=== PATIENT | female | born 1960 | race Caucasian/White ===

== ENCOUNTER 2017-04-29 14:36 | Observation (INO) | payer MEDICARE, MEDICAID ==
[2017-04-29] MEDS ORDERED: cefTRIAXone 1 gm 1 GM/100 ML BAG IV STA (15:15)
[2017-04-29] MEDS ORDERED: Sodium Chloride 0.9% 1,000 ML IV STA (15:15)
--- NOTE | 2017-04-29 15:15 | ED PDOC ---
Arrival/HPI - General Chief Complaint: Abdominal Pain Time Seen by Provider: 04/29/17 15:05 Historian: Patient - History of Present Illness Narrative History of Present Illness (Text): 04/29/17 15:10 a 56 year old female whose past medical history includes hypercholesterolemia, diabetes, and asthma presents to the emergency department with epigastric and lower abdominal pain and dark colored foul smelling urine for the past 7 days. The patient reports she has been on Flagyl since her symptoms began, but has not seen improvement. She notes nausea, but denies any vomiting, diarrhea, chest pain, shortness or breath, or any other symptoms at this time. Time/Duration: < week Symptom Onset: Gradual Symptom Course: Unchanged Activities at Onset: Light Context: Home Past Medical History - Provider Review Nursing Documentation Reviewed: Yes - Infectious Disease Hx of Infectious Diseases: None - Tetanus Immunization Tetanus Immunization: Unknown - Cardiac Hx Hypertension: Yes Hx Pacemaker: No - Pulmonary Hx Respiratory Disorders: Yes Hx Asthma: Yes - Neurological Hx Paralysis: No - HEENT Hx HEENT Disorder: Yes Hx Cataracts: Yes (b/l sx) - Renal Hx Renal Disorder: No - Endocrine/Metabolic Hx Endocrine Disorders: Yes Hx Diabetes Mellitus Type 2: Yes (NIDDM) Hx Hypothyroidism: Yes - Hematological/Oncological Hx Blood Transfusions: No Hx Blood Transfusion Reaction: No - Integumentary Hx Dermatological Disorder: No - Musculoskeletal/Rheumatological Hx Musculoskeletal Disorders: Yes (RA) - Gastrointestinal Hx Gastrointestinal Disorders: Yes (hemorrhoids, constipation, obese) Hx Gastroesophageal Reflux: Yes - Genitourinary/Gynecological Hx Genitourinary Disorders: No - Psychiatric Hx Emotional Abuse: No Hx Physical Abuse: No Hx Substance Use: No - Surgical History Hx Cholecystectomy: Yes Hx Hysterectomy: Yes Hx Orthopedic Surgery: Yes (b/l knee sx) Other/Comment: b/l arm sx for swelling, - Anesthesia Hx Anesthesia Reactions: Yes (PALPITATIONS) Hx Malignant Hyperthermia: No - Suicidal Assessment Feels Threatened In Home Enviroment: No Family/Social History - Physician Review Nursing Documentation Reviewed: Yes Family/Social History: No Known Family HX, Unknown Family HX Smoking Status: Never Smoked Hx Alcohol Use: No Hx Substance Use: No Hx Substance Use Treatment: No Allergies/Home Meds Allergies/Adverse Reactions: Allergies apple Allergy (Verified 11/04/16 17:25) ITCHING/NASAL,THROAT CONGESTION Home Medications: Home Meds Medication Instructions Recorded Confirmed Allopurinol [Zyloprim] 100 mg PO DAILY 04/29/17 04/29/17 Aspirin [Adult Low Dose Aspirin EC] 81 mg PO DAILY 04/29/17 04/29/17 Bisoprolol/HCTZ [Ziac 5 MG-6.25 MG] 1 tab PO DAILY 04/29/17 04/29/17 Ergocalciferol (Vitamin D2) 50,000 unit PO QWK 04/29/17 04/29/17 [Vitamin D2] Levothyroxine [Synthroid] 25 mcg PO DAILY 04/29/17 04/29/17 Linaclotide [Linzess] 290 mcg PO DAILY 04/29/17 04/29/17 Methenamine Hippurate 1 gm PO DAILY 04/29/17 04/29/17 Metronidazole [Flagyl] 500 mg PO QID 04/29/17 04/29/17 Pravastatin Sodium [Pravachol] 40 mg PO DAILY 04/29/17 04/29/17 SITagliptin [Januvia] 100 mg PO DAILY 04/29/17 04/29/17 Physical Exam - Physical Exam Narrative Physical Exam (Text): 04/29/17 15:23 - Review of Systems Constitutional: Normal. absent: Fatigue, Weight Change, Fevers Eyes: Normal ENT: Normal Respiratory: Normal absent: SOB, Cough, Sputum Cardiovascular: Normal absent: Chest pain, Palpitations, Syncope Gastrointestinal: + Nausea, Abdominal pain absent: Diarrhea, Vomiting Genitourinary: + Foul smelling urine. Discolored dark urine. absent: Dysuria, Frequency, Hematuria Musculoskeletal: Normal. absent: Arthralgias, Back Pain, Neck Pain Skin: Normal Neurological: Normal absent: Focal Weakness Endocrine: Normal Hemo/Lymphatic: Normal Psychiatric: Normal - Physical exam Patient appears age appropriate, speaking full sentences without difficulty - Systems Exam Head: Present: Atraumatic, Normocephalic Pupils: Present: PERRL Extraocular Muscles: Present: EOMI Conjunctiva: Present: Normal Mouth: Present: Moist Mucous Membranes Neck: Present: Normal Range of Motion. No: MIDLINE TENDERNESS, Paraspinal Tenderness Respiratory/Chest: Present: Clear to Auscultation, Good Air Exchange. No: Respiratory Distress, Accessory Muscle Use, Tachypnic Cardiovascular: Present: Regular Rate and Rhythm, Normal S1, S2, Peripheral Pulses Present. No: Murmurs Abdomen: Present: Epigastric and suprapubic tenderness. Normal Bowel Sounds, No : , Peritoneal Signs, Rebound, Guarding, Distention Back: Present: Normal Inspection. No: Midline Tenderness, Paraspinal Tenderness Upper Extremity: Present: Normal Inspection. No: Cyanosis, Edema Lower Extremity: Present: Normal Inspection. No: Edema Neurological: Present: GCS=15, Speech Normal, cranial nerves II through XII fully intact with no cerebellar abnormality, neuro-sensory fully intact. No focal neurological deficits. Skin: Present: Warm, Dry, Normal Color. No: Rashes Lymphatic: Present: OX3, NI, NC Psychiatric: Present: Alert, Oriented x 3, Normal Insight, Normal Concentration Vital Signs Reviewed: Yes Vital Signs Temp Pulse Resp BP Pulse Ox 04/29/17 16:37 66 16 110/64 100 04/29/17 15:30 79 16 107/69 98 04/29/17 14:43 98.7 F 104 H 16 107/72 96 Temperature: Afebrile Blood Pressure: Normal Pulse: Tachycardic Respiratory Rate: Normal Appearance: Positive for: Well-Appearing Pain Distress: None Mental Status: Positive for: Alert and Oriented X 3 Medical Decision Making ED Course and Treatment: 04/29/17 15:26 Impression: A 56 year old female with epigastric and abdominal pain with dark colored foul smelling urine. Pt has epigastric and suprapubuc tenderness to palpation Differential Diagnosis included but are not limited to: UTI, pyelo, non- specific abdominal pain Plan: -- Abdominal & Pelvis ultrasound -- EKG -- Labs -- Chest X-Ray -- Toradol, Zofran, Rocephin, IV fluids -- Urinalysis -- Reassess and disposition Prior Visits: Notes and results from previous visits were reviewed. Patient was last seen on 11/04/16 for DVT and was hospitalized. Progress Notes: EKG: Ordered, reviewed, and independently interpreted the EKG. Rate : 90 BPM Rhythm : NSR Interpretation : No ST-segment elevations or depressions, no T-wave inversions, normal intervals. 04/29/17 16:31 Chest X-Ray Doctor'S Assistant : Stan Pittman MD HISTORY:epig pain COMPARISON:11/04/2016 FINDINGS: LUNGS: No active pulmonary disease. 04/29/17 17:20 pt still cp abd pain despite toradol and morphine states she does not feel comfortable being dc'd home dw Dr. Taylor, accepted obs on med/surg to her service pt aware of and agrees with plan - Lab Interpretations Lab Results: 04/29/17 15:25 04/29/17 15:25 Lab Results 04/29/17 15:25: Total Creatine Kinase 69 04/29/17 15:25: Sodium 141, Potassium 4.3, Chloride 109 H, Carbon Dioxide 22, Anion Gap 14, BUN 27 H, Creatinine 1.5 H, Est GFR ( Amer) 44, Est GFR ( Non-Af Amer) 36, Random Glucose 129 H, Calcium 9.6, Total Bilirubin 0.4, AST 23 , ALT 13, Alkaline Phosphatase 75, Total Protein 8.1, Albumin 3.9, Globulin 4.2 , Albumin/Globulin Ratio 0.9 L, Lipase 92 04/29/17 15:25: PT 11.1, INR 1.03, APTT 29.8 04/29/17 15:25: WBC 8.6, RBC 4.96, Hgb 12.2, Hct 38.8, MCV 78.2 L, MCH 24.6 L, MCHC 31.4, RDW 16.7 H, Plt Count 247, MPV 9.2, Gran % 64.3, Lymph % (Auto) 24.6 , [place] % (Auto) 9.2 H, Eos % (Auto) 1.7, Baso % (Auto) 0.2, Gran # 5.55, Lymph # 2.1, [place] # 0.8 H, Eos # 0.2, Baso # 0.02 04/29/17 15:20: Urine Color Yellow, Urine Appearance Sl cloudy, Urine pH 6.0, Ur Specific [place] 1.025, Urine Protein Trace H, Urine Glucose (UA) Negative, Urine Ketones Trace H, Urine Blood Negative, Urine Nitrate Negative, Urine Bilirubin Negative, Urine Urobilinogen 0.2, Ur Leukocyte Esterase Trace H, Urine RBC Negative, Urine WBC 1 - 3, Ur Epithelial Cells 4 - 5, Urine Bacteria Mod, Urine Other Uyeast - RAD Interpretation Radiology Orders: 04/29/17 15:13 ABD & PELVIS W/O PO OR IV CONT [CT] Stat 04/29/17 15:14 CHEST PORTABLE [RAD] Stat - Medication Orders Current Medication Orders: Discontinued Medications Ceftriaxone Sodium (Rocephin 1 Gram Ivpb) 1 gm in 100 mls @ 200 mls/hr IV STAT STA PRN Reason: Protocol Stop: 04/29/17 15:44 Last Admin: 04/29/17 15:32 Dose: 200 mls/hr Sodium Chloride (Sodium Chloride 0.9%) 1,000 mls @ 1,000 mls/hr IV .Q1H STA Stop: 04/29/17 16:14 Last Admin: 04/29/17 15:30 Dose: 1,000 mls/hr Ketorolac Tromethamine (Toradol) 30 mg IVP STAT STA Stop: 04/29/17 15:16 Last Admin: 04/29/17 15:32 Dose: 30 mg Re-Assess: TONY Pain Assessment Document 04/29/17 16:32 YP (Rec: 04/29/17 16:55 YP [facility] [place]-[id number]) Pain Reassessment Is this a pain reassessment? Yes Sleep Is patient sleeping during reassessment? No Presence of Pain Presence of Pain Yes Morphine Sulfate (Morphine) 6 mg IVP STAT STA Stop: 04/29/17 16:56 Last Admin: 04/29/17 17:06 Dose: 6 mg Ondansetron HCl (Zofran Inj) 4 mg IVP STAT STA Stop: 04/29/17 15:16 Last Admin: 04/29/17 15:32 Dose: 4 mg Pantoprazole Sodium (Protonix Inj) 40 mg IVP STAT STA Stop: 04/29/17 16:08 Last Admin: 04/29/17 16:14 Dose: 40 mg - Scribe Statement The provider has reviewed the documentation as recorded by the Wood Kulkarni Provider Scribe Attestation: All medical record entries made by the Scribluis alfredo were at my direction and personally dictated by me. I have reviewed the chart and agree that the record accurately reflects my personal performance of the history, physical exam, medical decision making, and the department course for this patient. I have also personally directed, reviewed, and agree with the discharge instructions and disposition. Disposition/Present on Arrival - Present on Arrival Any Indicators Present on Arrival: No History of DVT/PE: No History of Uncontrolled Diabetes: No Urinary Catheter: No History of Decub. Ulcer: No History Surgical Site Infection Following: None - Disposition Have Diagnosis and Disposition been Completed?: Yes Diagnosis: Abdominal pain Disposition: HOSPITALIZED Disposition Time: 17:30 Patient Plan: Observation Condition: STABLE Forms: [email or web address] (Sammarinese)
[2017-04-29 15:34] LABS: URINE BILIRUBIN NEGATIVE (NEGATIVE); URINE BLOOD NEGATIVE (NEGATIVE); URINE GLUCOSE (UA) NEGATIVE (NEGATIVE); URINE KETONE TRACE mg/dL (NEGATIVE); URINE LEUKOCYTE ESTERASE TRACE Leu/uL (NEGATIVE); URINE PROTEIN TRACE mg/dL (<30 mg/dL); URINE UROBILINOGEN 0.2 E.U./dL (<1 E.U./dL)
[2017-04-29 15:35] LABS: ADD MANUAL DIFF? NO
[2017-04-29 15:36] LABS: URINE APPEARANCE SL CLOUDY (CLEAR); URINE COLOR YELLOW (YELLOW)
[2017-04-29 15:38] LABS: BASO # 0.02 K/mm3 (0.0-2.0); BASO % 0.2 % (0.0-3.0); EOS # 0.2 (0.0-0.7); EOS % 1.7 % (1.5-5.0); GRAN # 5.55 (1.4-6.5); GRAN % 64.3 % (50.0-68.0); HEMATOCRIT 38.8 % (36.0-48.0); LYMPH # 2.1 (1.2-3.4); LYMPH % 24.6 % (22.0-35.0); MEAN CELL VOLUME 78.2 fL (80.0-105.0); MEAN CORPUSCULAR HEMOGLOBIN 24.6 pg (25.0-35.0); MEAN CORPUSCULAR HGB CONC 31.4 g/dl (31.0-37.0); MEAN PLATELET VOLUME 9.2 fl (7.0-11.0); MONO # 0.8 (0.1-0.6); MONO % 9.2 % (1.0-6.0); PLATELET COUNT 247 10^3/uL (120.0-450.0); RED CELL DISTRIBUTION WIDTH 16.7 % (11.5-14.5); WHITE BLOOD COUNT 8.6 10^3/ul (4.5-11.0)
[2017-04-29 15:48] LABS: ALB/GLOB RATIO 0.9 (1.1-1.8); BILIRUBIN,TOTAL 0.4 mg/dL (0.2-1.3); CALCIUM 9.6 mg/dL (8.4-10.5); POTASSIUM 4.3 mmol/L (3.6-5.0); TOTAL PROTEIN 8.1 g/dL (5.8-8.3)
[2017-04-29 15:52] LABS: INR 1.03 (0.93-1.08); PARTIAL THROMBOPLASTIN TIME 29.8 Seconds (23.7-30.8)
[2017-04-29 15:53] LABS: URINE BACTERIA MOD (NEG); URINE RBC NEGATIVE /hpf (0-2)
--- NOTE | 2017-04-29 16:05 | RAD ---
HISTORY: epig pain COMPARISON: 11/04/2016 FINDINGS: LUNGS: No active pulmonary disease. PLEURA: No significant pleural effusion identified, no pneumothorax apparent. CARDIOVASCULAR: Normal. OSSEOUS STRUCTURES: No significant abnormalities. VISUALIZED UPPER ABDOMEN: Normal. OTHER FINDINGS: None. IMPRESSION: No active disease.
--- NOTE | 2017-04-29 17:03 | CT ---
PROCEDURE: CT Abdomen and Pelvis without intravenous contrast HISTORY: abd pain, hematuria COMPARISON: None. TECHNIQUE: Without contrast. Contrast Dose: Radiation dose: Total exam DLP = 1377 mGy-cm. This CT exam was performed using one or more of the following dose reduction techniques: Automated exposure control, adjustment of the mA and/or kV according to patient size, and/or use of iterative reconstruction technique. FINDINGS: LOWER THORAX: Unremarkable. LIVER: Unremarkable. No gross lesion or ductal dilatation. GALLBLADDER AND BILE DUCTS: Removed PANCREAS: Unremarkable. No gross lesion or ductal dilatation. SPLEEN: Unremarkable. ADRENALS: Unremarkable. No mass. KIDNEYS AND URETERS: Unremarkable. No hydronephrosis. No solid mass. VASCULATURE: Unremarkable. No aortic aneurysm. BOWEL: Unremarkable. No obstruction. No gross mural thickening. APPENDIX: Unremarkable. Normal appendix. PERITONEUM: Unremarkable. No free fluid. No free air. LYMPH NODES: Unremarkable. No enlarged lymph nodes. BLADDER: Unremarkable. REPRODUCTIVE: Unremarkable. BONES: No acute fracture. OTHER FINDINGS: None. IMPRESSION: No acute findings
[2017-04-29] MEDS ORDERED: Pantoprazole 40mg/100ml IVPB 40 MG/100 ML BAG IVPB SCH (19:00)
[2017-04-29] MEDS ORDERED: Albuterol-Ipratrop 3 mg / 0.5 (3 ml) UD IH PRN (19:08)
--- NOTE | 2017-04-29 19:12 | CP.PCM.PN ---
Subjective - Date & Time of Evaluation Date of Evaluation: 04/29/17 Time of Evaluation: 19:12 - Subjective Subjective: Requested by Dr.G. Singletary to enter order for ESR for her. Objective - Vital Signs/Intake and Output Vital Signs (last 24 hours): Temp Pulse Resp BP Pulse Ox 98.7 F 85 16 104/60 97 04/29/17 14:43 04/29/17 17:50 04/29/17 17:50 04/29/17 17:50 04/29/17 17:50 - Medications Medications: Current Medications Hydromorphone HCl (Dilaudid) 0.5 mg IVP Q6H PRN PRN Reason: Pain, severe (8-10) Pantoprazole Sodium (Protonix 40mg Ivpb) 40 mg in 100 mls @ 20 mls/hr IVPB .Q5H TINO Sodium Chloride (Sodium Chloride 0.9%) 1,000 mls @ 100 mls/hr IV .Q10H TINO - Labs Labs: PT 11.1 Seconds (9.9-11.8) 04/29/17 15:25 INR 1.03 (0.93-1.08) 04/29/17 15:25 APTT 29.8 Seconds (23.7-30.8) 04/29/17 15:25
--- NOTE | 2017-04-29 19:40 | CP.PCM.HP ---
History of Present Illness - History of Present Illness History of Present Illness: Patient is a 56 year old female with past medical history of GERD, DM2, Asthma, elevated cholesterol and DVT in 10/2016 who presents with one week history of abdominal pain and dark colored urine. The patient reports the abdominal pain is mid epigastric, dull, without radiation and has been getting progressively worse throughout the week. She denies diarrhea, fever, chest pain, shortness of breath, and vomiting. She was prescribed a week course of flagyl by her PCP for the presenting symptoms. The patient was evaluated in the emergency department and a CT abdomen showed no acute findings. The patient was treated with IV morphine and zofran for symptoms. Patients WBC was normal and her BUN/Cr was elevated. The patient states she has had appropriate fluid intake. Urinalysis showed presence of yeast, trace ketones, protein and leukoesterase. Patient denies any pain with urination or difficulty with urination. PMH: GERD, DM2, Elevated CH, Asthma, hx of DVT PSH: Hysterectomy with oopherectomy ALL: NKDA SocHx: Tobacco denies, ETOH denies, Drugs denies, Lives at home by herself Meds: See MAR Present on Admission - Present on Admission Any Indicators Present on Admission: Yes History of DVT/PE: Yes History of Uncontrolled Diabetes: No Urinary Catheter: No Decubitus Ulcer Present: No Review of Systems - Constitutional Constitutional: absent: Chills, Fever, Headache, Weight Loss - Cardiovascular Cardiovascular: As Per HPI, Chest Pain - Respiratory Respiratory: As Per HPI - Gastrointestinal Gastrointestinal: Abdominal Pain, Belching, Heartburn, Nausea. absent: Diarrhea , Early Satiety, Vomiting - Genitourinary Genitourinary: absent: Change in Urinary Stream, Difficulty Urinating, Dysuria - Reproductive: Female Reproductive:Female: Vaginal Discharge (watery ), Vaginal Odor. absent: Abnormal Vaginal Bleeding - Integumentary Integumentary: absent: Pruritus, Rash, Swelling - Neurological Neurological: As Per HPI - Psychiatric Psychiatric: As Per HPI - Hematologic/Lymphatic Hematologic: absent: Easy Bleeding, Easy Bruising Past Patient History - Infectious Disease Hx of Infectious Diseases: None - Tetanus Immunizations Tetanus Immunization: Unknown - Past Medical History & Family History Past Medical History?: Yes - Past Social History Smoking Status: Never Smoked - CARDIAC Hx Hypertension: Yes Hx Pacemaker: No - PULMONARY Hx Respiratory Disorders: Yes Hx Asthma: Yes - NEUROLOGICAL Hx Paralysis: No - HEENT Hx HEENT Problems: Yes Hx Cataracts: Yes (b/l sx) - RENAL Hx Chronic Kidney Disease: No - ENDOCRINE/METABOLIC Hx Endocrine Disorders: Yes Hx Diabetes Mellitus Type 2: Yes (NIDDM) Hx Hypothyroidism: Yes - HEMATOLOGICAL/ONCOLOGICAL Hx Blood Transfusions: No Hx Blood Transfusion Reaction: No - INTEGUMENTARY Hx Dermatological Problems: No - MUSCULOSKELETAL/RHEUMATOLOGICAL Hx Musculoskeletal Disorders: Yes (RA) - GASTROINTESTINAL Hx Gastrointestinal Disorders: Yes (hemorrhoids, constipation, obese) Hx Gastroesophageal Reflux: Yes - GENITOURINARY/GYNECOLOGICAL Hx Genitourinary Disorders: No - PSYCHIATRIC Hx Emotional Abuse: No Hx Physical Abuse: No Hx Substance Use: No - SURGICAL HISTORY Hx Cholecystectomy: Yes Hx Hysterectomy: Yes Hx Orthopedic Surgery: Yes (b/l knee sx) Other/Comment: b/l arm sx for swelling, - ANESTHESIA Hx Anesthesia Reactions: Yes (PALPITATIONS) Hx Malignant Hyperthermia: No Meds Allergies/Adverse Reactions: Allergies Allergy/AdvReac Type Severity Reaction Status Date / Time apple Allergy ITCHING/NASAL,THROAT Verified 11/04/16 17:25 CONGESTION Physical Exam - Head Exam Head Exam: ATRAUMATIC, NORMAL INSPECTION, NORMOCEPHALIC - Eye Exam Eye Exam: EOMI, PERRL - ENT Exam ENT Exam: Mucous Membranes Dry - Respiratory Exam Respiratory Exam: Clear to Auscultation Bilateral, NORMAL BREATHING PATTERN - Cardiovascular Exam Cardiovascular Exam: REGULAR RHYTHM, +S1, +S2 - GI/Abdominal Exam GI & Abdominal Exam: Normal Bowel Sounds, Soft, Tenderness (mid epigastric) - Exam External exam: NORMAL EXTERNAL EXAM. absent: Ecchymosis, Erythema, Lacerations , Lesions Speculum exam: Cervical Discharge, Vaginal Discharge (white fluid discharge). absent: Vaginal Bleeding Bimanual exam: NORMAL BIMANUAL EXAM - Extremities Exam Extremities exam: Positive for: joint swelling, normal inspection - Neurological Exam Neurological exam: Alert, CN II-XII Intact, Normal Gait, Oriented x3 - Psychiatric Exam Psychiatric exam: Normal Affect, Normal Mood - Skin Skin Exam: Dry, Normal Color, Warm Results - Vital Signs Recent Vital Signs: Last Vital Signs Temp 98.7 F 04/29/17 14:43 Pulse 85 04/29/17 17:50 Resp 16 04/29/17 17:50 BP 104/60 04/29/17 17:50 Pulse Ox 97 04/29/17 17:50 - Labs Result Diagrams: 04/29/17 15:25 04/29/17 15:25 Assessment & Plan - Assessment and Plan (Free Text) Assessment: Patient is a 56 year old female with past medical history of GERD, DM2, elevated cholesterol, esophagitis, and gastritis who presents with abdominal pain lasting one week Plan: 1. Lower abdominal pain secondary to DM2 vs. gastritis vs. adhesions - CT scan of abdomen showing no acute findings - FOBT - GI consult - Protonix - IV Dilaudid 2. Foul smelling vaginal alverto - Chronic history of foul smelling vaginal alverto - UA showing yeast, trace leuk est, ketones, proteins - watery discharge - Vaginal cultures 3. JACINTO - Cr 1.5 from previous 1.2 - IVF 0.9% NS 1 Liter - CMP tomorrow for evaluation 4. DM2 - ISS - ACHS 5. Hx of GERD - Protonix 6. Hx of DVT - Heparin 7. GI/DVT ppx - Protonix and Heparin - Date & Time Date: 04/29/17 Time: 20:13
[2017-04-29] MEDS: Sodium Chloride 0.9% 1,000 ML IV SCH (22:22)
[2017-04-29] MEDS: Insulin Reg-MEDIUM-Coverage SC SCH (22:23)
[2017-04-30 03:20] VITALS: BMI 37.8
[2017-04-30] MEDS ORDERED: Pneumococcal 23-Valent Vaccine IM ONE (03:20)
[2017-04-30 07:40] LABS: ADD MANUAL DIFF? NO
[2017-04-30] MEDS: Insulin Reg-MEDIUM-Coverage SC SCH ×3 (08:00→21:52)
[2017-04-30 08:01] LABS: BASO # 0.03 K/mm3 (0.0-2.0); BASO % 0.5 % (0.0-3.0); EOS # 0.2 (0.0-0.7); EOS % 2.3 % (1.5-5.0); GRAN # 3.79 (1.4-6.5); HEMATOCRIT 37.3 % (36.0-48.0); LYMPH # 2.2 (1.2-3.4); LYMPH % 32.8 % (22.0-35.0); MEAN CELL VOLUME 78.7 fL (80.0-105.0); MEAN CORPUSCULAR HEMOGLOBIN 23.6 pg (25.0-35.0); MONO # 0.5 (0.1-0.6); MONO % 7.4 % (1.0-6.0); PLATELET COUNT 226 10^3/uL (120.0-450.0); RED CELL DISTRIBUTION WIDTH 16.8 % (11.5-14.5); WHITE BLOOD COUNT 6.6 10^3/ul (4.5-11.0)
[2017-04-30 08:05] LABS: ALB/GLOB RATIO 0.9 (1.1-1.8); BILIRUBIN,TOTAL 0.3 mg/dL (0.2-1.3); CALCIUM 8.7 mg/dL (8.4-10.5); POTASSIUM 4.3 mmol/L (3.6-5.0); TOTAL PROTEIN 7.2 g/dL (5.8-8.3)
--- NOTE | 2017-04-30 09:38 | CARD ---
APPROVED REPORT EKG Measurement Heart [id number] <Conclusion> Normal sinus rhythm Normal ECG No change
[2017-04-30] MEDS ORDERED: Non Formulary Medication (Linaclotide [Linzess] 290 MCG) PO SCH (10:00)
[2017-04-30] MEDS: Levothyroxine 25 MCG TAB PO SCH (10:00)
[2017-04-30] MEDS ORDERED: Non Formulary Medication (Bisoprolol/Hctz [Ziac 5-6.25 Mg] 1 TAB) PO SCH (10:00)
--- NOTE | 2017-04-30 10:55 | CP.PCM.CON ---
<Raciel Valles - Last Filed: 04/30/17 10:56> History of Present Illness - History of Present Illness History of Present Illness: PGY5 GI Fellow Consult Note Patient is a 56yo female with PMHx significant for GERD, DM2, Hypothyroidism, dyslipidemia, recent DVT (Oct 2016), asthma who presented to the ED with 3 days of worsening abdominal pain. Pain began in the lower abdomen/suprapubic region and patient noted her urine was becoming darker/malodorous. In the days that followed she began to have epigastric, burning discomfort as well. She tried using Zantac BID as well as Miralax but had no improvement in symptoms. She denies any improvement with defecation. Denies any rectal bleeding/melena, nausea, vomiting, weight loss, dysphagia, fever, chills. She had endoscopy and colonoscopy with Dr Dumont in the end of 2015 which did reveal LA class A esophagitis. PMHx: See HPI PSHx: Cholecystectomy, hysterectomy FHx: Discussed with patient and she denies any prior family history Social: Denies tobacco, EtOH or illicit drug use Endo: EGD - 07/10 - LA A esophagitis Colonoscopy - 09/08 - diverticulosis 12 system ROS performed and negative except where stated above Past Patient History - Infectious Disease Hx of Infectious Diseases: None - Tetanus Immunizations Tetanus Immunization: Unknown - Past Medical History & Family History Past Medical History?: Yes - Past Social History Smoking Status: Never Smoked - CARDIAC Hx Hypertension: Yes Hx Pacemaker: No - PULMONARY Hx Respiratory Disorders: Yes Hx Asthma: Yes - NEUROLOGICAL Hx Neurological Disorder: No - HEENT Hx HEENT Problems: Yes Hx Cataracts: Yes (b/l sx) - RENAL Hx Chronic Kidney Disease: No - ENDOCRINE/METABOLIC Hx Endocrine Disorders: Yes Hx Diabetes Mellitus Type 2: Yes (NIDDM) Hx Hypothyroidism: Yes - HEMATOLOGICAL/ONCOLOGICAL Hx Blood Disorders: Yes Hx Anemia: Yes - INTEGUMENTARY Hx Dermatological Problems: No - MUSCULOSKELETAL/RHEUMATOLOGICAL Hx Musculoskeletal Disorders: Yes (RA) Hx Falls: No - GASTROINTESTINAL Hx Gastrointestinal Disorders: Yes (hemorrhoids, constipation, obese) Hx Gastroesophageal Reflux: Yes - GENITOURINARY/GYNECOLOGICAL Hx Genitourinary Disorders: No - PSYCHIATRIC Hx Emotional Abuse: No Hx Physical Abuse: No Hx Substance Use: No - SURGICAL HISTORY Hx Cholecystectomy: Yes Hx Hysterectomy: Yes Hx Orthopedic Surgery: Yes (b/l knee sx) Other/Comment: b/l arm sx for swelling, - ANESTHESIA Hx Anesthesia Reactions: Yes (PALPITATIONS) Hx Malignant Hyperthermia: No Meds Allergies/Adverse Reactions: Allergies Allergy/AdvReac Type Severity Reaction Status Date / Time apple Allergy ITCHING/NASAL,THROAT Verified 11/04/16 17:25 CONGESTION - Medications Medications: Current Medications Acetaminophen (Tylenol 325mg Tab) 650 mg PO Q6H PRN PRN Reason: Fever >100.4 F Albuterol/Ipratropium (Duoneb 3 Mg/0.5 Mg (3 Ml) Ud) 3 ml IH Q2H PRN PRN Reason: Shortness of Breath Last Admin: 04/29/17 20:50 Dose: 3 ml Aspirin (Ecotrin) 81 mg PO DAILY [facility] Last Admin: 04/30/17 10:00 Dose: 81 mg Atorvastatin Calcium (Lipitor) 10 mg PO DIN [facility] Ergocalciferol (Drisdol 50,000 Intl Units Cap) 1 cap PO QWK [facility] Heparin Sodium (Porcine) (Heparin) 5,000 units SC Q8 [facility] PRN Reason: Protocol Last Admin: 04/30/17 06:00 Dose: 5,000 units Hydromorphone HCl (Dilaudid) 0.5 mg IVP Q6H PRN PRN Reason: Pain, severe (8-10) Pantoprazole Sodium (Protonix 40mg Ivpb) 40 mg in 100 mls @ 20 mls/hr IVPB .Q5H [facility] Sodium Chloride (Sodium Chloride 0.9%) 1,000 mls @ 100 mls/hr IV .Q10H [facility] Last Admin: 04/29/17 22:22 Dose: 100 mls/hr Insulin Human Regular (Humulin R Med) 0 units SC ACHS [facility] PRN Reason: Protocol Last Admin: 04/30/17 08:00 Dose: Not Given Levothyroxine Sodium (Synthroid) 25 mcg PO DAILY [facility] Last Admin: 04/30/17 10:00 Dose: 25 mcg Metronidazole (Flagyl) 500 mg PO QID [facility] PRN Reason: Protocol Stop: 05/02/17 22:01 Last Admin: 04/30/17 09:59 Dose: 500 mg Non-Formulary Medication (Bisoprolol/Hctz [Ziac 5-6.25 Mg]) 1 tab PO DAILY [facility] Non-Formulary Medication (Linaclotide [Linzess]) 290 mcg PO DAILY [facility] Pantoprazole Sodium (Protonix Inj) 40 mg IVP Q12 [facility] Last Admin: 04/30/17 10:00 Dose: 40 mg Physical Exam - Constitutional Appears: Non-toxic, No Acute Distress, Other (obese) - Eye Exam Eye Exam: EOMI, PERRL - ENT Exam ENT Exam: Mucous Membranes Moist - Respiratory Exam Respiratory Exam: Clear to Auscultation Bilateral. absent: Rales, Rhonchi, Wheezes - Cardiovascular Exam Cardiovascular Exam: RRR, +S1, +S2 - GI/Abdominal Exam GI & Abdominal Exam: Normal Bowel Sounds, Soft. absent: Distended, Firm, Guarding, Organomegaly, Rigid, Tenderness - Extremities Exam Extremities exam: Positive for: normal inspection. Negative for: pedal edema - Neurological Exam Neurological exam: Alert, Oriented x3 - Psychiatric Exam Psychiatric exam: Anxious - Skin Skin Exam: Dry, Warm Results - Vital Signs Recent Vital Signs: Last Vital Signs Temp 97.4 F L 04/30/17 07:50 Pulse 63 04/30/17 07:50 Resp 22 04/30/17 07:50 BP 90/52 L 04/30/17 07:50 Pulse Ox 99 04/30/17 07:50 - Labs Result Diagrams: 04/30/17 07:00 04/30/17 07:00 Labs: Laboratory Results - last 24 hr 04/29/17 04/30/17 04/30/17 21:33 07:00 07:00 WBC 6.6 D RBC 4.74 Hgb 11.2 L Hct 37.3 MCV 78.7 L MCH 23.6 L MCHC 30.0 L RDW 16.8 H Plt Count 226 MPV 9.0 Gran % 57.0 Lymph % (Auto) 32.8 Wheeler % (Auto) 7.4 H Eos % (Auto) 2.3 Baso % (Auto) 0.5 Gran # 3.79 Lymph # 2.2 Wheeler # 0.5 Eos # 0.2 Baso # 0.03 Sodium 142 Potassium 4.3 Chloride 113 H Carbon Dioxide 19 L Anion Gap 14 BUN 27 H Creatinine 1.6 H Est GFR ( Amer) 41 Est GFR (Non-Af Amer) 34 POC Glucose (mg/dL) 120 H Random Glucose 109 Calcium 8.7 Total Bilirubin 0.3 AST 22 ALT 20 Alkaline Phosphatase 69 Total Protein 7.2 Albumin 3.3 Globulin 3.8 Albumin/Globulin Ratio 0.9 L 04/30/17 07:17 WBC RBC Hgb Hct MCV MCH MCHC RDW Plt Count MPV Gran % Lymph % (Auto) Wheeler % (Auto) Eos % (Auto) Baso % (Auto) Gran # Lymph # Wheeler # Eos # Baso # Sodium Potassium Chloride Carbon Dioxide Anion Gap BUN Creatinine Est GFR ( Amer) Est GFR (Non-Af Amer) POC Glucose (mg/dL) 112 H Random Glucose Calcium Total Bilirubin AST ALT Alkaline Phosphatase Total Protein Albumin Globulin Albumin/Globulin Ratio Assessment & Plan - Assessment and Plan (Free Text) Assessment: Patient is a 56yo female with PMHx significant for GERD, DM2, Hypothyroidism, dyslipidemia, recent DVT (Oct 2016), asthma who presented to the ED with 3 days of worsening abdominal pain -Lower abdominal/pelvic pain Plan: -CT reviewed, unremarkable -Recommend supportive care -Protonix 40mg PO QAMAC -Miralax 17g PO QD -Evaluate for possible uro/remedial masseur issues -No further recommendations at this time - Date & Time Date: 04/30/17 Time: 07:40 <Jorge Mcduffie - Last Filed: 04/30/17 13:42> Meds - Medications Medications: Current Medications Acetaminophen (Tylenol 325mg Tab) 650 mg PO Q6H PRN PRN Reason: Fever >100.4 F Albuterol/Ipratropium (Duoneb 3 Mg/0.5 Mg (3 Ml) Ud) 3 ml IH Q2H PRN PRN Reason: Shortness of Breath Last Admin: 04/29/17 20:50 Dose: 3 ml Aspirin (Ecotrin) 81 mg PO DAILY [facility] Last Admin: 04/30/17 10:00 Dose: 81 mg Atorvastatin Calcium (Lipitor) 10 mg PO DIN [facility] Ergocalciferol (Drisdol 50,000 Intl Units Cap) 1 cap PO QWK [facility] Heparin Sodium (Porcine) (Heparin) 5,000 units SC Q8 [facility] PRN Reason: Protocol Last Admin: 04/30/17 06:00 Dose: 5,000 units Hydromorphone HCl (Dilaudid) 0.5 mg IVP Q6H PRN PRN Reason: Pain, severe (8-10) Pantoprazole Sodium (Protonix 40mg Ivpb) 40 mg in 100 mls @ 20 mls/hr IVPB .Q5H [facility] Sodium Chloride (Sodium Chloride 0.9%) 1,000 mls @ 100 mls/hr IV .Q10H [facility] Last Admin: 04/29/17 22:22 Dose: 100 mls/hr Metronidazole (Flagyl) 500 mg in 100 mls @ 100 mls/hr IVPB Q8 [facility] PRN Reason: Protocol Insulin Human Regular (Humulin R Med) 0 units SC ACHS [facility] PRN Reason: Protocol Last Admin: 04/30/17 08:00 Dose: Not Given Levothyroxine Sodium (Synthroid) 25 mcg PO DAILY [facility] Last Admin: 04/30/17 10:00 Dose: 25 mcg Miconazole (Monistat 7 Vag Suppository) 100 mg VG HS [facility] Non-Formulary Medication (Bisoprolol/Hctz [Ziac 5-6.25 Mg]) 1 tab PO DAILY [facility] Non-Formulary Medication (Linaclotide [Linzess]) 290 mcg PO DAILY [facility] Pantoprazole Sodium (Protonix Inj) 40 mg IVP Q12 [facility] Last Admin: 04/30/17 10:00 Dose: 40 mg Results - Vital Signs Recent Vital Signs: Last Vital Signs Temp 97.4 F L 04/30/17 07:50 Pulse 63 04/30/17 07:50 Resp 22 04/30/17 07:50 BP 90/52 L 04/30/17 07:50 Pulse Ox 99 04/30/17 07:50 - Labs Result Diagrams: 04/30/17 07:00 04/30/17 07:00 Labs: Laboratory Results - last 24 hr 04/29/17 04/30/17 04/30/17 21:33 07:00 07:00 WBC 6.6 D RBC 4.74 Hgb 11.2 L Hct 37.3 MCV 78.7 L MCH 23.6 L MCHC 30.0 L RDW 16.8 H Plt Count 226 MPV 9.0 Gran % 57.0 Lymph % (Auto) 32.8 Wheeler % (Auto) 7.4 H Eos % (Auto) 2.3 Baso % (Auto) 0.5 Gran # 3.79 Lymph # 2.2 Wheeler # 0.5 Eos # 0.2 Baso # 0.03 pO2 VBG pH VBG pCO2 VBG HCO3 VBG Total CO2 VBG O2 Sat (Calc) VBG Base Excess VBG Potassium Glucose Lactate FiO2 Sodium 142 Potassium 4.3 Chloride 113 H Carbon Dioxide 19 L Anion Gap 14 BUN 27 H Creatinine 1.6 H Est GFR ( Amer) 41 Est GFR (Non-Af Amer) 34 POC Glucose (mg/dL) 120 H Random Glucose 109 Calcium 8.7 Total Bilirubin 0.3 AST 22 ALT 20 Alkaline Phosphatase 69 Total Protein 7.2 Albumin 3.3 Globulin 3.8 Albumin/Globulin Ratio 0.9 L Venous Blood Potassium 04/30/17 04/30/17 04/30/17 07:17 11:00 12:20 WBC RBC Hgb Hct MCV MCH MCHC RDW Plt Count MPV Gran % Lymph % (Auto) Wheeler % (Auto) Eos % (Auto) Baso % (Auto) Gran # Lymph # Wheeler # Eos # Baso # pO2 152 H VBG pH 7.25 L VBG pCO2 46.0 VBG HCO3 20.2 L VBG Total CO2 21.6 L VBG O2 Sat (Calc) 99.6 H VBG Base Excess -7.0 L VBG Potassium 5.3 H Glucose 117 H Lactate 0.8 FiO2 21.0 Sodium 146.0 Potassium Chloride 108.0 H Carbon Dioxide Anion Gap BUN Creatinine Est GFR ( Amer) Est GFR (Non-Af Amer) POC Glucose (mg/dL) 112 H 146 H Random Glucose Calcium Total Bilirubin AST ALT Alkaline Phosphatase Total Protein Albumin Globulin Albumin/Globulin Ratio Venous Blood Potassium 5.3 H Attending/Attestation - Attestation I have personally seen and examined this patient.: Yes I have fully participated in the care of the patient.: Yes I have reviewed all pertinent clinical information: Yes Notes (Text): 04/30/17 13:41 56 year old female with h/o cholecystectomy, hysterectomy admitted with non- specific abdominal pain 1. Abdominal pain 2. Constipation Plan: -CT reviewed, unremarkable -labs normal -recommend bowel regimen with miralax -ok for discharge from GI standpoint -patient identifies Dr. Rogel as her GI doctor so would consult with him if necessary
[2017-04-30 12:28] LABS: VENOUS BLOOD PH 7.25 (7.32-7.43)
[2017-04-30] MEDS ORDERED: Magnesium Citrate Oral SOL (300 ml) PO ONE (13:26)
--- NOTE | 2017-04-30 14:37 | CP.PCM.PN ---
<Galilea Winslow - Last Filed: 04/30/17 15:04> Subjective - Date & Time of Evaluation Date of Evaluation: 04/30/17 Time of Evaluation: 09:30 - Subjective Subjective: Galilea Winslow DO, PGY-1, Internal Medicine, Hospitalist Service Patient seen and examined at bedside. Per nursing no acute events overnight. Patient reports still having generalized abdominal pain and is nauseous. No other complaints at this time. Per previous documentation, patient has a history of DVT and is on Eliquis, states that her PCP told her to just continue ASA. Denies headaches, dizziness, cp, sob, palpitations, urinary symptoms, changes in bowel habits. Objective - Vital Signs/Intake and Output Vital Signs (last 24 hours): Temp Pulse Resp BP Pulse Ox 97.4 F L 63 22 105/56 L 99 04/30/17 07:50 04/30/17 07:50 04/30/17 07:50 04/30/17 11:30 04/30/17 07:50 Intake and Output: 04/30/17 04/30/17 06:59 18:59 Intake Total 180 Balance 180 - Medications Medications: Current Medications Acetaminophen (Tylenol 325mg Tab) 650 mg PO Q6H PRN PRN Reason: Fever >100.4 F Albuterol/Ipratropium (Duoneb 3 Mg/0.5 Mg (3 Ml) Ud) 3 ml IH Q2H PRN PRN Reason: Shortness of Breath Last Admin: 04/29/17 20:50 Dose: 3 ml Aspirin (Ecotrin) 81 mg PO DAILY [facility] Last Admin: 04/30/17 10:00 Dose: 81 mg Atorvastatin Calcium (Lipitor) 10 mg PO DIN [facility] Ergocalciferol (Drisdol 50,000 Intl Units Cap) 1 cap PO QWK [facility] Heparin Sodium (Porcine) (Heparin) 5,000 units SC Q8 [facility] PRN Reason: Protocol Last Admin: 04/30/17 06:00 Dose: 5,000 units Hydromorphone HCl (Dilaudid) 0.5 mg IVP Q6H PRN PRN Reason: Pain, severe (8-10) Pantoprazole Sodium (Protonix 40mg Ivpb) 40 mg in 100 mls @ 20 mls/hr IVPB .Q5H [facility] Sodium Chloride (Sodium Chloride 0.9%) 1,000 mls @ 100 mls/hr IV .Q10H [facility] Last Admin: 04/29/17 22:22 Dose: 100 mls/hr Metronidazole (Flagyl) 500 mg in 100 mls @ 100 mls/hr IVPB Q8 [facility] PRN Reason: Protocol Insulin Human Regular (Humulin R Med) 0 units SC ACHS [facility] PRN Reason: Protocol Last Admin: 04/30/17 08:00 Dose: Not Given Levothyroxine Sodium (Synthroid) 25 mcg PO DAILY [facility] Last Admin: 04/30/17 10:00 Dose: 25 mcg Miconazole (Monistat 7 Vag Suppository) 100 mg VG HS [facility] Non-Formulary Medication (Bisoprolol/Hctz [Ziac 5-6.25 Mg]) 1 tab PO DAILY [facility] Non-Formulary Medication (Linaclotide [Linzess]) 290 mcg PO DAILY [facility] Pantoprazole Sodium (Protonix Inj) 40 mg IVP Q12 [facility] Last Admin: 04/30/17 10:00 Dose: 40 mg - Labs Labs: 04/30/17 07:00 04/30/17 07:00 PT 11.1 Seconds (9.9-11.8) 04/29/17 15:25 INR 1.03 (0.93-1.08) 04/29/17 15:25 APTT 29.8 Seconds (23.7-30.8) 04/29/17 15:25 - Constitutional Appears: Well, No Acute Distress - Head Exam Head Exam: ATRAUMATIC, NORMAL INSPECTION - Eye Exam Eye Exam: EOMI, Normal appearance Pupil Exam: NORMAL ACCOMODATION - ENT Exam ENT Exam: Mucous Membranes Moist - Neck Exam Neck Exam: Full ROM - Respiratory Exam Respiratory Exam: Clear to Ausculation Bilateral, NORMAL BREATHING PATTERN. absent: Rales, Rhonchi, Wheezes - Cardiovascular Exam Cardiovascular Exam: REGULAR RHYTHM, +S1, +S2 - GI/Abdominal Exam GI & Abdominal Exam: Soft, Tenderness. absent: Guarding, Rigid, Rebound Additional comments: Generalized abd tenderness to palpation - Extremities Exam Extremities Exam: Full ROM, Normal Inspection. absent: Calf Tenderness, Tenderness - Back Exam Back Exam: NORMAL INSPECTION - Neurological Exam Neurological Exam: Alert, Awake, Oriented x3 - Psychiatric Exam Psychiatric exam: Normal Affect, Normal Mood - Skin Skin Exam: Normal Color, Warm Assessment and Plan - Assessment and Plan (Free Text) Assessment: Patient is a 56 year old female with past medical history of GERD, DM2, elevated cholesterol, esophagitis, and gastritis who presents with abdominal pain lasting one week Plan: 1. Lower abdominal pain, inflammatory bowel disease vs. colitis vs. adhesions - CT scan of abdomen showing no acute findings - GI consult, F/U recommendations - Continue IVF - Will give 1 dose of IV Rocephin - CLD, will advance as tolerated - Zofran prn nausea - F/U stool studies - F/U urine, blood cx 2. Vaginitis - S/P hysterectomy, with oopherectomy? - Chronic history of foul smelling vaginal discharge, c/o white watery discharge - UA showing yeast, trace leuk est, ketones, proteins - F/U Vaginal cultures - F/U pelvis ultrasound - Continue Monistat Vaginal suppository - Continue IV Flagyl 3. Acute Kidney Injury, likely 2/2 dehydration - Cr 1.6 today - F/U urine lytes - Continue IVF 0.9% NS 1 Liter - F/U CMP tomorrow for evaluation 4. Hx of constipation -On linzess at home -Will order mag citrate -Continue to monitor 5. Hypercholesterolemia -Continue Lipitor -Continue ASA 6. DM2 - ISS - Accuchecks ACHS 7. Hx of GERD - Protonix 8. Hx of DVT - Called pharmacy to verify medications, patient has never filled prescription for Eliquis - Will repeat LE dopplers to assess for DVTs - Continue Heparin 9. Hypothyroidism - Continue Synthroid 10. GI/DVT ppx - Protonix and Heparin <Antonia Zafar - Last Filed: 04/30/17 19:55> Objective - Vital Signs/Intake and Output Vital Signs (last 24 hours): Temp Pulse Resp BP Pulse Ox 98.6 F 80 16 109/68 97 04/30/17 15:54 04/30/17 15:54 04/30/17 15:54 04/30/17 15:54 04/30/17 15:54 Intake and Output: 04/30/17 05/01/17 18:59 06:59 Intake Total 880 Balance 880 - Medications Medications: Current Medications Acetaminophen (Tylenol 325mg Tab) 650 mg PO Q6H PRN PRN Reason: Fever >100.4 F Albuterol/Ipratropium (Duoneb 3 Mg/0.5 Mg (3 Ml) Ud) 3 ml IH Q2H PRN PRN Reason: Shortness of Breath Last Admin: 04/29/17 20:50 Dose: 3 ml Aspirin (Ecotrin) 81 mg PO DAILY [facility] Last Admin: 04/30/17 10:00 Dose: 81 mg Atorvastatin Calcium (Lipitor) 10 mg PO DIN [facility] Last Admin: 04/30/17 17:54 Dose: 10 mg Ergocalciferol (Drisdol 50,000 Intl Units Cap) 1 cap PO QWK [facility] Heparin Sodium (Porcine) (Heparin) 5,000 units SC Q8 [facility] PRN Reason: Protocol Last Admin: 04/30/17 14:59 Dose: 5,000 units Home Med (Home Med) 1 unit PO DAILY [facility] Home Med (Home Med) 1 unit PO DAILY [facility] Hydromorphone HCl (Dilaudid) 0.5 mg IVP Q6H PRN PRN Reason: Pain, severe (8-10) Sodium Chloride (Sodium Chloride 0.9%) 1,000 mls @ 100 mls/hr IV .Q10H [facility] Last Admin: 04/30/17 17:57 Dose: 100 mls/hr Metronidazole (Flagyl) 500 mg in 100 mls @ 100 mls/hr IVPB Q8 [facility] PRN Reason: Protocol Last Admin: 04/30/17 14:59 Dose: 100 mls/hr Insulin Human Regular (Humulin R Med) 0 units SC ACHS [facility] PRN Reason: Protocol Last Admin: 04/30/17 12:00 Dose: Not Given Levothyroxine Sodium (Synthroid) 25 mcg PO DAILY [facility] Last Admin: 04/30/17 10:00 Dose: 25 mcg Miconazole (Monistat 7 Vag Suppository) 100 mg VG HS [facility] Pantoprazole Sodium (Protonix Inj) 40 mg IVP Q12 [facility] Last Admin: 04/30/17 10:00 Dose: 40 mg - Labs Labs: 04/30/17 07:00 04/30/17 07:00 PT 11.1 Seconds (9.9-11.8) 04/29/17 15:25 INR 1.03 (0.93-1.08) 04/29/17 15:25 APTT 29.8 Seconds (23.7-30.8) 04/29/17 15:25 Attending/Attestation - Attestation I have personally seen and examined this patient.: Yes I have fully participated in the care of the patient.: Yes I have reviewed all pertinent clinical information, including history, physical exam and plan: Yes Notes (Text): 04/30/17 19:54 Patient seen and examined at bedside. vitals, labs, admission notes and GI consult reviewed. Recommendations noted, continue IV antibiotics. Agree with the remainder of the plan as outlined by the resident.
[2017-04-30] MEDS ORDERED: LINZESS 290 MG PO SCH (14:47)
[2017-04-30] MEDS ORDERED: Bisoprolol/Hctz [Ziac 5-6.25 Mg] (HOME MED) PO SCH (14:52)
[2017-04-30] MEDS: metroNIDAZOLE IV 500 mg/100 ml 500 MG/100 ML BAG IVPB SCH ×2 (14:59→21:12)
[2017-04-30] MEDS: Sodium Chloride 0.9% 1,000 ML IV SCH ×2 (15:01→17:57)
[2017-04-30] MEDS: HYDROmorphone 0.5 mg/0.5 ml ISec IVP PRN (20:42)
[2017-04-30] MEDS ORDERED: Miconazole 100 MG Vaginal Supp VG SCH (22:00)
[2017-05-01] MEDS: metroNIDAZOLE IV 500 mg/100 ml 500 MG/100 ML BAG IVPB SCH ×2 (05:12→14:51)
[2017-05-01 07:28] LABS: ADD MANUAL DIFF? NO
[2017-05-01 07:41] LABS: BASO # 0.03 K/mm3 (0.0-2.0); BASO % 0.5 % (0.0-3.0); EOS # 0.2 (0.0-0.7); EOS % 2.6 % (1.5-5.0); GRAN # 4.12 (1.4-6.5); GRAN % 63.7 % (50.0-68.0); HEMATOCRIT 36.5 % (36.0-48.0); LYMPH # 1.7 (1.2-3.4); LYMPH % 26.5 % (22.0-35.0); MEAN CELL VOLUME 78.2 fL (80.0-105.0); MEAN CORPUSCULAR HGB CONC 30.7 g/dl (31.0-37.0); MEAN PLATELET VOLUME 9.3 fl (7.0-11.0); MONO # 0.4 (0.1-0.6); MONO % 6.7 % (1.0-6.0); PLATELET COUNT 221 10^3/uL (120.0-450.0); RED CELL DISTRIBUTION WIDTH 16.6 % (11.5-14.5); WHITE BLOOD COUNT 6.5 10^3/ul (4.5-11.0)
[2017-05-01 08:02] LABS: ALB/GLOB RATIO 0.9 (1.1-1.8); BILIRUBIN,TOTAL 0.4 mg/dL (0.2-1.3); CALCIUM 8.8 mg/dL (8.4-10.5); POTASSIUM 4.2 mmol/L (3.6-5.0); TOTAL PROTEIN 7.3 g/dL (5.8-8.3)
[2017-05-01] MEDS: Insulin Reg-MEDIUM-Coverage SC SCH (08:30)
[2017-05-01] MEDS: Levothyroxine 25 MCG TAB PO SCH (10:16)
--- NOTE | 2017-05-01 12:32 | CP.PCM.PN ---
Subjective - Date & Time of Evaluation Date of Evaluation: 05/01/17 Time of Evaluation: 07:45 - Subjective Subjective: Patient seen and examined at bedside. Per nursing no acute events overnight. Patient still having intermittent epigastric pain. Rates 6/10. Tolerating clears. Reports having some nausea this morning but no vomiting. Had a BM this morning. Denies headaches, dizziness, cp, sob, urinary symptoms. Objective - Vital Signs/Intake and Output Vital Signs (last 24 hours): Temp Pulse Resp BP Pulse Ox 98.3 F 75 18 117/54 L 96 05/01/17 08:03 05/01/17 08:03 05/01/17 08:03 05/01/17 08:03 05/01/17 08:03 Intake and Output: 05/01/17 05/01/17 06:59 18:59 Intake Total 2520 Balance 2520 - Medications Medications: Current Medications Acetaminophen (Tylenol 325mg Tab) 650 mg PO Q6H PRN PRN Reason: Fever >100.4 F Albuterol/Ipratropium (Duoneb 3 Mg/0.5 Mg (3 Ml) Ud) 3 ml IH Q2H PRN PRN Reason: Shortness of Breath Last Admin: 04/29/17 20:50 Dose: 3 ml Aspirin (Ecotrin) 81 mg PO DAILY [facility] Last Admin: 05/01/17 10:17 Dose: 81 mg Atorvastatin Calcium (Lipitor) 10 mg PO DIN [facility] Last Admin: 04/30/17 17:54 Dose: 10 mg Ergocalciferol (Drisdol 50,000 Intl Units Cap) 1 cap PO QWK [facility] Heparin Sodium (Porcine) (Heparin) 5,000 units SC Q8 [facility] PRN Reason: Protocol Last Admin: 05/01/17 05:12 Dose: 5,000 units Home Med (Home Med) 1 unit PO DAILY [facility] Last Admin: 05/01/17 10:32 Dose: 1 unit Home Med (Home Med) 1 unit PO DAILY [facility] Last Admin: 05/01/17 10:32 Dose: 1 unit Hydromorphone HCl (Dilaudid) 0.5 mg IVP Q6H PRN PRN Reason: Pain, severe (8-10) Last Admin: 04/30/17 20:42 Dose: 0.5 mg Sodium Chloride (Sodium Chloride 0.9%) 1,000 mls @ 100 mls/hr IV .Q10H [facility] Last Admin: 04/30/17 17:57 Dose: 100 mls/hr Metronidazole (Flagyl) 500 mg in 100 mls @ 100 mls/hr IVPB Q8 [facility] PRN Reason: Protocol Last Admin: 05/01/17 05:12 Dose: 100 mls/hr Insulin Human Regular (Humulin R Med) 0 units SC ACHS [facility] PRN Reason: Protocol Last Admin: 05/01/17 08:30 Dose: Not Given Levothyroxine Sodium (Synthroid) 25 mcg PO DAILY [facility] Last Admin: 05/01/17 10:16 Dose: 25 mcg Miconazole (Monistat 7 Vag Suppository) 100 mg VG HS [facility] Last Admin: 04/30/17 21:53 Dose: 100 mg Pantoprazole Sodium (Protonix Inj) 40 mg IVP Q12 [facility] Last Admin: 05/01/17 10:16 Dose: 40 mg - Labs Labs: 05/01/17 07:10 05/01/17 07:10 PT 11.1 Seconds (9.9-11.8) 04/29/17 15:25 INR 1.03 (0.93-1.08) 04/29/17 15:25 APTT 29.8 Seconds (23.7-30.8) 04/29/17 15:25 - Constitutional Appears: Well, No Acute Distress - Head Exam Head Exam: ATRAUMATIC, NORMAL INSPECTION - Eye Exam Eye Exam: EOMI, Normal appearance Pupil Exam: NORMAL ACCOMODATION - ENT Exam ENT Exam: Mucous Membranes Moist - Neck Exam Neck Exam: Full ROM - Respiratory Exam Respiratory Exam: Clear to Ausculation Bilateral, NORMAL BREATHING PATTERN. absent: Rales, Rhonchi, Wheezes - Cardiovascular Exam Cardiovascular Exam: REGULAR RHYTHM, +S1, +S2 - GI/Abdominal Exam GI & Abdominal Exam: Soft, Tenderness, Normal Bowel Sounds - Extremities Exam Extremities Exam: Normal Capillary Refill, Normal Inspection. absent: Calf Tenderness - Back Exam Back Exam: NORMAL INSPECTION - Neurological Exam Neurological Exam: Alert, Awake, Oriented x3 - Psychiatric Exam Psychiatric exam: Normal Affect, Normal Mood - Skin Skin Exam: Normal Color, Warm Assessment and Plan - Assessment and Plan (Free Text) Assessment: Patient is a 56 year old female with past medical history of GERD, DM2, elevated cholesterol, esophagitis, and gastritis who presents with abdominal pain lasting one week Plan: 1. Lower abdominal pain, inflammatory bowel disease vs. colitis vs. adhesions - CT scan of abdomen showing no acute findings - GI consult, F/U recommendations - Continue IVF - CLD, will advance as tolerated - Zofran prn nausea - F/U stool studies - F/U urine, blood cx 2. Vaginitis - S/P hysterectomy, with R oopherectomy - Chronic history of foul smelling vaginal discharge, c/o white watery discharge - UA showing yeast, trace leuk est, ketones, proteins - Pelvic ultrasound - no acute findings - F/U Vaginal cultures - Continue Monistat Vaginal suppository - Continue IV Flagyl 3. Acute Kidney Injury, likely 2/2 dehydration - Cr 1.3 today, improving - FeNa 1.6%, suggesting Intrinsic etiology - Continue IVF 0.9% NS - F/U CMP tomorrow for evaluation 4. Hx of constipation -On linzess at home -S/P mag citrate -Patient reports having a BM yesterday and today -Continue to monitor 5. Hypercholesterolemia -Continue Lipitor -Continue ASA 6. DM2 - ISS - Accuchecks ACHS 7. Hx of GERD - Protonix 8. Hx of DVT - Called pharmacy to verify medications, patient has never filled prescription for Eliquis - F/U LE dopplers, final read - Continue Heparin 5000U Q8H 9. Hypothyroidism - Continue Synthroid 10. GI/DVT ppx - Protonix and Heparin
--- NOTE | 2017-05-01 13:57 | US ---
HISTORY: abdominal pain COMPARISON: None available. TECHNIQUE: Transabdominal pelvic ultrasound was performed evaluation of pelvic pain. FINDINGS: UTERUS: Uterus not identified due to prior hysterectomy as per patient. ENDOMETRIUM: Prior hysterectomy. CERVIX: Patient that is status post hysterectomy. The cervix not identified in this examination. RIGHT OVARY: Patient course prior right oophorectomy. There is no suspicious cyst or solid lesion seen in the right adnexal compartment. LEFT OVARY: Measures 1.9 x 1.9 x 2.1 cm. No definite cyst or solid lesion is seen related to the left ovary. No suspicious fluid collection is seen the left adnexal compartment. FREE FLUID: No significant free fluid noted. OTHER FINDINGS: None. IMPRESSION: Uterus and right ovary are not identified identified status post hysterectomy and right oophorectomy. The cervix is also not identified. Left ovary appears homogeneous in echotexture without discrete cystic or solid lesion associated. No fluid collection identified throughout the exam. Further characterization can be provided by transvaginal ultrasonography if clinically warranted.
[2017-05-01] MEDS: HYDROmorphone 0.5 mg/0.5 ml ISec IVP PRN (14:50)
--- NOTE | 2017-05-01 15:15 | CP.PCM.DIS ---
<Galilea Winslow - Last Filed: 05/01/17 16:42> Provider - Provider Date of Admission: 04/29/17 17:30 Attending physician: Mervin Salas MD Primary care physician: Zulma Mclean MD Time Spent in preparation of Discharge (in minutes): 33 Diagnosis - Discharge Diagnosis (1) Vaginitis Status: Acute (2) Abdominal pain Status: Acute Hospital Course - Lab Results Lab Results: Micro Results 04/29/17 20:30 Other: Please Indicate Trichomonas Culture - Final Most Recent Lab Values WBC 6.5 10^3/ul (4.5-11.0) 05/01/17 07:10 RBC 4.67 10^6/uL (3.5-6.1) 05/01/17 07:10 Hgb 11.2 gm/dL (12.0-16.0) L 05/01/17 07:10 Hct 36.5 % (36.0-48.0) 05/01/17 07:10 MCV 78.2 fL (80.0-105.0) L 05/01/17 07:10 MCH 24.0 pg (25.0-35.0) L 05/01/17 07:10 MCHC 30.7 g/dl (31.0-37.0) L 05/01/17 07:10 RDW 16.6 % (11.5-14.5) H 05/01/17 07:10 Plt Count 221 10^3/uL (120.0-450.0) 05/01/17 07:10 MPV 9.3 fl (7.0-11.0) 05/01/17 07:10 Gran % 63.7 % (50.0-68.0) 05/01/17 07:10 Lymph % (Auto) 26.5 % (22.0-35.0) 05/01/17 07:10 [place] % (Auto) 6.7 % (1.0-6.0) H 05/01/17 07:10 Eos % (Auto) 2.6 % (1.5-5.0) 05/01/17 07:10 Baso % (Auto) 0.5 % (0.0-3.0) 05/01/17 07:10 Gran # 4.12 (1.4-6.5) 05/01/17 07:10 Lymph # 1.7 (1.2-3.4) 05/01/17 07:10 [place] # 0.4 (0.1-0.6) 05/01/17 07:10 Eos # 0.2 (0.0-0.7) 05/01/17 07:10 Baso # 0.03 K/mm3 (0.0-2.0) 05/01/17 07:10 ESR 80 mm/hr (0.0-20.0) H 04/29/17 15:25 PT 11.1 Seconds (9.9-11.8) 04/29/17 15:25 INR 1.03 (0.93-1.08) 04/29/17 15: APTT 29.8 Seconds (23.7-30.8) 04/29/17 15:25 pO2 152 mm/Hg (30-55) H 04/30/17 12:20 VBG pH 7.25 (7.32-7.43) L 04/30/17 12:20 VBG pCO2 46.0 (40-60) 04/30/17 12:20 VBG HCO3 20.2 mmol/l (21-28) L 04/30/17 12:20 VBG Total CO2 21.6 mmol.L (22-28) L 04/30/17 12:20 VBG O2 Sat (Calc) 99.6 % (40-65) H 04/30/17 12:20 VBG Base Excess -7.0 mmol/L (0.0-2.0) L 04/30/17 12:20 VBG Potassium 5.3 mmol/L (3.6-5.2) H 04/30/17 12:20 Sodium 146.0 mmol/L (132-148) 04/30/17 12:20 Chloride 108.0 mmol/L (98-107) H 04/30/17 12:20 Glucose 117 mg/dl (65-105) H 04/30/17 12:20 Lactate 0.8 mmol/L (0.7-2.1) 04/30/17 12:20 FiO2 21.0 % 04/30/17 12:20 Sodium 140 mmol/L (132-148) 05/01/17 07:10 Potassium 4.2 mmol/L (3.6-5.0) 05/01/17 07:10 Chloride 113 mmol/L (98-107) H 05/01/17 07:10 Carbon Dioxide 20 mmol/L (21-33) L 05/01/17 07:10 Anion Gap 11 (10-20) 05/01/17 07:10 BUN 23 mg/dL (7-21) H 05/01/17 07:10 Creatinine 1.3 mg/dL (0.5-1.4) 05/01/17 07:10 Est GFR ( Amer) 52 05/01/17 07:10 Est GFR (Non-Af Amer) 43 05/01/17 07:10 POC Glucose (mg/dL) 125 mg/dL (65-110) H 05/01/17 11:19 Random Glucose 103 mg/dL (70-110) 05/01/17 07:10 Calcium 8.8 mg/dL (8.4-10.5) 05/01/17 07:10 Total Bilirubin 0.4 mg/dL (0.2-1.3) 05/01/17 07:10 AST 20 U/L (15-39) 05/01/17 07:10 ALT 16 U/L (7-56) 05/01/17 07:10 Alkaline Phosphatase 68 U/L (38-133) 05/01/17 07:10 Total Creatine Kinase 69 U/L (35-230) 04/29/17 15:25 Total Protein 7.3 g/dL (5.8-8.3) 05/01/17 07:10 Albumin 3.4 g/dL (3.0-4.8) 05/01/17 07:10 Globulin 3.9 gm/dL 05/01/17 07:10 Albumin/Globulin Ratio 0.9 (1.1-1.8) L 05/01/17 07:10 Lipase 92 U/L (23-300) 04/29/17 15:25 Venous Blood Potassium 5.3 mmol/L (3.6-5.2) H 04/30/17 12:20 Urine Color Yellow (YELLOW) 04/29/17 15:20 Urine Appearance Sl cloudy (CLEAR) 04/29/17 15:20 Urine pH 6.0 (4.7-8.0) 04/29/17 15:20 Ur Specific [place] 1.025 (1.005-1.035) 04/29/17 15:20 Urine Protein Trace mg/dL (<30 mg/dL) H 04/29/17 15:20 Urine Glucose (UA) Negative mg/dL (NEGATIVE) 04/29/17 15:20 Urine Ketones Trace mg/dL (NEGATIVE) H 04/29/17 15:20 Urine Blood Negative (NEGATIVE) 04/29/17 15:20 Urine Nitrate Negative (NEGATIVE) 04/29/17 15:20 Urine Bilirubin Negative (NEGATIVE) 04/29/17 15:20 Urine Urobilinogen 0.2 E.U./dL (<1 E.U./dL) 04/29/17 15:20 Ur Leukocyte Esterase Trace Sherri/uL (NEGATIVE) H 04/29/17 15:20 Urine RBC Negative /hpf (0-2) 04/29/17 15:20 Urine WBC 1 - 3 /hpf (0-6) 04/29/17 15:20 Ur Epithelial Cells 4 - 5 /hpf (0-5) 04/29/17 15:20 Urine Bacteria Mod (NEG) 04/29/17 15:20 Urine Other Uyeast 04/29/17 15:20 Ur Random Creatinine 98 mg/dL 04/30/17 15:41 Ur Random Sodium 138 meq/L 04/30/17 15:20 Stool Leukocytes, Qual Negative (NEGATIVE) 04/30/17 14:50 - Hospital Course Hospital Course: Patient is a 56 year old female with past medical history of GERD, DM2, Asthma, elevated cholesterol and DVT in 10/2016 who presents with one week history of abdominal pain and dark colored urine. The patient reports the abdominal pain is mid epigastric, dull, without radiation and has been getting progressively worse throughout the week. She denies diarrhea, fever, chest pain, shortness of breath, and vomiting. She was prescribed a week course of flagyl by her PCP for the presenting symptoms. The patient was treated with IV morphine and zofran for symptoms. Patients WBC was normal and her BUN/Cr was elevated. The patient states she has had appropriate fluid intake. Urinalysis showed presence of yeast , trace ketones, protein and leukoesterase. Patient denies any pain with urination or difficulty with urination. Patient was admitted for observation. CT abd/pelvis showed no acute findings. Patient was started on IV fluids and given zofran for nausea. GI was consulted and on the case. Patient has a history of constipation, was given Mag citrate with relief. During admission patient was found to have an acute kidney injury with Cr 1.6. FeNa 1.6% suggesting possible intrinsic cause. Patient was given fluids and Cr improved to 1.3. Blood cx negative x 2. Urine cx likely contaminated, patient denied any urinary symptoms. Per previous documentation, patient has a history of DVTs. LE Dopplers on this admission are negative, PMD informed and recommending she continue ASA. For vaginitis, patient was started on Flagyl 500mg IV and Monistat. Pelvic Ultrasound was performed and showed no acute findings. Vaginal cultures were collected and results are pending. Stool studies were ordered, however patient was unable to give sample prior to discharge. Recommending patient follow up with PMD to have studies completed. Patient was medically stable on day of discharge. Epigastric pain was improving. Patient tolerated regular diet. Prescriptions for Flagyl and Protonix were given. Patient instructed to continue Monistat OTC. Patient to follow up with PMD and BUSINESS MANAGER within 1 week. All questions and concerns were addressed. Discharge Exam - Head Exam Head Exam: ATRAUMATIC, NORMAL INSPECTION - Eye Exam Eye Exam: EOMI, Normal appearance Pupil Exam: NORMAL ACCOMODATION - ENT Exam ENT Exam: Mucous Membranes Moist - Neck Exam Neck exam: Full Rom - Respiratory Exam Respiratory Exam: Clear to PA & Lateral, NORMAL BREATHING PATTERN, UNREMARKABLE. absent: Rales, Rhonchi, Wheezes, Respiratory Distress - Cardiovascular Exam Cardiovascular Exam: REGULAR RHYTHM, +S1, +S2 - GI/Abdominal Exam GI & Abdominal Exam: Normal Bowel Sounds, Soft. absent: Firm, Guarding, Rebound , Rigid Additional comments: mild tenderness in epigastric region - Extremities Exam Extremities exam: normal inspection, pedal pulses present - Neurological Exam Neurological exam: Alert, CN II-XII Intact, Oriented x3 - Psychiatric Exam Psychiatric exam: Normal Affect, Normal Mood - Skin Skin Exam: Normal Color, Warm Discharge Plan - Discharge Medications Prescriptions: Metronidazole [Flagyl] 500 mg PO BID #10 tablet Pantoprazole [Protonix Inj] 40 mg PO DAILY #30 - Follow Up Plan Condition: STABLE Disposition: HOME/ ROUTINE Instructions: Miconazole (Into the vagina), Metronidazole (By mouth), Pantoprazole (By mouth), Heart Healthy Diet (DC), Vaginitis (GEN), Acute Abdominal Pain (DC) Additional Instructions: Patient is clear for discharge home. Patient to continue Flagyl 500mg BID x 5 days, Protonix 40mg PO daily. OTC Monistat. F/U with PMD and BUSINESS MANAGER within 1 week. Referrals: Zulma Mclean MD [Primary Care Provider] - <Mervin Salas - Last Filed: 05/01/17 17:19> Provider - Provider Date of Admission: 04/29/17 17:30 Attending physician: Mervin Salas MD Primary care physician: Zulma Mclean MD Time Spent in preparation of Discharge (in minutes): 35 Hospital Course - Lab Results Lab Results: Micro Results 04/29/17 20:30 Other: Please Indicate Trichomonas Culture - Final Most Recent Lab Values WBC 6.5 10^3/ul (4.5-11.0) 05/01/17 07:10 RBC 4.67 10^6/uL (3.5-6.1) 05/01/17 07:10 Hgb 11.2 gm/dL (12.0-16.0) L 05/01/17 07:10 Hct 36.5 % (36.0-48.0) 05/01/17 07:10 MCV 78.2 fL (80.0-105.0) L 05/01/17 07:10 MCH 24.0 pg (25.0-35.0) L 05/01/17 07:10 MCHC 30.7 g/dl (31.0-37.0) L 05/01/17 07:10 RDW 16.6 % (11.5-14.5) H 05/01/17 07:10 Plt Count 221 10^3/uL (120.0-450.0) 05/01/17 07:10 MPV 9.3 fl (7.0-11.0) 05/01/17 07:10 Gran % 63.7 % (50.0-68.0) 05/01/17 07:10 Lymph % (Auto) 26.5 % (22.0-35.0) 05/01/17 07:10 Dup[place] % (Auto) 6.7 % (1.0-6.0) H 05/01/17 07:10 Eos % (Auto) 2.6 % (1.5-5.0) 05/01/17 07:10 Baso % (Auto) 0.5 % (0.0-3.0) 05/01/17 07:10 Gran # 4.12 (1.4-6.5) 05/01/17 07:10 Lymph # 1.7 (1.2-3.4) 05/01/17 07:10 [place] # 0.4 (0.1-0.6) 05/01/17 07:10 Eos # 0.2 (0.0-0.7) 05/01/17 07:10 Baso # 0.03 K/mm3 (0.0-2.0) 05/01/17 07:10 ESR 80 mm/hr (0.0-20.0) H 04/29/17 15:25 PT 11.1 Seconds (9.9-11.8) 04/29/17 15:25 INR 1.03 (0.93-1.08) 04/29/17 15:25 APTT 29.8 Seconds (23.7-30.8) 04/29/17 15:25 pO2 152 mm/Hg (30-55) H 04/30/17 12:20 VBG pH 7.25 (7.32-7.43) L 04/30/17 12:20 VBG pCO2 46.0 (40-60) 04/30/17 12:20 VBG HCO3 20.2 mmol/l (21-28) L 04/30/17 12:20 VBG Total CO2 21.6 mmol.L (22-28) L 04/30/17 12:20 VBG O2 Sat (Calc) 99.6 % (40-65) H 04/30/17 12:20 VBG Base Excess -7.0 mmol/L (0.0-2.0) L 04/30/17 12:20 VBG Potassium 5.3 mmol/L (3.6-5.2) H 04/30/17 12:20 Sodium 146.0 mmol/L (132-148) 04/30/17 12:20 Chloride 108.0 mmol/L (98-107) H 04/30/17 12:20 Glucose 117 mg/dl (65-105) H 04/30/17 12:20 Lactate 0.8 mmol/L (0.7-2.1) 04/30/17 12:20 FiO2 21.0 % 04/30/17 12:20 Sodium 140 mmol/L (132-148) 05/01/17 07:10 Potassium 4.2 mmol/L (3.6-5.0) 05/01/17 07:10 Chloride 113 mmol/L (98-107) H 05/01/17 07:10 Carbon Dioxide 20 mmol/L (21-33) L 05/01/17 07:10 Anion Gap 11 (10-20) 05/01/17 07:10 BUN 23 mg/dL (7-21) H 05/01/17 07:10 Creatinine 1.3 mg/dL (0.5-1.4) 05/01/17 07:10 Est GFR ( Amer) 52 05/01/17 07:10 Est GFR (Non-Af Amer) 43 05/01/17 07:10 POC Glucose (mg/dL) 86 mg/dL (65-110) 05/01/17 15:57 Random Glucose 103 mg/dL (70-110) 05/01/17 07:10 Calcium 8.8 mg/dL (8.4-10.5) 05/01/17 07:10 Total Bilirubin 0.4 mg/dL (0.2-1.3) 05/01/17 07:10 AST 20 U/L (15-39) 05/01/17 07:10 ALT 16 U/L (7-56) 05/01/17 07:10 Alkaline Phosphatase 68 U/L (38-133) 05/01/17 07:10 Total Creatine Kinase 69 U/L (35-230) 04/29/17 15:25 Total Protein 7.3 g/dL (5.8-8.3) 05/01/17 07:10 Albumin 3.4 g/dL (3.0-4.8) 05/01/17 07:10 Globulin 3.9 gm/dL 05/01/17 07:10 Albumin/Globulin Ratio 0.9 (1.1-1.8) L 05/01/17 07:10 Lipase 92 U/L (23-300) 04/29/17 15:25 Venous Blood Potassium 5.3 mmol/L (3.6-5.2) H 04/30/17 12:20 Urine Color Yellow (YELLOW) 04/29/17 15:20 Urine Appearance Sl cloudy (CLEAR) 04/29/17 15:20 Urine pH 6.0 (4.7-8.0) 04/29/17 15:20 Ur Specific [place] 1.025 (1.005-1.035) 04/29/17 15:20 Urine Protein Trace mg/dL (<30 mg/dL) H 04/29/17 15:20 Urine Glucose (UA) Negative mg/dL (NEGATIVE) 04/29/17 15:20 Urine Ketones Trace mg/dL (NEGATIVE) H 04/29/17 15:20 Urine Blood Negative (NEGATIVE) 04/29/17 15:20 Urine Nitrate Negative (NEGATIVE) 04/29/17 15:20 Urine Bilirubin Negative (NEGATIVE) 04/29/17 15:20 Urine Urobilinogen 0.2 E.U./dL (<1 E.U./dL) 04/29/17 15:20 Ur Leukocyte Esterase Trace Sherri/uL (NEGATIVE) H 04/29/17 15:20 Urine RBC Negative /hpf (0-2) 04/29/17 15:20 Urine WBC 1 - 3 /hpf (0-6) 04/29/17 15:20 Ur Epithelial Cells 4 - 5 /hpf (0-5) 04/29/17 15:20 Urine Bacteria Mod (NEG) 04/29/17 15:20 Urine Other Uyeast 04/29/17 15:20 Ur Random Creatinine 98 mg/dL 04/30/17 15:41 Ur Random Sodium 138 meq/L 04/30/17 15:20 Stool Leukocytes, Qual Negative (NEGATIVE) 04/30/17 14:50 Attending/Attestation - Attestation I have personally seen and examined this patient.: Yes I have fully participated in the care of the patient.: Yes I have reviewed all pertinent clinical information, including history, physical exam and plan: Yes Notes (Text): 05/01/17 17:15 56 year old female who was admitted with lower abdominal pain and possible vaginitis. CT abd/pelvis did not finding any acute findings. She was seen by GI. She received magnesium citrate for constipation. She was also on flagyl and monistat. Her symptoms improved and her diet was advanced which she tolerated. She had mild JACINTO which improved with IVF. She reported history of DVT in the past but repeat doppler was negative. Overall patient's symptoms improved. She is discharged home to follow up with pmd. Hospital course was discussed with Dr. Mclean. Follow up with surgical garment assembly supervisor. Mervin Salas MD Hospitalist.
--- NOTE | 2017-05-01 17:09 | US ---
HISTORY: Leg pain and swelling. Evaluate for DVT PHYSICIAN(S): Bobby Johnston MD. TECHNIQUE: Duplex sonography and color-flow Doppler with graded compression were used to evaluate the deep venous systems of both lower extremities. The exam is somewhat limited by edema and body habitus. FINDINGS: The visualized deep venous systems of both lower extremities are sonographically normal and compressible. Normal wave forms and augmentation are seen. There is no sonographic evidence for deep venous thrombosis in the visualized segments of both lower extremities. IMPRESSION: No sonographic evidence for deep venous thrombosis in the visualized segments of both lower extremities.
[2017-05-01 18:01] VITALS: BP 141/95; PULSE 70; RESP 18; TEMP 98.1; O2SAT 97
[2017-05-06] MEDS ORDERED: Ergocalciferol 50,000 Intl Units Cap PO SCH (10:00)
== END 2017-05-01 18:25 | disposition home or self-care (01) ==
LOC: ED 14:36 → ERH 17:30 → 5RNO 18:37
PROVIDERS: ADMIT Internal Medicine; ATTEND Internal Medicine
DX: N76.0 Acute vaginitis (principal); R10.9 Unspecified abdominal pain; E03.9 Hypothyroidism, unspecified; E11.9 Type 2 diabetes mellitus without complications; E78.00 Pure hypercholesterolemia, unspecified; E78.5 Hyperlipidemia, unspecified; I10 Essential (primary) hypertension; J45.909 Unspecified asthma, uncomplicated; K21.0 Gastro-esophageal reflux disease with esophagitis; K57.90 Diverticulosis of intestine, part unspecified, without perforation or abscess without bleeding; K59.00 Constipation, unspecified; N17.9 Acute kidney failure, unspecified; Z79.82 Long term (current) use of aspirin; Z79.899 Other long term (current) drug therapy; Z86.718 Personal history of other venous thrombosis and embolism; Z90.49 Acquired absence of other specified parts of digestive tract; Z90.710 Acquired absence of both cervix and uterus; Z98.42 Cataract extraction status, left eye; Z98.41 Cataract extraction status, right eye; D64.9 Anemia, unspecified; K64.9 Unspecified hemorrhoids; E66.9 Obesity, unspecified; Z91.018 Allergy to other foods
CPT/HCPCS: 36415; 71010; 74176; 76856; 80053; 81001; 82550; 82570; 82803; 82948; 83690; 84300; 85025; 85610; 85651; 85730; 87040; 87086; 89055; 93005; 93970; 94640; 96365; 96372; 96375; 96376; 99285; C9113; G0378; J0696; J1170; J1644; J1885; J2270; J2405; J7040

== ENCOUNTER 2018-03-05 21:58 | Observation (INO) | payer MEDICARE, MEDICAID ==
[2018-03-05 21:58] VITALS: BMI 37.8
[2018-03-05] MEDS ORDERED: Sodium Chloride 0.9% 1,000 ML IV STA (23:09)
[2018-03-05 23:35] LABS: BASO # 0.03 K/mm3 (0.0-2.0); BASO % 0.2 % (0.0-3.0); EOS % 0.3 % (1.5-5.0); GRAN # 11.4 (1.4-6.5); GRAN % 85.4 % (50.0-68.0); HEMOGLOBIN 11.6 g/dL (12.0-16.0); LYMPH # 1.5 (1.2-3.4); LYMPH % 11.5 % (22.0-35.0); MEAN CORPUSCULAR HEMOGLOBIN 24.1 pg (25.0-35.0); MEAN CORPUSCULAR HGB CONC 31.1 g/dl (31.0-37.0); MEAN PLATELET VOLUME 8.9 fl (7.0-11.0); MONO # 0.4 (0.1-0.6); MONO % 2.6 % (1.0-6.0); RBC 4.81 10^6/uL (3.5-6.1); RED CELL DISTRIBUTION WIDTH 17.1 % (11.5-14.5); WHITE BLOOD COUNT 13.4 10^3/ul (4.5-11.0)
[2018-03-05 23:43] LABS: ALB/GLOB RATIO 1.2 (1.1-1.8); ALBUMIN 4.1 g/dL (3.0-4.8); CALCIUM 9.4 mg/dL (8.4-10.5)
[2018-03-05 23:45] LABS: MEAN CELL VOLUME 77.5 fl (80.0-105.0)
--- NOTE | 2018-03-06 01:45 | ED PDOC ---
Arrival/HPI - General Chief Complaint: Lower Extremity Problem/Injury Time Seen by Provider: 03/05/18 23:08 Historian: Patient - History of Present Illness Narrative History of Present Illness (Text): 03/06/18 01:41 57-year-old female presents today with worsening bilateral knee pain. Patient states she has chronic arthritis in the knees and was seen by an orthopedist today and had cortisone injections into her knees bilaterally. Patient states around 5 PM the pain in the knees became so severe that she was unable to ambulate. Patient states she took her medications for pain at home without any improvement in her symptoms. Patient denies fevers or chills. Denies calf pain. Denies numbness weakness or tingling in the extremity. No other complaints. Past Medical History - Provider Review Nursing Documentation Reviewed: Yes - Travel History Have you recently traveled outside [place] w/in the past 3 mons?: No - Infectious Disease Hx of Infectious Diseases: None - Tetanus Immunization Tetanus Immunization: Unknown - Cardiac Hx Hypertension: Yes Hx Pacemaker: No - Pulmonary Hx Respiratory Disorders: Yes Hx Asthma: Yes - Neurological Hx Neurological Disorder: No - HEENT Hx HEENT Disorder: Yes Hx Cataracts: Yes (b/l sx) - Renal Hx Renal Disorder: No - Endocrine/Metabolic Hx Endocrine Disorders: Yes Hx Diabetes Mellitus Type 2: Yes (NIDDM) Hx Hypothyroidism: Yes - Hematological/Oncological Hx Blood Disorders: Yes Hx Anemia: Yes - Integumentary Hx Dermatological Disorder: No - Musculoskeletal/Rheumatological Hx Musculoskeletal Disorders: Yes (RA) Hx Falls: No - Gastrointestinal Hx Gastrointestinal Disorders: Yes (hemorrhoids, constipation, obese) Hx Gastroesophageal Reflux: Yes - Genitourinary/Gynecological Hx Genitourinary Disorders: No - Psychiatric Hx Emotional Abuse: No Hx Physical Abuse: No Hx Substance Use: No - Surgical History Hx Cholecystectomy: Yes Hx Hysterectomy: Yes Hx Orthopedic Surgery: Yes (b/l knee sx) Other/Comment: b/l arm sx for swelling, - Anesthesia Hx Anesthesia Reactions: Yes (PALPITATIONS) Hx Malignant Hyperthermia: No - Suicidal Assessment Feels Threatened In Home Enviroment: No Family/Social History - Physician Review Nursing Documentation Reviewed: Yes Family/Social History: Unknown Family HX Smoking Status: Never Smoked Hx Alcohol Use: No Hx Substance Use: No Hx Substance Use Treatment: No Allergies/Home Meds Allergies/Adverse Reactions: Allergies apple Allergy (Verified 03/05/18 22:06) ITCHING/NASAL,THROAT CONGESTION Home Medications: Home Meds Medication Instructions Recorded Confirmed Allopurinol [Zyloprim] 100 mg PO DAILY 04/29/17 03/05/18 Aspirin [Adult Low Dose Aspirin EC] 81 mg PO DAILY 04/29/17 03/05/18 Bisoprolol/HCTZ [Ziac 5-6.25 mg] 1 tab PO DAILY 04/29/17 03/05/18 Ergocalciferol (Vitamin D2) 50,000 unit PO QWK 04/29/17 03/05/18 [Vitamin D2] Levothyroxine [Synthroid] 25 mcg PO DAILY 04/29/17 03/05/18 Linaclotide [Linzess] 290 mcg PO DAILY 04/29/17 03/05/18 Methenamine Hippurate 1 gm PO DAILY 04/29/17 03/05/18 Pravastatin Sodium [Pravachol] 40 mg PO DAILY 04/29/17 03/05/18 SITagliptin [Januvia] 100 mg PO DAILY 04/29/17 03/05/18 Review of Systems - Review of Systems Constitutional: absent: Fatigue, Fevers Respiratory: absent: SOB, Cough Cardiovascular: absent: Chest Pain, Palpitations Gastrointestinal: absent: Abdominal Pain, Nausea, Vomiting Genitourinary Female: absent: Dysuria Musculoskeletal: Arthralgias. absent: Back Pain, Neck Pain Skin: absent: Rash, Pruritis Neurological: absent: Headache, Dizziness Psychiatric: absent: Anxiety, Depression, Suicidal Ideation Physical Exam Vital Signs Reviewed: Yes Vital Signs Temp Pulse Resp BP Pulse Ox 03/05/18 22:58 98.5 F 80 18 99/61 L 99 03/05/18 22:15 98.4 F 96 H 18 112/59 L 99 Temperature: Afebrile Blood Pressure: Normal Pulse: Regular Respiratory Rate: Normal Appearance: Positive for: Well-Appearing, Non-Toxic, Comfortable Pain Distress: Mild Mental Status: Positive for: Alert and Oriented X 3 - Systems Exam Head: Present: Atraumatic Mouth: Present: Moist Mucous Membranes Respiratory/Chest: Present: Clear to Auscultation Cardiovascular: Present: Regular Rate and Rhythm Back: Present: Normal Inspection Upper Extremity: Present: Normal ROM Lower Extremity: Present: NORMAL PULSES, Tenderness (bilateral knee tenderness; + minimal edema, no erythema; no ecchymosis; limited rom of knees bilateraly, no calf tenderness, sensation and distal pulses intact. ), Swelling, Neurovascularly Intact, Capillary Refill < 2 s. No: CALF TENDERNESS, Normal ROM , Erythema, Deformity Neurological: Present: GCS=15, Motor Func Grossly Intact, Normal Sensory Function Skin: Present: Warm, Dry, Normal Color. No: Rashes Psychiatric: Present: Alert, Oriented x 3 Medical Decision Making ED Course and Treatment: 03/06/18 01:45 57yr old female with severe b/l knee pain. cbc: cmp: [id number] pt given toradol for pain. pt without improvement in pain; continues to be unable to ambulate. case discussed with dr. interiano; will admit observational status for inability to ambulate with severe knee pain. lives alone. fall risk. impression; knee pain, inability to ambulate admit observational status to med/surg - Lab Interpretations Lab Results: 03/05/18 23:24 03/05/18 23:24 Lab Results 03/05/18 23:24: WBC 13.4 H D, RBC 4.81, Hgb 11.6 L, Hct 37.3, MCV 77.5 L D, MCH 24.1 L, MCHC 31.1, RDW 17.1 H, Plt Count 239, MPV 8.9, Gran % 85.4 H, Lymph % ( Auto) 11.5 L, Simpson % (Auto) 2.6, Eos % (Auto) 0.3 L, Baso % (Auto) 0.2, Gran # 11.40 H, Lymph # (Auto) 1.5, Simpson # (Auto) 0.4, Eos # (Auto) 0.0, Baso # (Auto) 0.03 03/05/18 23:24: Sodium 143, Potassium 4.9, Chloride 111 H, Carbon Dioxide 21, Anion Gap 16, BUN 26 H, Creatinine 1.4 H, Est GFR ( Amer) 47, Est GFR ( Non-Af Amer) 39, Random Glucose 186 H, Calcium 9.4, Total Bilirubin 0.3, AST 22 , ALT 16, Alkaline Phosphatase 79, Total Protein 7.6, Albumin 4.1, Globulin 3.5 , Albumin/Globulin Ratio 1.2 - RAD Interpretation Radiology Orders: 03/05/18 23:08 CHEST PORTABLE [RAD] Stat - Medication Orders Current Medication Orders: Discontinued Medications Sodium Chloride (Sodium Chloride 0.9%) 1,000 mls @ 999 mls/hr IV .Q1H1M STA Stop: 03/06/18 00:09 Last Admin: 03/05/18 23:42 Dose: 999 mls/hr eMAR Start Stop Document 03/05/18 23:42 SS (Rec: 03/05/18 23:42 SS [id number]) Intravenous Solution Start Date 03/05/18 Start Time 23:42 End Date 03/06/18 End time 00:42 Total Infusion Time 60 Ketorolac Tromethamine (Toradol) 30 mg IVP STAT STA Stop: 03/05/18 23:10 Last Admin: 03/05/18 23:43 Dose: 30 mg MAR Pain Assessment Document 03/05/18 23:43 SS (Rec: 03/05/18 23:43 SS [id number]) Pain Reassessment Is this a pain reassessment? No Sleep Is patient sleeping during reassessment? No Presence of Pain Presence of Pain Yes Pain Scale Used Pain Scale Used Numeric Location Left, Right or Bilateral Bilateral Pain Location Body Site Knee IVP Administration Document 03/05/18 23:43 SS (Rec: 03/05/18 23:43 SS [id number]) Charges for Administration # of IVP Administrations 1 Disposition/Present on Arrival - Present on Arrival Any Indicators Present on Arrival: No History of DVT/PE: No History of Uncontrolled Diabetes: No Urinary Catheter: No History of Decub. Ulcer: No History Surgical Site Infection Following: None - Disposition Have Diagnosis and Disposition been Completed?: Yes Diagnosis: Knee pain, Inability to ambulate due to knee Disposition: HOSPITALIZED Disposition Time: 01:52 Patient Plan: Observation Patient Problems: Current Active Problems Problem Status Onset Inability to ambulate due to knee Acute Knee pain Acute Condition: FAIR Forms: [employer] (Hungarian)
[2018-03-06 05:02] VITALS: RESP 20
[2018-03-06 05:53] LABS: URINE BILIRUBIN NEGATIVE (NEGATIVE); URINE BLOOD NEGATIVE (NEGATIVE); URINE GLUCOSE (UA) NEGATIVE (NEGATIVE); URINE LEUKOCYTE ESTERASE NEGATIVE Leu/uL (NEGATIVE); URINE PROTEIN NEGATIVE mg/dL (<30 mg/dL); URINE UROBILINOGEN 0.2 E.U./dL (<1 E.U./dL)
[2018-03-06 05:54] LABS: URINE APPEARANCE CLEAR (CLEAR); URINE COLOR YELLOW (YELLOW)
[2018-03-06] MEDS ORDERED: Ergocalciferol 50,000 Intl Units Cap PO SCH (10:00)
[2018-03-06] MEDS ORDERED: Insulin Detemir 100 units/ml Vial (Levemir) SC SCH (10:00)
[2018-03-06] MEDS: Levothyroxine 25 MCG TAB PO SCH (10:18)
[2018-03-06] MEDS: Bisoprolol/Hctz [Ziac 5-6.25 Mg] (HOME MED) PO SCH (10:18)
[2018-03-06] MEDS: METHENAMINE HIPPURATE 1 GM PO SCH (10:18)
[2018-03-06] MEDS: Non Formulary Medication (Linaclotide [Linzess] 290 MCG) PO SCH (10:18)
--- NOTE | 2018-03-06 10:59 | RAD ---
HISTORY: inability to ambulate COMPARISON: 04/29/2017 FINDINGS: LUNGS: No active pulmonary disease. PLEURA: No significant pleural effusion identified, no pneumothorax apparent. CARDIOVASCULAR: Normal. OSSEOUS STRUCTURES: No significant abnormalities. VISUALIZED UPPER ABDOMEN: Normal. OTHER FINDINGS: None. IMPRESSION: No active disease.
--- NOTE | 2018-03-06 11:07 | CP.PCM.CON ---
History of Present Illness - History of Present Illness History of Present Illness: Orthopedic consultation Dr. Ospina 57F complains of intractable bilateral knee pain left >>>right after bilateral steroid injection in office of Dr. Ospina yesterday. She has known history of bilateral knee arthritis. SHe says initially she felt fine, but the pain and burning became worse after a few hours and she was unable to walk due to the pain. She says her knees are better today, her right knee is much better, but her left knee is still causing her a lot of pain. This is the first time she had steroid injections for knee. She denies fever/chills/numbness/tingling/CP/ SOB/dizziness. Denies any recent trauma or fall. Review of Systems - Review of Systems All systems: reviewed and no additional remarkable complaints except - Constitutional Constitutional: As Per HPI - Cardiovascular Cardiovascular: As Per HPI - Respiratory Respiratory: As Per HPI - Gastrointestinal Additional comments: denies n/v - Genitourinary Additional comments: no dysuria - Musculoskeletal Musculoskeletal: As Per HPI - Integumentary Additional comments: no redness or swelling - Neurological Neurological: As Per HPI - Hematologic/Lymphatic Hematologic: absent: As Per HPI, Easy Bleeding, Easy Bruising, Lymphadenopathy, Other Past Patient History - Infectious Disease Hx of Infectious Diseases: None - Tetanus Immunizations Tetanus Immunization: Unknown - Past Medical History & Family History Past Medical History?: Yes Past Family History: Reviewed and not pertinent - Past Social History Smoking Status: Never Smoked - CARDIAC Hx Hypertension: Yes Hx Pacemaker: No - PULMONARY Hx Respiratory Disorders: Yes Hx Asthma: Yes - NEUROLOGICAL Hx Neurological Disorder: No - HEENT Hx HEENT Problems: Yes Hx Cataracts: Yes (b/l sx) - RENAL Hx Chronic Kidney Disease: No - ENDOCRINE/METABOLIC Hx Endocrine Disorders: Yes Hx Diabetes Mellitus Type 2: Yes (NIDDM) Hx Hypothyroidism: Yes - HEMATOLOGICAL/ONCOLOGICAL Hx Blood Disorders: Yes Hx Anemia: Yes - INTEGUMENTARY Hx Dermatological Problems: No - MUSCULOSKELETAL/RHEUMATOLOGICAL Hx Musculoskeletal Disorders: Yes (RA) Hx Falls: No - GASTROINTESTINAL Hx Gastrointestinal Disorders: Yes (hemorrhoids, constipation, obese) Hx Gastroesophageal Reflux: Yes - GENITOURINARY/GYNECOLOGICAL Hx Genitourinary Disorders: No - PSYCHIATRIC Hx Emotional Abuse: No Hx Physical Abuse: No Hx Substance Use: No - SURGICAL HISTORY Hx Cholecystectomy: Yes Hx Hysterectomy: Yes Hx Orthopedic Surgery: Yes (b/l knee sx) Other/Comment: b/l arm sx for swelling, - ANESTHESIA Hx Anesthesia Reactions: Yes (PALPITATIONS) Hx Malignant Hyperthermia: No Meds Allergies/Adverse Reactions: Allergies Allergy/AdvReac Type Severity Reaction Status Date / Time apple Allergy ITCHING/NASAL,THROAT Verified 03/05/18 22:06 CONGESTION - Medications Medications: Current Medications Allopurinol (Zyloprim) 100 mg PO DAILY [facility] Last Admin: 03/06/18 10:18 Dose: 100 mg Aspirin (Ecotrin) 81 mg PO DAILY [facility] Last Admin: 03/06/18 10:18 Dose: 81 mg Atorvastatin Calcium (Lipitor) 10 mg PO DIN [facility] Ergocalciferol (Drisdol 50,000 Intl Units Cap) 1 cap PO QWK [facility] Last Admin: 03/06/18 10:18 Dose: 1 cap Insulin Detemir (Levemir) 10 unit SC BID [facility] Insulin Human Regular (Humulin R Low) 0 units SC ACHS [facility] PRN Reason: Protocol Levothyroxine Sodium (Synthroid) 25 mcg PO DAILY [facility] Last Admin: 03/06/18 10:18 Dose: 25 mcg Bisoprolol/Hctz [ Ziac 5-6.25 Mg] ( Home Med) 1 tab PO DAILY [facility] Last Admin: 03/06/18 10:18 Dose: Not Given Non-Formulary Medication (Linaclotide [Linzess]) 290 mcg PO DAILY [facility] Last Admin: 03/06/18 10:18 Dose: Not Given Non-Formulary Medication (Methenamine Hippurate [Methenamine Hippurate]) 1 gm PO DAILY [facility] Last Admin: 03/06/18 10:18 Dose: Not Given Pantoprazole Sodium (Protonix Inj) 40 mg IV DAILY [facility] Last Admin: 03/06/18 10:17 Dose: 40 mg Sitagliptin Phosphate (Januvia) 50 mg PO DAILY [facility] Last Admin: 03/06/18 10:18 Dose: 50 mg Physical Exam - Constitutional Appears: Well, No Acute Distress - Head Exam Head Exam: ATRAUMATIC - Neck Exam Neck exam: Positive for: Full Rom - Cardiovascular Exam Additional comments: +DP/PT pulses - Expanded Lower Extremities Exam Left Knee exam: tenderness (slightly warm, well healed arthroscopy incisions (10 years ago approx), no erythema, pain with AROM 0-40, unable to accurately assess effusion clinically, no large effusion noted) Ankle exam: FULL ROM Right Knee exam: full ROM, tenderness, normal inspection (no swelling, no erythema, minimal pain with AROM of knee, calves soft NT neg homans bilaterally) - Neurological Exam Neurological exam: Alert, Oriented x3 - Psychiatric Exam Psychiatric exam: Normal Affect, Normal Mood - Skin Skin Exam: Dry, Intact, Normal Color, Warm Results - Vital Signs Recent Vital Signs: Last Vital Signs Temp 96.6 F L 03/06/18 04:33 Pulse 65 03/06/18 04:33 Resp 20 03/06/18 04:33 BP 96/54 L 03/06/18 04:33 Pulse Ox 99 03/06/18 02:57 - Labs Result Diagrams: 03/06/18 11:30 03/06/18 11:30 Labs: Laboratory Results - last 24 hr 03/06/18 05:00 Urine Color Yellow Urine Appearance Clear Urine pH 6.0 Ur Specific [place] 1.025 Urine Protein Negative Urine Glucose (UA) Negative Urine Ketones Negative Urine Blood Negative Urine Nitrate Negative Urine Bilirubin Negative Urine Urobilinogen 0.2 Ur Leukocyte Esterase Negative - Impressions Impression: atient Name / ID : ZACHARY MORGAN / [id number] Exam Date : 03/06/2018 11:48:36 ( Approved ) Study Comment : Sex / Age : F / 57Y Creator : Stan Pittman MD Dictator : Stan Pittman MD Community Living Instructor : Visual Merchandising Coordinator : Stan Pittman MD Approver2 : Report Date : 03/06/2018 12:05:31 My Comment : PROCEDURE: Bilateral Knee Radiographs. HISTORY: rule out joint effusion COMPARISON: None. FINDINGS: BONES: Right Knee: Normal. No fracture. Left Knee: Normal. No fracture. JOINTS: Right Knee: Normal. No osteoarthritis. Left knee: There is joint space narrowing in the medial compartment SOFT TISSUES: Right Knee: Normal. Left Knee: Normal. JOINT EFFUSION: Right Knee: None. Left Knee: None. OTHER FINDINGS: Degenerative changes are seen in the patellofemoral joints IMPRESSION: Left knee. Joint space narrowing in the medial compartment. Bilateral patellofemoral degeneration Accession No. : [id number] Patient Name / ID : ZACHARY Jacinto / [id number] Exam Date : 02/05/2018 14:42:03 ( Approved ) Study Comment : Sex / Age : F / 57Y Creator : Jeremy Covington MD Dictator : Jeremy Covington MD Community Living Instructor : Visual Merchandising Coordinator : Jeremy Covington MD Approver2 : Report Date : 02/05/2018 16:24:55 My Comment : MRI left knee History: Knee pain. Comparison: None available. Technique: Multi-echo multiplanar sequences were performed through the left knee without the use of intravenous contrast. Findings: Thinning and attenuation with increased signal seen within the distal attachment of the anterior cruciate ligament suggestive for a moderate grade sprain with some partial interstitial delamination and/or partial interstitial tearing. Moderate grade sprain of the proximal attachment the posterior cruciate ligament. Complex tear involving the body and posterior horn of the medial meniscus with meniscal extrusion of a large portion of the body of the medial meniscus. Globular increased signal seen within the anterior root and horn of the lateral meniscus extending to the articular surface suggestive for a tear. Moderate grade sprain of the medial collateral ligament. Lateral collateral ligament complex structures are preserved. Mild distal quadriceps tendinopathy. Patellar tendon is preserved. Prominent cartilage thinning and loss overlying the lateral patellar facet extending to the subchondral bone with signal change in the adjacent marrow suggestive for osteochondral change. Moderate cartilage thinning and loss involving the medial compartment of the femorotibial joint space with signal change in the adjacent marrow of the mid medial femoral condyle and mid medial proximal tibia suggestive for osteochondral change. Tricompartmental osteophytosis. Mild cartilage thinning and loss overlying the anterior aspect of the lateral femoral condyle. Small suprapatellar joint effusion. Small posterior Sue cyst. At the posterior aspect of the distal femur, approximating the posterior cortex , there is a lobulated focal area of fluid signal intensity measuring 1.8 centimeters which may represent a synovial cyst and or ganglia. More distally, an additional 9 millimeter rounded foci of fluid intensity signal demonstrating decreased T1 signal and increased STIR signal may also represent a small synovial cyst and or ganglia. Moderate grade strains of the medial and lateral patellar retinaculum. Heterogeneity of the visualized marrow with patchy decreased T1 signal suggestive for hematopoietic marrow reconversion. Impression: 1. Thinning and attenuation with increased signal seen within the distal attachment of the anterior cruciate ligament suggestive for a moderate grade sprain with some partial interstitial delamination and/or partial interstitial tearing. 2. Moderate grade sprain of the proximal attachment the posterior cruciate ligament. 3. Complex tear involving the body and posterior horn of the medial meniscus with meniscal extrusion of a large portion of the body of the medial meniscus. 4. Globular increased signal seen within the anterior root and horn of the lateral meniscus extending to the articular surface suggestive for a tear. 5. Moderate grade sprain of the medial collateral ligament. 6. Mild distal quadriceps tendinopathy. 7. Prominent cartilage thinning and loss overlying the lateral patellar facet extending to the subchondral bone with signal change in the adjacent marrow suggestive for osteochondral change. 8. Moderate cartilage thinning and loss involving the medial compartment of the femorotibial joint space with signal change in the adjacent marrow of the mid medial femoral condyle and mid medial proximal tibia suggestive for osteochondral change. Tricompartmental osteophytosis. 9. Mild cartilage thinning and loss overlying the anterior aspect of the lateral femoral condyle. 10. Small suprapatellar joint effusion. Small posterior Sue cyst. 11. At the posterior aspect of the distal femur, approximating the posterior cortex, there is a lobulated focal area of fluid signal intensity measuring 1.8 centimeters which may represent a synovial cyst and or ganglia and or additional etiology. More distally, an additional 9 millimeter rounded foci of fluid intensity signal demonstrating decreased T1 signal and increased STIR signal may also represent a small synovial cyst and or ganglia and or additional etiology. 12. Moderate grade strains of the medial and lateral patellar retinaculum. 13. Heterogeneity of the visualized marrow with patchy decreased T1 signal suggestive for hematopoietic marrow reconversion. Assessment & Plan (1) Intractable neuropathic pain of left knee Assessment and Plan: s/p bilateral knee steroid injection for DJD in office of 03/05 leukocytosis possibly due to steroids no fevers left knee not obviously septic clinically possibly just flare from injection (right improving) xrays B knees (already ordered) VTE proph plan PT/OT after imaging awaiting plan for Dr. Ospina d/w Dr. Ospina no joint effusion appreciate on xrays, moderate tricompartmental DJD bilaterally , no fracture likely synovitis after injection, which should improve quickly PT/OT Status: Acute (2) Primary osteoarthritis of right knee Status: Acute (3) Primary osteoarthritis of left knee Status: Acute (4) Intractable neuropathic pain of right knee Status: Acute
[2018-03-06 11:49] LABS: BASO # 0.01 K/mm3 (0.0-2.0); BASO % 0.1 % (0.0-3.0); GRAN # 12.46 (1.4-6.5); GRAN % 83.9 % (50.0-68.0); LYMPH # 1.6 (1.2-3.4); LYMPH % 10.9 % (22.0-35.0); MEAN CELL VOLUME 77.2 fl (80.0-105.0); MEAN CORPUSCULAR HEMOGLOBIN 24.1 pg (25.0-35.0); MEAN CORPUSCULAR HGB CONC 31.2 g/dl (31.0-37.0); MEAN PLATELET VOLUME 8.9 fl (7.0-11.0); MONO # 0.8 (0.1-0.6); MONO % 5.1 % (1.0-6.0); RBC 4.57 10^6/uL (3.5-6.1); WHITE BLOOD COUNT 14.8 10^3/ul (4.5-11.0)
[2018-03-06 11:52] LABS: CALCIUM 9.3 mg/dL (8.4-10.5)
[2018-03-06] MEDS: Insulin Reg-LOW-Coverage SC SCH ×3 (12:00→22:02)
--- NOTE | 2018-03-06 12:11 | RAD ---
PROCEDURE: Bilateral Knee Radiographs. HISTORY: rule out joint effusion COMPARISON: None. FINDINGS: BONES: Right Knee: Normal. No fracture. Left Knee: Normal. No fracture. JOINTS: Right Knee: Normal. No osteoarthritis. Left knee: There is joint space narrowing in the medial compartment SOFT TISSUES: Right Knee: Normal. Left Knee: Normal. JOINT EFFUSION: Right Knee: None. Left Knee: None. OTHER FINDINGS: Degenerative changes are seen in the patellofemoral joints IMPRESSION: Left knee. Joint space narrowing in the medial compartment. Bilateral patellofemoral degeneration
[2018-03-06] MEDS ORDERED: Oxycodone/Acetaminophen 5/325 mg Tab PO PRN (12:51)
--- NOTE | 2018-03-06 14:05 | CARD ---
APPROVED REPORT EKG Measurement Heart [id number] <Conclusion> Normal sinus rhythm Normal ECG
--- NOTE | 2018-03-06 14:29 | CP.PCM.CON ---
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 Avoid fleets enema/magnesium based laxatives. Avoid nephrotoxins/NSAIDs/ iodinated contrast (unless needed emergently) Glycemic control Further work up/management as per primary team Thanks for allowing me to participate in care of your patient. Will follow patient with you. Please call if any Qs. d/w family and team Dr Jeramy Zayas Office: [phone] Chief Complaint; Knee pain HPI: Pt is a 57 F with hx of diabetes Mellitus ( years), obesity, knee OA and CKD 3 with baseline cr 1.2-1.3 since 2011 and 1.3-1.5 since last year presented with complaints of worsening b/l knee pain and difficulty in ambulation. renal eval for CKD Denies OTC/herbal meds or NSAIDs No recent iodinated contrast exposure. No obvious episodes of low BP except BP 96/64. ROS: Cardiovascular: No chest pain. Pulmonary: No shortness of breath Gastrointestinal: denies abdominal pain No nausea. No vomiting. has chronic GI complaints as indigestion Genitourinary: No pain while urinating. Denies blood in urine. All other negative except as mentioned in HPI Physical Examination: General Appearance: Comfortable, in no acute respiratory distress, co-operative . Vitals reviewed and noted as below Head; Atraumatic, normocephalic ENT: no ulcers no thrush. Tongue is midline. Oropharynx: no rash or ulcers. EYES: Pupils are equal, round and reactive to light accommodation. Eye muscles and extraocular movement intact. Sclera is anicteric. Neck; supple no lymphadenopathy, no thyromegaly or bruit Lungs: Normal respiratory rate/effort. Breath sounds bilateral equal and clear Heart: Normal rate. s1s2 normal. No rub or gallop. Extremities: no edema. No varicose veins Neurological: Patient is alert, awake and oriented to person, place and time. No focal deficit. Strength bilateral appropriate and equal Skin: Warm and dry. Normal turgor. No rash. Palpitation: Normal elasticity for age Abdomen: Abdomen is soft. Bowel sounds +. There is no abdominal tenderness, no guarding/rigidity no organomegaly Psych: normal insight and normal affect/mood MSK: Digits and nails normal, no deformity : kidney or bladder not palpable Labs/imaging reviewed. Past medical history, past surgical history, family history, social history, allergy reviewed and noted as below Family hx: no hx of CKD. Rest non-contributory UA no protein renal imaging left kidney 3 mm calculi Past Patient History - Infectious Disease Hx of Infectious Diseases: None - Tetanus Immunizations Tetanus Immunization: Unknown - Past Medical History & Family History Past Medical History?: Yes Past Family History: Reviewed and not pertinent - Past Social History Smoking Status: Never Smoked - CARDIAC Hx Hypertension: Yes Hx Pacemaker: No - PULMONARY Hx Respiratory Disorders: Yes Hx Asthma: Yes - NEUROLOGICAL Hx Neurological Disorder: No - HEENT Hx HEENT Problems: Yes Hx Cataracts: Yes (b/l sx) - RENAL Hx Chronic Kidney Disease: No - ENDOCRINE/METABOLIC Hx Endocrine Disorders: Yes Hx Diabetes Mellitus Type 2: Yes (NIDDM) Hx Hypothyroidism: Yes - HEMATOLOGICAL/ONCOLOGICAL Hx Blood Disorders: Yes Hx Anemia: Yes - INTEGUMENTARY Hx Dermatological Problems: No - MUSCULOSKELETAL/RHEUMATOLOGICAL Hx Musculoskeletal Disorders: Yes (RA) Hx Falls: No - GASTROINTESTINAL Hx Gastrointestinal Disorders: Yes (hemorrhoids, constipation, obese) Hx Gastroesophageal Reflux: Yes - GENITOURINARY/GYNECOLOGICAL Hx Genitourinary Disorders: No - PSYCHIATRIC Hx Emotional Abuse: No Hx Physical Abuse: No Hx Substance Use: No - SURGICAL HISTORY Hx Cholecystectomy: Yes Hx Hysterectomy: Yes Hx Orthopedic Surgery: Yes (b/l knee sx) Other/Comment: b/l arm sx for swelling, - ANESTHESIA Hx Anesthesia Reactions: Yes (PALPITATIONS) Hx Malignant Hyperthermia: No Meds Allergies/Adverse Reactions: Allergies Allergy/AdvReac Type Severity Reaction Status Date / Time apple Allergy ITCHING/NASAL,THROAT Verified 03/05/18 22:06 CONGESTION - Medications Medications: Current Medications Allopurinol (Zyloprim) 100 mg PO DAILY [facility] Last Admin: 03/06/18 10:18 Dose: 100 mg Aspirin (Ecotrin) 81 mg PO DAILY [facility] Last Admin: 03/06/18 10:18 Dose: 81 mg Atorvastatin Calcium (Lipitor) 10 mg PO DIN [facility] Ergocalciferol (Drisdol 50,000 Intl Units Cap) 1 cap PO QWK [facility] Last Admin: 03/06/18 10:18 Dose: 1 cap Insulin Detemir (Levemir) 10 unit SC DAILY [facility] Insulin Human Regular (Humulin R Low) 0 units SC ACHS [facility] PRN Reason: Protocol Last Admin: 03/06/18 12:00 Dose: Not Given Levothyroxine Sodium (Synthroid) 25 mcg PO DAILY [facility] Last Admin: 03/06/18 10:18 Dose: 25 mcg Bisoprolol/Hctz [ Ziac 5-6.25 Mg] ( Home Med) 1 tab PO DAILY [facility] Last Admin: 03/06/18 10:18 Dose: Not Given Non-Formulary Medication (Linaclotide [Linzess]) 290 mcg PO DAILY [facility] Last Admin: 03/06/18 10:18 Dose: Not Given Non-Formulary Medication (Methenamine Hippurate [Methenamine Hippurate]) 1 gm PO DAILY [facility] Last Admin: 03/06/18 10:18 Dose: Not Given Oxycodone/Acetaminophen (Percocet 5/325 Mg Tab) 1 tab PO Q6H PRN PRN Reason: Pain, moderate (4-7) Stop: 03/09/18 12:52 Pantoprazole Sodium (Protonix Ec Tab) 40 mg PO ACB [facility] Sitagliptin Phosphate (Januvia) 50 mg PO DAILY [facility] Last Admin: 03/06/18 10:18 Dose: 50 mg Results - Vital Signs Recent Vital Signs: Last Vital Signs Temp 96.6 F L 03/06/18 04:33 Pulse 65 03/06/18 04:33 Resp 20 03/06/18 04:33 BP 96/54 L 03/06/18 04:33 Pulse Ox 99 03/06/18 02:57 - Labs Result Diagrams: 03/06/18 11:30 03/06/18 11:30 Labs: Laboratory Results - last 24 hr 03/06/18 03/06/18 03/06/18 05:00 11:30 11:30 WBC 14.8 H RBC 4.57 Hgb 11.0 L Hct 35.3 L MCV 77.2 L MCH 24.1 L MCHC 31.2 RDW 17.0 H Plt Count 224 MPV 8.9 Gran % 83.9 H Lymph % (Auto) 10.9 L Cherry % (Auto) 5.1 Eos % (Auto) 0.0 L Baso % (Auto) 0.1 Gran # 12.46 H Lymph # (Auto) 1.6 Cherry # (Auto) 0.8 H Eos # (Auto) 0.0 Baso # (Auto) 0.01 ESR 83 H Sodium 144 Potassium 4.7 Chloride 111 H Carbon Dioxide 22 Anion Gap 16 BUN 26 H Creatinine 1.3 H Est GFR ( Amer) 51 Est GFR (Non-Af Amer) 43 Random Glucose 145 H Calcium 9.3 Urine Color Yellow Urine Appearance Clear Urine pH 6.0 Ur Specific [place] 1.025 Urine Protein Negative Urine Glucose (UA) Negative Urine Ketones Negative Urine Blood Negative Urine Nitrate Negative Urine Bilirubin Negative Urine Urobilinogen 0.2 Ur Leukocyte Esterase Negative
--- NOTE | 2018-03-06 21:12 | CP.PCM.CON ---
History of Present Illness - History of Present Illness History of Present Illness: 57 year old female with PMH of obesity with BMI 38, asthma, HTN, DM, hypothyroidism, chronic anemia, S/P cholecystectomy, S/P hysterectomy, S/P bilateral knee surgery, bilateral arthritis of the knees came in to [facility] [place] complaining of worsening bilateral knee pain, worse on the left knee. She saw her Orthopedic surgeon and she got steroid injections for both knees, but she is still having pains. She denies fever or chills, no nausea or vomiting, no chest pain, no SOB, no headache or dizziness, no cough or rhinorrhea, no sore throat, no abdominal pain, no diarrhea, no dysuria. The patient has not been on antibiotics in the past 3 months. In the ED, she was noted to have leukocytosis and Infectious Diseases consult is requested to further evaluate and manage. Review of Systems - Review of Systems All systems: reviewed and no additional remarkable complaints except (as per HPI ) Past Patient History - Infectious Disease Hx of Infectious Diseases: None - Tetanus Immunizations Tetanus Immunization: Unknown - Past Medical History & Family History Past Medical History?: Yes - Past Social History Smoking Status: Never Smoked - CARDIAC Hx Hypertension: Yes Hx Pacemaker: No - PULMONARY Hx Respiratory Disorders: Yes Hx Asthma: Yes - NEUROLOGICAL Hx Neurological Disorder: No - HEENT Hx HEENT Problems: Yes Hx Cataracts: Yes (b/l sx) - RENAL Hx Chronic Kidney Disease: No - ENDOCRINE/METABOLIC Hx Endocrine Disorders: Yes Hx Diabetes Mellitus Type 2: Yes (NIDDM) Hx Hypothyroidism: Yes - HEMATOLOGICAL/ONCOLOGICAL Hx Blood Disorders: Yes Hx Anemia: Yes - INTEGUMENTARY Hx Dermatological Problems: No - MUSCULOSKELETAL/RHEUMATOLOGICAL Hx Musculoskeletal Disorders: Yes (RA) Hx Falls: No - GASTROINTESTINAL Hx Gastrointestinal Disorders: Yes (hemorrhoids, constipation, obese) Hx Gastroesophageal Reflux: Yes - GENITOURINARY/GYNECOLOGICAL Hx Genitourinary Disorders: No - PSYCHIATRIC Hx Emotional Abuse: No Hx Physical Abuse: No Hx Substance Use: No - SURGICAL HISTORY Hx Cholecystectomy: Yes Hx Hysterectomy: Yes Hx Orthopedic Surgery: Yes (b/l knee sx) Other/Comment: b/l arm sx for swelling, - ANESTHESIA Hx Anesthesia Reactions: Yes (PALPITATIONS) Hx Malignant Hyperthermia: No Meds Allergies/Adverse Reactions: Allergies Allergy/AdvReac Type Severity Reaction Status Date / Time apple Allergy ITCHING/NASAL,THROAT Verified 06/11/18 22:06 CONGESTION - Medications Medications: Current Medications Allopurinol (Zyloprim) 100 mg PO DAILY [facility] Aspirin (Ecotrin) 81 mg PO DAILY [facility] Atorvastatin Calcium (Lipitor) 10 mg PO DIN [facility] Ergocalciferol (Drisdol 50,000 Intl Units Cap) 1 cap PO QWK [facility] Insulin Detemir (Levemir) 10 unit SC BID [facility] Insulin Human Regular (Humulin R Low) 0 units SC ACHS [facility] PRN Reason: Protocol Levothyroxine Sodium (Synthroid) 25 mcg PO DAILY [facility] Bisoprolol/Hctz [ Ziac 5-6.25 Mg] ( Home Med) 1 tab PO DAILY [facility] Non-Formulary Medication (Linaclotide [Linzess]) 290 mcg PO DAILY [facility] Non-Formulary Medication (Methenamine Hippurate [Methenamine Hippurate]) 1 gm PO DAILY [facility] Pantoprazole Sodium (Protonix Inj) 40 mg IV DAILY [facility] Sitagliptin Phosphate (Januvia) 50 mg PO DAILY [facility] Physical Exam - Constitutional Appears: Non-toxic - Head Exam Head Exam: NORMAL INSPECTION - Neck Exam Neck exam: Negative for: Meningismus - Respiratory Exam Respiratory Exam: Decreased Breath Sounds - Cardiovascular Exam Cardiovascular Exam: +S1, +S2 - GI/Abdominal Exam GI & Abdominal Exam: Soft. absent: Tenderness - Extremities Exam Additional comments: no swelling or erythema of both knees Results - Vital Signs Recent Vital Signs: Last Vital Signs Temp 96.6 F L 03/06/18 04:33 Pulse 65 03/06/18 04:33 Resp 20 03/06/18 04:33 BP 96/54 L 03/06/18 04:33 Pulse Ox 99 03/06/18 02:57 - Labs Result Diagrams: 03/06/18 11:30 03/06/18 11:30 Labs: Laboratory Results - last 24 hr 03/06/18 05:00 Urine Color Yellow Urine Appearance Clear Urine pH 6.0 Ur Specific Richards 1.025 Urine Protein Negative Urine Glucose (UA) Negative Urine Ketones Negative Urine Blood Negative Urine Nitrate Negative Urine Bilirubin Negative Urine Urobilinogen 0.2 Ur Leukocyte Esterase Negative Assessment & Plan - Assessment and Plan (Free Text) Plan: Assessment Leukocytosis probably acute stress reaction from bilateral knee pain on top of steroid use for the knees, left worse than right, in this patient with arthritis of both knees with probable patellofemoral syndrome obesity with BMI 38 asthma HTN DM hypothyroidism chronic anemia S/P cholecystectomy S/P hysterectomy S/P bilateral knee surgery bilateral arthritis of the knees Plan will monitor the patient off antibiotics - reviewed xray of the knees which does not show effusion but shows left knee arthritis and patello-femoral degeneration
[2018-03-07 01:22] VITALS: TEMP 98
[2018-03-07] MEDS ORDERED: Pantoprazole 40 mg EC Tab PO SCH (07:30)
[2018-03-07 07:45] LABS: BASO # 0.02 K/mm3 (0.0-2.0); BASO % 0.2 % (0.0-3.0); EOS % 0.2 % (1.5-5.0); GRAN # 9.67 (1.4-6.5); GRAN % 77.8 % (50.0-68.0); HEMOGLOBIN 10.7 g/dL (12.0-16.0); LYMPH # 1.8 (1.2-3.4); LYMPH % 14.7 % (22.0-35.0); MEAN CELL VOLUME 77.1 fl (80.0-105.0); MEAN CORPUSCULAR HEMOGLOBIN 23.8 pg (25.0-35.0); MEAN CORPUSCULAR HGB CONC 30.9 g/dl (31.0-37.0); MEAN PLATELET VOLUME 9.2 fl (7.0-11.0); MONO # 0.9 (0.1-0.6); MONO % 7.1 % (1.0-6.0); RBC 4.49 10^6/uL (3.5-6.1); RED CELL DISTRIBUTION WIDTH 17.1 % (11.5-14.5); WHITE BLOOD COUNT 12.4 10^3/ul (4.5-11.0)
[2018-03-07 07:56] LABS: CALCIUM 9.2 mg/dL (8.4-10.5)
[2018-03-07 08:17] VITALS: BP 90/44; PULSE 68; O2SAT 97
[2018-03-07] MEDS ORDERED: Enoxaparin 30 mg Syringe SC SCH (10:00)
[2018-03-07] MEDS ORDERED: Sodium Chloride 0.9% 1,000 ML IV SCH (10:15)
[2018-03-07] MEDS: Levothyroxine 25 MCG TAB PO SCH (11:02)
[2018-03-07] MEDS: Bisoprolol/Hctz [Ziac 5-6.25 Mg] (HOME MED) PO SCH (11:02)
[2018-03-07] MEDS: Non Formulary Medication (Linaclotide [Linzess] 290 MCG) PO SCH (11:03)
[2018-03-07] MEDS: Insulin Reg-LOW-Coverage SC SCH ×2 (11:03→12:07)
[2018-03-07] MEDS: METHENAMINE HIPPURATE 1 GM PO SCH (11:04)
--- NOTE | 2018-03-07 15:40 | HP ---
DATE OF EXAM: 03/06/2018 REASON FOR ADMISSION: Severe bilateral knee pain. HISTORY OF PRESENT ILLNESS: This is a 57-year-old female who has diabetes type 2, hypertension, obesity, severe osteoarthritis, severe spine and disk disease, was seen by Dr. Ashish Moses who gave her injections in both knees. That day, she went home. She complained of severe pain and later on, she took her pain medicine; however, she could not stand up and she almost fell and her pain was so severe that she had to come to the ER for evaluation. She denied any history of any trauma or any fever or chills or nausea or vomiting. Patient has seen Dr. Moses in the past and recommendation to give injection for now. PAST MEDICAL HISTORY: Diabetes type 2, hypertension, hypercholesterolemia, obesity, multiple disk disease, spinal stenosis, hypothyroidism. She is on allopurinol for possible uric acid or gouty arthritis. ALLERGIES: . NO MEDICATION ALLERGY. SOCIAL HISTORY: No smoking, no drinking. FAMILY HISTORY: Noncontributory. REVIEW OF SYSTEMS: As in the present illness, patient does have some knee arthritis associated with pain, chronic back pain, chronic neck pain. She had vision problem. She had a history of retinal disease. She does have constipation, chronic and she has dysuria sometimes. She has vaginal discharge or problems in the past, seen multiple gynecologists for bad odor, that is of unclear etiology. She also has history of anxiety and insomnia. MEDICATIONS AT HOME: She takes Januvia 100 mg once a day, Pravachol 40 mg once a day, Protonix 40 once a day, mesalamine hippurate 1 g p.o. daily, Linzess 290 mcg p.o. daily, Synthroid 25 mcg daily, vitamin E once a week, Ziac 5/6.25 mg once a day, aspirin 81 mg once a day, allopurinol 100 mg p.o. daily. She also takes diabetic medicine, Januvia and unclear whether she takes metformin or not. PHYSICAL EXAMINATION: GENERAL: Patient was seen. She was sitting in a bed, hardly walk to the bathroom with some limping, which is better than the day of admission, so yesterday when she was seen in the Emergency Room. VITAL SIGNS: As follows. Temperature 98.5, heart rate 65, blood pressure 96/54, respirations 20, saturation 99% on room air. HEAD AND NECK: Normal. No JVD. No thyromegaly. CHEST: Clear bilaterally. CARDIAC: First sound and second sound are normal. No murmur, rub or gallop. ABDOMEN: Obese, soft, nontender. EXTREMITIES: Bilaterally knees, mild general tenderness. There is a Band Aid just put in both knees at the site of injection. There is no redness. No significant effusions and no swelling. She does have pain with movement, but tolerable. NEUROLOGIC: Normal. LABORATORY STUDIES: CBC including white count 13.4, hemoglobin 11.6, hematocrit 37.3, platelets 239. Chemistry: Sodium 143, potassium 4.9, chloride 111, bicarbonate 21, BUN 26, creatinine 1.4, blood sugar 186. Liver function tests were, otherwise, normal. Patient also had a knee x-ray and x-ray showed normal knee, no osteoarthritis. Left knee, there is a joint space narrowing in the medial compartment. No signs of effusions on x-ray. IMPRESSION AND PLAN: 1. Severe bilateral knee pain, etiology possibly could be due to injection of a steroid, first 24 hours shooted this pain. Plan is to continue oxycodone and Percocet p.r.n. for pain. We will get Dr. Ashish Moses to see the patient. She seems normal. I doubt any sign of infection; however, we will get an ID consult to rule out any or to evaluate for possible injection for both knee evaluation. 2. Patient is diabetic, has chronic renal insufficiency. We will get to look at her and to evaluate her. 3. Diabetes. She is on Januvia. We will continue Januvia 100, which will be reduced; however, we will see how she does and continue insulin coverage p.r.n. four times a day and we are going to give her Lantus 10 twice a day. I advised the nurse to cut down to 10 once a day, however, my expectation is that sugar will go up with bilateral knee l knee joint steroid injections. 3. Hypertension and hypercholesterolemia, chronic back pain, chronic osteoarthritis and multiple disk disease of the spine. She is to continue Percocet. Continue current treatment. We will resume all her medications. We are going to give her deep venous thrombosis prophylaxis, probably Lovenox 20 mg daily and we will follow up clinically. Isac Kendrick MD
[2018-03-07] MEDS ORDERED: Insulin Detemir 100 units/ml Vial (Levemir) SC SCH (18:00)
--- NOTE | 2018-03-07 18:46 | CP.PCM.PN ---
Subjective - Date & Time of Evaluation Date of Evaluation: 03/07/18 Time of Evaluation: 12:00 - Subjective Subjective: Knee pain is less, no fevers, not in distress. Objective - Vital Signs/Intake and Output Vital Signs (last 24 hours): Temp Pulse Resp BP Pulse Ox 98 F 68 20 90/44 L 97 03/07/18 06:00 03/07/18 06:00 03/07/18 06:00 03/07/18 06:00 03/07/18 06:00 - Medications Medications: Current Medications Allopurinol (Zyloprim) 100 mg PO DAILY [facility] Last Admin: 03/06/18 10:18 Dose: 100 mg Aspirin (Ecotrin) 81 mg PO DAILY [facility] Last Admin: 03/06/18 10:18 Dose: 81 mg Atorvastatin Calcium (Lipitor) 10 mg PO DIN [facility] Last Admin: 03/06/18 17:35 Dose: 10 mg Enoxaparin Sodium (Lovenox) 30 mg SC DAILY [facility] PRN Reason: Protocol Ergocalciferol (Drisdol 50,000 Intl Units Cap) 1 cap PO QWK [facility] Last Admin: 03/06/18 10:18 Dose: 1 cap Sodium Chloride (Sodium Chloride 0.9%) 1,000 mls @ 70 mls/hr IV .[id number] [facility] Insulin Detemir (Levemir) 10 unit SC DAILY [facility] Insulin Human Regular (Humulin R Low) 0 units SC ACHS [facility] PRN Reason: Protocol Last Admin: 03/06/18 22:02 Dose: Not Given Levothyroxine Sodium (Synthroid) 25 mcg PO DAILY [facility] Last Admin: 03/06/18 10:18 Dose: 25 mcg Bisoprolol/Hctz [ Ziac 5-6.25 Mg] ( Home Med) 1 tab PO DAILY [facility] Last Admin: 03/06/18 10:18 Dose: Not Given Non-Formulary Medication (Linaclotide [Linzess]) 290 mcg PO DAILY [facility] Last Admin: 03/06/18 10:18 Dose: Not Given Non-Formulary Medication (Methenamine Hippurate [Methenamine Hippurate]) 1 gm PO DAILY [facility] Last Admin: 03/06/18 10:18 Dose: Not Given Oxycodone/Acetaminophen (Percocet 5/325 Mg Tab) 1 tab PO Q6H [facility]N PRN Reason: Pain, moderate (4-7) Stop: 03/09/18 12:52 Last Admin: 03/06/18 14:45 Dose: 1 tab Pantoprazole Sodium (Protonix Ec Tab) 40 mg PO ACB [facility] Last Admin: 03/07/18 08:21 Dose: 40 mg Sitagliptin Phosphate (Januvia) 50 mg PO DAILY [facility] Last Admin: 03/06/18 10:18 Dose: 50 mg - Labs Labs: 03/07/18 07:15 03/07/18 07:15 - Constitutional Appears: Non-toxic, Chronically Ill - Head Exam Head Exam: NORMAL INSPECTION - Neck Exam Neck Exam: absent: Meningismus - Respiratory Exam Respiratory Exam: Decreased Breath Sounds - Cardiovascular Exam Cardiovascular Exam: +S1, +S2 - GI/Abdominal Exam GI & Abdominal Exam: Soft. absent: Tenderness Assessment and Plan - Assessment and Plan (Free Text) Plan: Assessment Leukocytosis probably acute stress reaction from bilateral knee pain on top of steroid use for the knees, left worse than right, in this patient with arthritis of both knees with probable patellofemoral syndrome obesity with BMI 38 asthma HTN DM hypothyroidism chronic anemia S/P cholecystectomy S/P hysterectomy S/P bilateral knee surgery bilateral arthritis of the knees Plan will continue to monitor the patient off antibiotics - reviewed xray of the knees which does not show effusion but shows left knee arthritis and patello- femoral degeneration
[2018-03-08] MEDS ORDERED: Multivitamin Vitamin B Complex (Nephro-Vite) Tab PO SCH (08:00)
--- NOTE | 2018-03-09 06:57 | DS ---
HISTORY OF PRESENT ILLNESS: This is a 57-year-old female admitted to the hospital after being admitted because of severe bilateral knee pain after both knees had been injected with Kenalog and cortisone and lidocaine, and the patient came in with severe bilateral knee pain. The patient was seen by Orthopedic, Dr. Mike Ospina, and also by ID consult, Dr. Rae. The patient was cleared and also seen by Physical Therapy, was given pain medications and was advised to use local compresses. She seems to be doing better since she came in, over 24 hours. She is able to walk to the bathroom. Physical Therapy did see the patient and recommend to be discharged with any no signs of infections, no swelling, and no fluid. X-rays were negative. The patient was advised to be discharged and follow up as outpatient with Dr. Ospina. PHYSICAL EXAMINATION: VITAL SIGNS: On discharge, her vital signs were stable. Temperature 98, heart rate 68, blood pressure is 106/67, respirations 20, saturation 97%. HEAD AND NECK: Normal. No JVD. No thyromegaly. CHEST: Clear, good air entry. CARDIAC: First and second sound normal. ABDOMEN: Soft, obese, nontender. EXTREMITIES: Normal. No edema, no swelling and no redness. LABORATORY DATA: Her white count is coming down, probably steroid related. It came down from 14.8 to 12.4, hemoglobin 10.7, hematocrit 34.6, platelets 246. Her chemistry was within normal range. Sodium 143, potassium 4.6, chloride 108, bicarbonate 24, BUN 27, creatinine 1.3, blood sugar 126, and ferritin 111. She does have low iron saturations. Vitamin D level is 43.4, which is normal. She also had a urinalysis, which was negative. DISCHARGE DIAGNOSES: 1. Bilateral knee osteoarthritis, stable. 2. Bilateral knee pain, post injection. 3. Diabetes type 2. 4. Hypertension. 5. The patient had diabetic retinopathy. 6. Chronic back pain with multiple disk prolapses and herniations in the neck and lumbosacral area. 7. Obesity. 8. Hypercholesterolemia. 9. Hypothyroidism. 10. History of gouty arthritis. 11. Renal insufficiency, chronic. PLAN: Discharge the patient, to be followed up by Dr. Ospina. The patient was cleared by as the specialists. She should continue also Synthroid 25 mcg once a day, Linzess p.r.n., Januvia. Continue all her medications as it is including Januvia 100 mg daily, Pravachol 40 mg daily, Protonix 40 mg daily, methenamine hippurate 1 g daily, Linzess 290 daily, Synthroid 25 mcg daily, vitamin D every 2 weeks, Ziac 5/6.25 mg daily, aspirin 81 mg daily, Zyloprim (allopurinol) 100 mg daily, Percocet 1 every 8 hours p.r.n. Follow up in a week. Isac Kendrick MD
== END 2018-03-07 16:23 | disposition home or self-care (01) ==
LOC: ED 21:58 → ERH 03-06 02:09 → 5RSO 03-06 03:07
PROVIDERS: ADMIT Internal Medicine; ATTEND Internal Medicine
DX: M17.0 Bilateral primary osteoarthritis of knee (principal); K21.9 Gastro-esophageal reflux disease without esophagitis; N18.3 Chronic kidney disease, stage 3 (moderate); I12.9 Hypertensive chronic kidney disease with stage 1 through stage 4 chronic kidney disease, or unspecified chronic kidney disease; E11.22 Type 2 diabetes mellitus with diabetic chronic kidney disease; M47.9 Spondylosis, unspecified; E66.01 Morbid (severe) obesity due to excess calories; E78.00 Pure hypercholesterolemia, unspecified; E03.9 Hypothyroidism, unspecified; M48.00 Spinal stenosis, site unspecified; D64.9 Anemia, unspecified; J45.909 Unspecified asthma, uncomplicated; M22.2X9 Patellofemoral disorders, unspecified knee; Z68.38 Body mass index [BMI] 38.0-38.9, adult; Z79.82 Long term (current) use of aspirin; Z79.84 Long term (current) use of oral hypoglycemic drugs
CPT/HCPCS: 36415; 71045; 73560; 80048; 80053; 81003; 82306; 82728; 82948; 83540; 83550; 83970; 85025; 85027; 85651; 86140; 93005; 96360; 96374; 97161; 97530; 99284; C9113; G0378; G8978; G8979; J1650; J1885; J7030

== ENCOUNTER 2018-10-13 10:17 | Emergency (ER) | payer MEDICARE, MEDICAID ==
[2018-10-13 10:21] VITALS: BMI 38.4
[2018-10-13 10:31] VITALS: RESP 18; TEMP 98
--- NOTE | 2018-10-13 10:39 | ED PDOC ---
Arrival/HPI - General Chief Complaint: Lower Extremity Problem/Injury Historian: Patient - History of Present Illness Narrative History of Present Illness (Text): 10/13/18 10:36 58yo morbidly obese female with pmhx of hypotension, hypothyroid, Diabetes, DVT bib the EMS for complaint of right calf pain that now radiates up to her upper leg x 2days. States she was on anitcoagulant years ago for DVT, but currently only on baby ASA. She denies trauma, chest pain, SOB, diaphoresis, fever, chills, recent surgery/travel, dizziness, any other complaint. Past Medical History - Provider Review Nursing Documentation Reviewed: Yes - Infectious Disease Hx of Infectious Diseases: None - Tetanus Immunization Tetanus Immunization: Unknown - Reproductive Menopause: Yes - Cardiac Hx Hypertension: Yes - Pulmonary Hx Respiratory Disorders: Yes Hx Asthma: Yes - Neurological Hx Neurological Disorder: No - HEENT Hx HEENT Disorder: Yes Hx Cataracts: Yes (b/l sx) - Renal Hx Renal Disorder: No - Endocrine/Metabolic Hx Diabetes Mellitus Type 2: Yes (NIDDM) Hx Hypothyroidism: Yes - Hematological/Oncological Hx Blood Disorders: Yes Hx Anemia: Yes - Integumentary Hx Dermatological Disorder: No - Musculoskeletal/Rheumatological Hx Arthritis: Yes Other/Comment: R DVT - Gastrointestinal Hx Gastrointestinal Disorders: Yes (hemorrhoids, constipation, obese) Hx Gastroesophageal Reflux: Yes - Genitourinary/Gynecological Hx Genitourinary Disorders: No - Psychiatric Hx Substance Use: No - Surgical History Hx Cholecystectomy: Yes Hx Hysterectomy: Yes Hx Orthopedic Surgery: Yes (b/l knee sx) Other/Comment: b/l arm sx for swelling, - Anesthesia Hx Anesthesia Reactions: Yes (PALPITATIONS) Hx Malignant Hyperthermia: No - Suicidal Assessment Feels Threatened In Home Enviroment: No Family/Social History - Physician Review Nursing Documentation Reviewed: Yes Family/Social History: Unknown Family HX Smoking Status: Never Smoked Hx Alcohol Use: No Hx Substance Use: No Hx Substance Use Treatment: No Allergies/Home Meds Allergies/Adverse Reactions: Allergies apple Allergy (Verified 03/05/18 22:06) ITCHING/NASAL,THROAT CONGESTION Home Medications: Home Meds Medication Instructions Recorded Confirmed RX: Allopurinol [Zyloprim] 100 mg PO DAILY 04/29/17 03/05/18 RX: Aspirin [Adult Low Dose 81 mg PO DAILY 04/29/17 03/05/18 Aspirin EC] RX: Bisoprolol/HCTZ [Ziac 5-6.25 1 tab PO DAILY 04/29/17 03/05/18 mg] RX: Ergocalciferol (Vitamin D2) 50,000 unit PO QWK 04/29/17 03/05/18 [Vitamin D2] RX: Levothyroxine [Synthroid] 25 mcg PO DAILY 04/29/17 03/05/18 RX: Linaclotide [Linzess] 290 mcg PO DAILY 04/29/17 03/05/18 RX: Methenamine Hippurate 1 gm PO DAILY 04/29/17 03/05/18 RX: Pravastatin Sodium [Pravachol] 40 mg PO DAILY 04/29/17 03/05/18 RX: SITagliptin [Januvia] 100 mg PO DAILY 04/29/17 03/05/18 Review of Systems - Physician Review All systems were reviewed & negative as marked: Yes - Review of Systems Constitutional: Normal Eyes: Normal ENT: Normal Respiratory: Normal Cardiovascular: Normal Gastrointestinal: Normal Genitourinary Female: Normal Musculoskeletal: Arthralgias (Right leg pain) Skin: Normal Neurological: Normal Endocrine: Normal Hemo/Lymphatic: Normal Psychiatric: Normal Physical Exam Vital Signs Reviewed: Yes Vital Signs Temp Pulse Resp BP Pulse Ox 10/13/18 10:18 98 F 70 18 114/67 96 Temperature: Afebrile Blood Pressure: Normal Pulse: Regular Respiratory Rate: Normal Appearance: Positive for: Well-Appearing, Non-Toxic, Comfortable Pain Distress: None Mental Status: Positive for: Alert and Oriented X 3 - Systems Exam Head: Present: Atraumatic, Normocephalic Pupils: Present: PERRL Extroacular Muscles: Present: EOMI Conjunctiva: Present: Normal Mouth: Present: Moist Mucous Membranes Neck: Present: Normal Range of Motion Respiratory/Chest: Present: Clear to Auscultation, Good Air Exchange. No: Respiratory Distress, Accessory Muscle Use Cardiovascular: Present: Regular Rate and Rhythm, Normal S1, S2. No: Murmurs Abdomen: No: Tenderness, Distention, Peritoneal Signs Back: Present: Normal Inspection Upper Extremity: Present: Normal Inspection. No: Cyanosis, Edema Lower Extremity: Present: CALF TENDERNESS (Right leg), NORMAL PULSES, Normal ROM, Neurovascularly Intact. No: Edema, Rafa's Sign, Tenderness, Swelling, Erythema, Temperature Abnormalties Neurological: Present: GCS=15, CN II-XII Intact, Speech Normal Skin: Present: Warm, Dry, Normal Color. No: Rashes Psychiatric: Present: Alert, Oriented x 3, Normal Insight, Normal Concentration Medical Decision Making ED Course and Treatment: 10/13/18 14:17 PT present to ED for stated history. B/L Doppler US - Preliminary report was negative for DVT. Result was DW the pt. Treated and DC home with Tramadol. He was ambulatory. - RAD Interpretation Radiology Orders: 10/13/18 10:35 DUPLEX LOWER EXTRM VEIN BILAT [US] Stat Disposition/Present on Arrival - Present on Arrival Any Indicators Present on Arrival: No History of DVT/PE: No History of Uncontrolled Diabetes: No Urinary Catheter: No History of Decub. Ulcer: No History Surgical Site Infection Following: Orthopedic Procedures - Disposition Have Diagnosis and Disposition been Completed?: Yes Diagnosis: Leg pain Disposition: HOME/ ROUTINE Disposition Time: 11:40 Patient Plan: Discharge Condition: STABLE Discharge Instructions (ExitCare): Muscle Strain Additional Instructions: Follow up with your doctor Return to ED for any new or worsening symptoms Prescriptions: RX: traMADol [Ultram] 50 mg PO TID #9 tab Referrals: Isac Kendrick MD [Family Provider] - Follow up with primary Forms: [employer] (Citizen Of [place])
[2018-10-13 12:17] VITALS: BP 105/56; PULSE 69; O2SAT 98
--- NOTE | 2018-10-14 12:53 | US ---
HISTORY: Leg pain and swelling. Evaluate for DVT PHYSICIAN(S): Bobby Johnston MD. TECHNIQUE: Duplex sonography and color-flow Doppler with graded compression were used to evaluate the deep venous systems of both lower extremities. The exam is somewhat limited by body habitus FINDINGS: The visualized deep venous systems of both lower extremities are sonographically normal and compressible. Normal wave forms and augmentation are seen. There is no sonographic evidence for deep venous thrombosis in the visualized segments of both lower extremities. IMPRESSION: No sonographic evidence for deep venous thrombosis in the visualized segments of both lower extremities.
== END 2018-10-13 12:25 | disposition home or self-care (01) ==
LOC: ED 10:17
DX: M79.604 Pain in right leg (principal); Z86.718 Personal history of other venous thrombosis and embolism; Z79.82 Long term (current) use of aspirin

== ENCOUNTER 2018-10-24 08:17 | Outpatient (CLI) | payer MEDICARE, MEDICAID | END 2018-10-24 08:18 | disposition home or self-care (01) | LOC: LAB 08:17 | DX: N18.3 Chronic kidney disease, stage 3 (moderate) (principal); R30.0 Dysuria; E11.9 Type 2 diabetes mellitus without complications; E66.01 Morbid (severe) obesity due to excess calories; F43.0 Acute stress reaction; J45.998 Other asthma; M54.2 Cervicalgia; M54.5 Low back pain ==

== ENCOUNTER 2018-12-03 10:30 | Outpatient (CLI) | payer MEDICARE, MEDICAID | END 2018-12-03 10:31 | disposition home or self-care (01) | LOC: LAB 10:30 ==

== ENCOUNTER 2018-12-10 08:29 | Outpatient (CLI) | payer MEDICARE, MEDICAID | END 2018-12-10 08:30 | disposition home or self-care (01) | LOC: RAD 08:29 ==

== ENCOUNTER 2018-12-15 10:42 | Inpatient (IN) | payer MEDICARE, MEDICAID ==
[2018-12-15 10:59] VITALS: BMI 42.0
--- NOTE | 2018-12-15 11:30 | ED PDOC ---
Arrival/HPI - General Historian: Patient - Critical Care Critical Care Minutes: 45 minutes - History of Present Illness Narrative History of Present Illness (Text): 12/15/18 11:27 58 year old female with a past medical history of diabetes, hypertension, obesity, severe osteoarthritis, and severe spine and disk disease comes in today reporting worsening chronic back pain since yesterday. Patient denies any urinary or bowel incontinence or numbness in the pelvic area. Patient denies taking anything for pain. Patient denies any recent accidents or trauma to the area. Patient also reports sever headache that began this morning. Patient states its the worse headache of her life. Patient denies any syncopal episodes, fevers, chills, nausea, vomiting, or any other complaints. PMD: Dr. Kendrick Medical history: diabetes, hypertension, obesity, severe oa Allergies: Apple Surgical history: hysterectomy, axilla shoulder Time/Duration: 4-6 hours Symptom Course: Unchanged Quality: Throbbing Severity Level: 9 Activities at Onset: Rest Context: Sitting, Standing, Walking <Denis Garcia - Last Filed: 12/15/18 13:50> <Carlyle Cohen - Last Filed: 12/15/18 16:28> - General Chief Complaint: Back Pain Past Medical History - Provider Review Nursing Documentation Reviewed: Yes - Infectious Disease Hx of Infectious Diseases: None - Tetanus Immunization Tetanus Immunization: Unknown - Cardiac Hx Hypertension: Yes - Pulmonary Hx Respiratory Disorders: Yes Hx Asthma: Yes - Neurological Hx Neurological Disorder: No - HEENT Hx HEENT Disorder: Yes Hx Cataracts: Yes (b/l sx) - Renal Hx Renal Disorder: No - Endocrine/Metabolic Hx Diabetes Mellitus Type 2: Yes (NIDDM) Hx Hypothyroidism: Yes - Hematological/Oncological Hx Blood Disorders: Yes Hx Anemia: Yes - Integumentary Hx Dermatological Disorder: No - Musculoskeletal/Rheumatological Hx Arthritis: Yes Other/Comment: R DVT - Gastrointestinal Hx Gastrointestinal Disorders: Yes (hemorrhoids, constipation, obese) Hx Gastroesophageal Reflux: Yes - Genitourinary/Gynecological Hx Genitourinary Disorders: No - Psychiatric Hx Emotional Abuse: No Hx Physical Abuse: No Hx Substance Use: No - Surgical History Hx Cholecystectomy: Yes Hx Hysterectomy: Yes Hx Orthopedic Surgery: Yes (b/l knee sx) Other/Comment: b/l arm sx for swelling, - Anesthesia Hx Anesthesia Reactions: Yes (PALPITATIONS) Hx Malignant Hyperthermia: No - Suicidal Assessment Feels Threatened In Home Enviroment: No <Denis Garcia - Last Filed: 12/15/18 13:50> Family/Social History - Physician Review Nursing Documentation Reviewed: Yes Family/Social History: No Known Family HX Smoking Status: Never Smoked Hx Alcohol Use: No Hx Substance Use: No Hx Substance Use Treatment: No <Denis Garcia - Last Filed: 12/15/18 13:50> Allergies/Home Meds <Denis Garcia - Last Filed: 12/15/18 13:50> <Carlyle Cohen - Last Filed: 12/15/18 16:28> Allergies/Adverse Reactions: Allergies apple Allergy (Verified 03/05/18 22:06) ITCHING/NASAL,THROAT CONGESTION Home Medications: Home Meds Medication Instructions Recorded Confirmed Allopurinol [Zyloprim] 100 mg PO DAILY 04/29/17 03/05/18 Aspirin [Adult Low Dose Aspirin EC] 81 mg PO DAILY 04/29/17 03/05/18 Bisoprolol/HCTZ [Ziac 5-6.25 mg] 1 tab PO DAILY 04/29/17 03/05/18 Ergocalciferol (Vitamin D2) 50,000 unit PO QWK 04/29/17 03/05/18 [Vitamin D2] Levothyroxine [Synthroid] 25 mcg PO DAILY 04/29/17 03/05/18 Linaclotide [Linzess] 290 mcg PO DAILY 04/29/17 03/05/18 Methenamine Hippurate 1 gm PO DAILY 04/29/17 03/05/18 Pravastatin Sodium [Pravachol] 40 mg PO DAILY 04/29/17 03/05/18 SITagliptin [Januvia] 100 mg PO DAILY 04/29/17 03/05/18 Review of Systems - Physician Review All systems were reviewed & negative as marked: Yes - Review of Systems Constitutional: Normal. absent: Fatigue, Weight Change Eyes: Normal. absent: Vision Changes, Photophobia ENT: Normal. absent: Hearing Changes, Rhinorrhea Respiratory: Normal. absent: Cough Cardiovascular: Normal. absent: Chest Pain, Syncope Gastrointestinal: Normal. absent: Abdominal Pain, Vomiting Musculoskeletal: Back Pain. absent: Arthralgias Skin: Normal. absent: Rash Neurological: Headache. absent: Facial Droop, Disequilibrium Endocrine: absent: Polyuria, Polydipsia Hemo/Lymphatic: Normal. absent: Adenopathy, Easy Bleeding Psychiatric: Normal. absent: Anxiety <Denis Garcia - Last Filed: 12/15/18 13:50> Physical Exam Vital Signs Reviewed: Yes Vital Signs Temp Pulse Resp BP Pulse Ox 12/15/18 10:59 97.8 F 78 18 91/58 L 98 Temperature: Afebrile Blood Pressure: Normal Pulse: Regular Respiratory Rate: Normal Appearance: Positive for: Well-Appearing, Non-Toxic, Comfortable Pain Distress: None Mental Status: Positive for: Alert and Oriented X 3 - Systems Exam Head: Present: Atraumatic, Normocephalic. No: Abrasion Pupils: Present: PERRL. No: Sluggish Extroacular Muscles: Present: EOMI. No: Gaze Palsy Conjunctiva: Present: Normal. No: Injected Mouth: Present: Moist Mucous Membranes. No: Dry, Normal Teeth Neck: Present: Normal Range of Motion. No: Meningeal Signs, Paraspinal Tenderness Respiratory/Chest: Present: Clear to Auscultation, Good Air Exchange. No: Wheezes Cardiovascular: Present: Regular Rate and Rhythm, Normal S1, S2. No: Tachycardic Abdomen: Present: Tenderness, Normal Bowel Sounds Upper Extremity: Present: Normal Inspection. No: Cyanosis, Edema Lower Extremity: Present: Normal Inspection. No: Normal ROM Neurological: Present: CN II-XII Intact, Speech Normal. No: Normal Cerebellar Funct, Gait Normal Skin: Present: Dry, Normal Color Psychiatric: Present: Oriented x 3, Normal Insight, Normal Concentration <Denis Garcia - Last Filed: 12/15/18 13:50> Vital Signs Temp Pulse Resp BP Pulse Ox 12/15/18 10:59 97.8 F 78 18 91/58 L 98 <Carlyle Cohen - Last Filed: 12/15/18 16:28> Medical Decision Making ED Course and Treatment: 12/15/18 11:35 58 year old female presents to the emergency department complaining of worsening back pain and acute onset of headache. Plan: CBC/CMP U/A Head ct IV fluids Toradol 12/15/18 12:[address]: no acute intracranial abnormality. 12/15/18 13:[address] Kendrick and agrees to admit to service. - RAD Interpretation Radiology Orders: 12/15/18 11:19 HEAD W/O CONTRAST [CT] Stat - Medication Orders Current Medication Orders: Discontinued Medications Ketorolac Tromethamine (Toradol) 30 mg IVP STAT STA Stop: 12/15/18 11:20 <Denis Garcia - Last Filed: 12/15/18 13:50> ED Course and Treatment: Seen and examined with resident. 58 y/o F p/w back pain and headache. On exam, PERRL. - Lab Interpretations Lab Results: Total Bilirubin 0.3 mg/dL (0.2-1.3) 12/15/18 12:00 AST 22 U/L (14-36) 12/15/18 12:00 ALT < 6 U/L (7-56) L 12/15/18 12:00 Alkaline Phosphatase 78 U/L (38-126) 12/15/18 12:00 Total Protein 8.8 g/dL (5.8-8.3) H 12/15/18 12:00 Albumin 4.0 g/dL (3.0-4.8) 12/15/18 12:00 Globulin 4.7 gm/dL 12/15/18 12:00 Albumin/Globulin Ratio 0.9 (1.1-1.8) L 12/15/18 12:00 - RAD Interpretation Radiology Orders: 12/15/18 11:19 HEAD W/O CONTRAST [CT] Stat - Medication Orders Current Medication Orders: Discontinued Medications Sodium Chloride (Sodium Chloride 0.9%) 500 mls @ 999 mls/hr IV .Q31M STA Stop: 12/15/18 12:06 Last Admin: 12/15/18 11:55 Dose: 999 mls/hr eMAR Start Stop Document 12/15/18 11:55 EQ (Rec: 12/15/18 11:55 EQ [facility] Intravenous Solution Start Date 12/15/18 Start Time 11:55 Ketorolac Tromethamine (Toradol) 30 mg IVP STAT STA Stop: 12/15/18 11:20 Last Admin: 12/15/18 11:55 Dose: 30 mg MAR Pain Assessment Document 12/15/18 11:55 EQ (Rec: 12/15/18 11:56 EQ [place] [id number]) Pain Reassessment Is this a pain reassessment? No IVP Administration Document 12/15/18 11:55 EQ (Rec: 12/15/18 11:56 EQ [facility] Charges for Administration # of IVP Administrations 1 <Carlyle Cohen - Last Filed: 12/15/18 16:28> Disposition/Present on Arrival - Present on Arrival Any Indicators Present on Arrival: No History of DVT/PE: No History of Uncontrolled Diabetes: No Urinary Catheter: No History of Decub. Ulcer: No History Surgical Site Infection Following: Orthopedic Procedures - Disposition Have Diagnosis and Disposition been Completed?: Yes Patient Plan: Admission <Denis Garcia - Last Filed: 12/15/18 13:50> - Disposition Disposition Time: 13:41 <Carlyle Cohen - Last Filed: 12/15/18 16:28> - Disposition Diagnosis: Intractable back pain, Renal insufficiency Disposition: HOSPITALIZED Patient Problems: Current Active Problems Problem Status Onset Intractable back pain Acute Renal insufficiency Acute Condition: FAIR
[2018-12-15] MEDS ORDERED: Sodium Chloride 0.9% 500 ML IV STA (11:36)
[2018-12-15 12:21] LABS: BASO # 0.02 K/mm3 (0.0-2.0); BASO % 0.2 % (0.0-3.0); EOS # 0.3 (0.0-0.7); EOS % 2.5 % (1.5-5.0); HEMOGLOBIN 12.3 g/dL (12.0-16.0); LYMPH # 2.9 (1.2-3.4); LYMPH % 26.2 % (22.0-35.0); MEAN CELL VOLUME 80.5 fl (80.0-105.0); MEAN CORPUSCULAR HEMOGLOBIN 24.3 pg (25.0-35.0); MEAN CORPUSCULAR HGB CONC 30.1 g/dl (31.0-37.0); MEAN PLATELET VOLUME 9.4 fl (7.0-11.0); MONO # 0.6 (0.1-0.6); MONO % 5.7 % (1.0-6.0); RBC 5.07 10^6/uL (3.5-6.1); RED CELL DISTRIBUTION WIDTH 17.9 % (11.5-14.5)
--- NOTE | 2018-12-15 12:38 | CT ---
Date of service: 12/15/2018 PROCEDURE: CT HEAD WITHOUT CONTRAST. HISTORY: acute oset of headache COMPARISON: None available. TECHNIQUE: Axial computed tomography images were obtained through the head/brain without intravenous contrast. Radiation dose: Total exam DLP = 816.56 mGy-cm. This CT exam was performed using one or more of the following dose reduction techniques: Automated exposure control, adjustment of the mA and/or kV according to patient size, and/or use of iterative reconstruction technique. FINDINGS: HEMORRHAGE: No intracranial hemorrhage. BRAIN: Barnes-white matter differentiation is preserved. There is no mass, mass effect or abnormal extra-axial fluid collection. There is no territorial infarction. The midline sagittal structures are normal. VENTRICLES: The ventricles are normal in size, shape and configuration. CALVARIUM: There is no calvarial fracture or extracranial soft tissue swelling. There is mild hyperostosis frontalis interna. PARANASAL SINUSES: Predominantly clear. MASTOID AIR CELLS: Predominantly clear. OTHER FINDINGS: None. IMPRESSION: No acute intracranial abnormality.
[2018-12-15 13:03] LABS: ALB/GLOB RATIO 0.9 (1.1-1.8); ALT/SGPT < 6 U/L (7-56); AST/SGOT 22 U/L (14-36); BLOOD UREA NITROGEN 59 mg/dL (7-21); GFR NON-AFRICAN AMERICAN 20
[2018-12-15] MEDS ORDERED: Sodium Chloride 0.9% 1,000 ML IV SCH (15:30)
[2018-12-15] MEDS: Oxycodone/Acetaminophen 5/325 mg Tab PO PRN (16:18)
[2018-12-15] MEDS: Pantoprazole 20 mg EC Tab PO SCH ×2 (16:19→16:20)
[2018-12-15] MEDS: Insulin Reg-LOW-Coverage SC SCH ×2 (17:19→21:05)
[2018-12-15] MEDS: Sodium Chloride 0.9% 1,000 ML IV SCH (17:26)
[2018-12-15 19:11] LABS: URINE BILIRUBIN NEGATIVE (NEGATIVE); URINE BLOOD TRACE-INTACT (NEGATIVE); URINE GLUCOSE (UA) NEGATIVE (NEGATIVE); URINE LEUKOCYTE ESTERASE NEGATIVE Leu/uL (NEGATIVE); URINE PROTEIN NEGATIVE mg/dL (<30 mg/dL); URINE UROBILINOGEN 0.2 E.U./dL (<1 E.U./dL)
[2018-12-15 19:21] LABS: URINE APPEARANCE CLEAR (CLEAR); URINE COLOR YELLOW (YELLOW)
[2018-12-15 19:22] LABS: URINE WBC 0 - 2 /hpf (0-6)
[2018-12-16] MEDS: oxyCODONE 15 mg Immediate Release Tab PO PRN (04:20)
[2018-12-16] MEDS: Levothyroxine 25 MCG TAB PO SCH (07:56)
[2018-12-16] MEDS: Pantoprazole 20 mg EC Tab PO SCH (07:57)
[2018-12-16] MEDS: Insulin Reg-LOW-Coverage SC SCH ×4 (07:59→21:39)
[2018-12-16] MEDS: Oxycodone/Acetaminophen 5/325 mg Tab PO PRN (11:32)
--- NOTE | 2018-12-16 12:17 | CP.PCM.CON ---
History of Present Illness - History of Present Illness History of Present Illness: RENAL CONSULT Nephrology Consultation Note: Assessment: ARF Diabetic chronic Kidney Disease (E11.22) Chronic Kidney Disease (N18.3) Stage 3 without proteinuria (R80.9) stable Anemia (D64.9), obesity, knee OA Back pain Kidney stone Acidosis Plan JACINTO - suspect from hypovolemia and hypotension. Would recc hold bp meds at this point. Agree w/ gentle hydration. s/p tordol in ER would recc hold NSAIDS. Renal US done last week - will check w/ radiology re: report re: kidney stones start po bicarbonate Chief Complaint; Knee pain HPI: Pt is a 57 F with hx of diabetes Mellitus ( years), obesity, knee OA and CKD 3 with baseline cr 1.5, that presented w/ persistent lower back pain and left hip pain. Denies any NSAID use. + n/v. Endorses poor water intake. No fever or chills. BP has michael on low end of normal on betablocker and hctz. ROS: All other negative except as mentioned in HPI Physical Examination: General Appearance: Comfortable, in no acute respiratory distress, co-operative . Vitals reviewed and noted as below Head; Atraumatic, normocephalic ENT: no ulcers no thrush. Tongue is midline. Oropharynx: no rash or ulcers. EYES: Pupils are equal, round and reactive to light accommodation. Eye muscles and extraocular movement intact. Sclera is anicteric. Neck; supple no lymphadenopathy, no thyromegaly or bruit Lungs: Normal respiratory rate/effort. Breath sounds bilateral equal and clear Heart: Normal rate. s1s2 normal. No rub or gallop. Extremities: no edema. No varicose veins Neurological: Patient is alert, awake and oriented to person, place and time. No focal deficit. Strength bilateral appropriate and equal Skin: Warm and dry. Normal turgor. No rash. Palpitation: Normal elasticity for age Abdomen: Abdomen is soft. Bowel sounds +. There is no abdominal tenderness, no guarding/rigidity no organomegaly Psych: normal insight and normal affect/mood MSK: Digits and nails normal, no deformity : kidney or bladder not palpable Labs/imaging reviewed. Past medical history, past surgical history, family history, social history, allergy reviewed and noted as below Family hx: no hx of CKD. Rest non-contributory UA no protein renal imaging left kidney 3 mm calculi Past Patient History - Infectious Disease Hx of Infectious Diseases: None - Tetanus Immunizations Tetanus Immunization: Unknown - Past Medical History & Family History Past Medical History?: Yes - Past Social History Smoking Status: Never Smoked - CARDIAC Hx Cardiac Disorders: Yes Hx Hypercholesterolemia: Yes Hx Hypertension: Yes - PULMONARY Hx Respiratory Disorders: No - NEUROLOGICAL Hx Neurological Disorder: No - HEENT Other/Comment: retinal disease - RENAL Hx Chronic Kidney Disease: Yes Other/Comment: chronic renal insuficiency - ENDOCRINE/METABOLIC Hx Endocrine Disorders: Yes Hx Diabetes Mellitus Type 2: Yes Hx Hypothyroidism: Yes - HEMATOLOGICAL/ONCOLOGICAL Hx Blood Disorders: No - INTEGUMENTARY Hx Dermatological Problems: No - MUSCULOSKELETAL/RHEUMATOLOGICAL Hx Musculoskeletal Disorders: Yes Hx Back Pain: Yes Hx Falls: No Hx Osteoarthritis: Yes Other/Comment: b/l knee pain , chronic back and neck pain - GASTROINTESTINAL Hx Gastrointestinal Disorders: Yes - GENITOURINARY/GYNECOLOGICAL Hx Genitourinary Disorders: Yes Hx Urinary Tract Infection: Yes Other/Comment: hysterectomy - PSYCHIATRIC Hx Anxiety: Yes - SURGICAL HISTORY Hx Surgeries: Yes Other/Comment: hysterectomy - ANESTHESIA Hx Anesthesia Reactions: Yes (PALPITATIONS) Hx Malignant Hyperthermia: No Meds Allergies/Adverse Reactions: Allergies Allergy/AdvReac Type Severity Reaction Status Date / Time apple Allergy ITCHING/NASAL,THROAT Verified 03/05/18 22:06 CONGESTION - Medications Medications: Current Medications Aspirin (Ecotrin) 81 mg PO DAILY [facility] Last Admin: 12/16/18 09:14 Dose: 81 mg Atorvastatin Calcium (Lipitor) 10 mg PO HS TINO Famotidine (Pepcid) 40 mg PO DAILY [facility] Sodium Chloride (Sodium Chloride 0.9%) 1,000 mls @ 80 mls/hr IV .[id number] [facility] Last Admin: 12/15/18 17:26 Dose: 80 mls/hr Insulin Human Regular (Humulin R Low) 0 units SC [facility]; Protocol Last Admin: 12/16/18 11:32 Dose: Not Given Levothyroxine Sodium (Synthroid) 25 mcg PO ACB [facility] Last Admin: 12/16/18 07:56 Dose: 25 mcg Ondansetron HCl (Zofran Inj) 4 mg IVP Q4H PRN PRN Reason: Nausea/Vomiting Last Admin: 12/16/18 11:32 Dose: 4 mg Oxycodone HCl (Oxycodone Immediate Release Tab) 5 mg PO Q6H PRN PRN Reason: Pain, severe (8-10) Last Admin: 12/16/18 04:20 Dose: 5 mg Oxycodone/Acetaminophen (Percocet 5/325 Mg Tab) 1 tab PO TID PRN PRN Reason: Pain, moderate (4-7) Stop: 12/18/18 15:48 Last Admin: 12/16/18 11:32 Dose: 1 tab Pantoprazole Sodium (Protonix Ec Tab) 20 mg PO ACB [facility] Last Admin: 12/16/18 07:57 Dose: 20 mg Sitagliptin Phosphate (Januvia) 25 mg PO DAILY [facility] Last Admin: 12/16/18 09:14 Dose: 25 mg Tizanidine HCl (Zanaflex) 2 mg PO TID [facility] Last Admin: 12/16/18 09:14 Dose: 2 mg Results - Vital Signs Recent Vital Signs: Last Vital Signs Temp 97.8 F 12/16/18 06:00 Pulse 72 12/16/18 06:00 Resp 20 12/16/18 06:00 BP 92/49 L 12/16/18 06:00 Pulse Ox 95 12/16/18 06:00 - Labs Result Diagrams: 12/15/18 12:00 12/15/18 12:00 Labs: Laboratory Results - last 24 hr 12/15/18 12/15/18 12/15/18 12:00 12:00 15:01 WBC 11.0 D RBC 5.07 Hgb 12.3 Hct 40.8 MCV 80.5 MCH 24.3 L MCHC 30.1 L RDW 17.9 H Plt Count 282 MPV 9.4 Neut % (Auto) 65.4 Lymph % (Auto) 26.2 Elk % (Auto) 5.7 Eos % (Auto) 2.5 Baso % (Auto) 0.2 Lymph # (Auto) 2.9 Elk # (Auto) 0.6 Eos # (Auto) 0.3 Baso # (Auto) 0.02 Absolute Neuts (auto) 7.18 H Sodium 143 Potassium 4.7 Chloride 115 H Carbon Dioxide 15 L Anion Gap 17 BUN 59 H Creatinine 2.5 H Est GFR ( Amer) 24 Est GFR (Non-Af Amer) 20 POC Glucose (mg/dL) 81 Random Glucose 119 H Calcium 10.0 Total Bilirubin 0.3 AST 22 ALT < 6 L Alkaline Phosphatase 78 Total Protein 8.8 H Albumin 4.0 Globulin 4.7 Albumin/Globulin Ratio 0.9 L Urine Color Urine Appearance Urine pH Ur Specific [place] Urine Protein Urine Glucose (UA) Urine Ketones Urine Blood Urine Nitrate Urine Bilirubin Urine Urobilinogen Ur Leukocyte Esterase Urine RBC Urine WBC Ur Epithelial Cells 12/15/18 12/15/18 12/16/18 18:50 21:06 06:56 WBC RBC Hgb Hct MCV MCH MCHC RDW Plt Count MPV Neut % (Auto) Lymph % (Auto) Elk % (Auto) Eos % (Auto) Baso % (Auto) Lymph # (Auto) Elk # (Auto) Eos # (Auto) Baso # (Auto) Absolute Neuts (auto) Sodium Potassium Chloride Carbon Dioxide Anion Gap BUN Creatinine Est GFR ( Amer) Est GFR (Non-Af Amer) POC Glucose (mg/dL) 91 98 Random Glucose Calcium Total Bilirubin AST ALT Alkaline Phosphatase Total Protein Albumin Globulin Albumin/Globulin Ratio Urine Color Yellow Urine Appearance Clear Urine pH 6.0 Ur Specific [place] >= 1.030 Urine Protein Negative Urine Glucose (UA) Negative Urine Ketones Negative Urine Blood Trace-intact H Urine Nitrate Negative Urine Bilirubin Negative Urine Urobilinogen 0.2 Ur Leukocyte Esterase Negative Urine RBC 1 - 3 H Urine WBC 0 - 2 Ur Epithelial Cells 1 - 3 12/16/18 11:17 WBC RBC Hgb Hct MCV MCH MCHC RDW Plt Count MPV Neut % (Auto) Lymph % (Auto) Elk % (Auto) Eos % (Auto) Baso % (Auto) Lymph # (Auto) Elk # (Auto) Eos # (Auto) Baso # (Auto) Absolute Neuts (auto) Sodium Potassium Chloride Carbon Dioxide Anion Gap BUN Creatinine Est GFR ( Amer) Est GFR (Non-Af Amer) POC Glucose (mg/dL) 121 H Random Glucose Calcium Total Bilirubin AST ALT Alkaline Phosphatase Total Protein Albumin Globulin Albumin/Globulin Ratio Urine Color Urine Appearance Urine pH Ur Specific [place] Urine Protein Urine Glucose (UA) Urine Ketones Urine Blood Urine Nitrate Urine Bilirubin Urine Urobilinogen Ur Leukocyte Esterase Urine RBC Urine WBC Ur Epithelial Cells
--- NOTE | 2018-12-16 16:33 | RAD ---
PROCEDURE: Left Hip X-ray Radiographs. HISTORY: pain COMPARISON: None. TECHNIQUE: Three views obtained. FINDINGS: BONES: Bone alignment and mineralization are normal. There is no acute displaced fracture or bone destruction. JOINTS: Normal. SOFT TISSUES: Normal. OTHER FINDINGS: None. IMPRESSION: No acute displaced fracture or dislocation. Please note occult fractures cannot be excluded on plain radiographs. If there is a persistent clinical concern, an MRI of the hip may be performed for further evaluation.
--- NOTE | 2018-12-16 16:36 | CON ---
DATE OF CONSULTATION: 12/16/2018 REASON FOR CONSULTATION: Back pain and hypertension. HISTORY OF PRESENT ILLNESS: The patient is a 58-year-old morbidly obese [place]ian female who has a history of hypertension, diabetes mellitus, obesity and chronic renal insufficiency. The patient has a history of chronic back pain for which she only takes Tylenol. The patient reported to me that she had a history of DVT many years ago in the left lower extremity and also in the neck veins. She does not recall being placed on anticoagulation or the filter placement. She was only placed on aspirin therapy, but she was specifically told in one of the hospitals that she has high sedimentation rate. The patient denies episodes of any chest pain and she stated she underwent cardiac catheterization many years ago and was reported to be normal. SOCIAL HISTORY: Nonsmoker, nondrinker. MEDICATIONS: Aspirin 81 mg once a day, Januvia 25 mg once a day, Lipitor 10 mg once a day, Pepcid 40 mg once a day, Protonix 20 mg daily, sodium bicarb 650 mg twice a day, Synthroid 25 mg daily. REVIEW OF SYSTEMS: No fever or chills. No dizziness or syncope. PHYSICAL EXAMINATION: GENERAL: The patient is a middle-aged female who does not appear to be in acute distress. VITAL SIGNS: Blood pressure 92/49, heart rate 72, temperature 97.8, respirations 20. HEENT: Normocephalic. CHEST: Clear. HEART: S1 and S2, regular. EXTREMITIES: No edema. No calf tenderness. LABORATORY DATA: CBC: WBC 11, hemoglobin 12.3, hematocrit 40.8, platelet count 182,000. SMA-7: Sodium 143, potassium 4.7, chloride 115, CO2 of 15, glucose 119, BUN 59, creatinine 2.5. Myoview stress test in 10/2014 performed by me was negative for ischemia. ASSESSMENT: 1. Systemic hypertension. 2. Morbid obesity. 3. Worsening renal insufficiency. 4. Chronic low back pain. 5. Mild pulmonary hypertension. RECOMMENDATIONS: Continue current aspirin 81 mg once a day, Lipitor 10 mg once a day plus 20 mg once a day, Protonix 20 mg once a day, Synthroid 25 mcg once a day. Obtain EKG and an echocardiogram. Obtain ESR, rheumatoid factor, and CASSIE titers. Shahid Hartman MD [facility] # [id number]
--- NOTE | 2018-12-16 19:42 | CARD ---
APPROVED REPORT Date of service: 12/16/2018 EKG Measurement Heart [id number] <Conclusion> Normal sinus rhythm with sinus arrhythm Normal ECG
--- NOTE | 2018-12-16 21:59 | CON ---
DATE: 12/16/2018 This patient was seen and evaluated. REASON FOR CONSULTATION: History of nausea, vomiting. HISTORY OF PRESENT ILLNESS: This is a 58-year-old patient with a long history of noninsulin-dependent diabetes mellitus, hypertension, obesity, history of arthritis, chronic back pain, was admitted in the hospital with complaints of increasing back pain, weakness. The patient was found to have worsening of renal function. The patient was admitted. The patient still complains of nausea and episodes of constipation. PAST MEDICAL HISTORY: This patient has history of chronic constipation and the patient also has history of gastroparesis, history of C. difficile colitis in the past. The patient had endoscopies and colonoscopies. The EGD done last was in 06/2016 was found to have a C. diff, esophageal ulcer, grade A esophagitis and also colonoscopy in 08/2015 had shown only diverticulosis and internal hemorrhoids. The patient had been on Linzess for her chronic constipation and pantoprazole for her chronic reflux symptoms, history of esophageal ulcerations in the past. The patient could not tolerate symptoms only with H2 blockers in the past. Leavening of the process was not successful. ALLERGIES: SHE IS ALLERGIC TO APPLES. PAST SURGICAL HISTORY: Significant for hysterectomy, history of spinal stenosis, gouty arthritis. SOCIAL HISTORY: Denies smoking or alcohol. FAMILY HISTORY: Noncontributory. REVIEW OF SYSTEMS: Positive as above, history of chronic back pain, chronic neck pain, and chronic constipation problem. PHYSICAL EXAMINATION GENERAL: The patient is lying down in the bed, not in acute distress. VITAL SIGNS: Temperature is 98.2, pulse 72, respiration is 20, O2 saturation is 95%. HEENT: Atraumatic, anicteric. NECK: Supple. HEART: S1, S2. LUNGS: Bilateral air entry present. ABDOMEN: Soft. There is mild tenderness in the epigastric area to deep palpation; otherwise, unremarkable. EXTREMITIES: No cyanosis, no clubbing. NEUROLOGIC: Alert and oriented. Moves all the extremities. LABORATORY DATA: Hemoglobin is 12.3, hematocrit 40.8, WBC 11, platelets 282. Chemistry showed BUN of 15, creatinine 2.5. LFTs are normal. IMPRESSION: This is a 58-year-old patient with; 1. History of multiple medical problems including hypothyroidism, gastroparesis, chronic constipation, admitted with a worsening of renal function. She was also found to have nausea and vomiting. The nausea and vomiting could be secondary to esophagitis. The patient does have a history of esophageal reflux and esophagitis in the past, and also could be due to peptic ulcer disease or gastroparesis. 2. History of chronic constipation on Linzess. 3. Acute kidney injury on the top of chronic kidney disease. The patient was saying that she has some underlying liver problem with her kidney problem, but however, she was not taking p.o. intake well. 4. Other comorbidities include obesity, hypertension, chronic back pain, osteoarthritis. RECOMMENDATIONS 1. The patient tries to continue the pureed diet. 2. Advised to take Linzess. 3. The patient's last endoscopy was reviewed at the present. If the patient continues to remain symptomatic, we will consider repeating an upper endoscopy. We will continue to closely followup her care and suggest further management based on the clinical course. Christina Dumont MD
--- NOTE | 2018-12-16 22:05 | CON ---
DATE: 12/16/2018 HISTORY OF PRESENT ILLNESS: This is a 58-year-old female with past medical history of diabetes, hypertension, and arthritis, came with worsening of the low back pain radiating to the left extremity. No numbness or tingling. No headache. No dizziness. PAST MEDICAL HISTORY: Diabetes, hypertension, obesity, and arthritis. ALLERGIES: ALLERGIC TO APPLE. HOME MEDICATIONS: Allopurinol for gout, aspirin, levothyroxine, Synthroid, Pravachol, and Januvia for diabetes. PHYSICAL EXAMINATION HEENT: Normocephalic and atraumatic. NECK: Supple. NEUROLOGIC: Alert, awake, and oriented x3. No aphasia. Cranial nerves II to XII are tested. Pupils are equal and reactive. EOM intact. Visual field full. No facial asymmetry. Tongue midline. Motor examination; moves all the extremities equally. Tone normal. Deep tendon reflexes 1+. Both plantars are downgoing. Sensory appears intact. Cerebellar gait deferred. LABORATORY DATA: WBC 11, hemoglobin 12.3, hematocrit 40.8, and platelets 282. Sodium 142, potassium 4.7, chloride 115, CO2 of 15, glucose 119, BUN 59, creatinine 2.5. IMPRESSION: Low back pain. Also has chronic peripheral neuropathy secondary to diabetes, chronic kidney disease, and back pain. PLAN: Continue present management. CAT scan of the head was found normal. Patient was seen by Dr. Baltazar Mukherjee. Workup in progress. Continue present management. We will do the MRI of the lumbosacral spine. Ravi Garcia MD
[2018-12-17] MEDS: Oxycodone/Acetaminophen 5/325 mg Tab PO PRN ×2 (03:55→18:04)
[2018-12-17] MEDS: Sodium Chloride 0.9% 1,000 ML IV SCH ×2 (04:01→19:45)
--- NOTE | 2018-12-17 07:05 | CP.PCM.PN ---
<Deisy Umana - Last Filed: 12/17/18 17:48> Subjective - Date & Time of Evaluation Date of Evaluation: 12/17/18 Time of Evaluation: 07:05 - Subjective Subjective: Deisy Umana, PGY2, GI Progress Note for Dr Dumont: Patient seen and examined at bedside. No acute events overnight. Patient reports 2 vomiting episodes yesterday morning. However, after zofran, patient reports that they have resolved and she is tolerating PO diet well. Patient does report that her last bowel movement was 4 days ago, and that she has been taking her daily Linzess. However, patient states that she would like to try something else as well. Denies abdominal pain, nausea, vomiting, fevers, chills. Reports that her chronic back pain is mildly improving. Objective - Vital Signs/Intake and Output Vital Signs (last 24 hours): Temp Pulse Resp BP Pulse Ox 98.8 F 69 18 86/51 L 97 12/16/18 22:25 12/16/18 22:25 12/16/18 22:25 12/16/18 22:25 12/16/18 22:25 - Medications Medications: Current Medications Aspirin (Ecotrin) 81 mg PO DAILY [facility] Last Admin: 12/16/18 09:14 Dose: 81 mg Atorvastatin Calcium (Lipitor) 10 mg PO HS [facility] Last Admin: 12/16/18 21:38 Dose: 10 mg Famotidine (Pepcid) 40 mg PO DAILY [facility] Sodium Chloride (Sodium Chloride 0.9%) 1,000 mls @ 80 mls/hr IV .[id number] [facility] Last Admin: 12/17/18 04:01 Dose: 80 mls/hr Insulin Human Regular (Humulin R Low) 0 units SC [facility]; Protocol Last Admin: 12/16/18 21:39 Dose: Not Given Levothyroxine Sodium (Synthroid) 25 mcg PO ACB [facility] Last Admin: 12/16/18 07:56 Dose: 25 mcg Ondansetron HCl (Zofran Inj) 4 mg IVP Q4H PRN PRN Reason: Nausea/Vomiting Last Admin: 12/16/18 11:32 Dose: 4 mg Oxycodone HCl (Oxycodone Immediate Release Tab) 5 mg PO Q6H PRN PRN Reason: Pain, severe (8-10) Last Admin: 12/16/18 04:20 Dose: 5 mg Oxycodone/Acetaminophen (Percocet 5/325 Mg Tab) 1 tab PO TID PRN PRN Reason: Pain, moderate (4-7) Stop: 12/18/18 15:48 Last Admin: 12/17/18 03:55 Dose: 1 tab Pantoprazole Sodium (Protonix Ec Tab) 20 mg PO ACB [facility] Last Admin: 12/16/18 07:57 Dose: 20 mg Sitagliptin Phosphate (Januvia) 25 mg PO DAILY [facility] Last Admin: 12/16/18 12:56 Dose: Not Given Sodium Bicarbonate (Sodium Bicarbonate Tab) 650 mg PO TID [facility] Last Admin: 12/16/18 18:37 Dose: 650 mg Tizanidine HCl (Zanaflex) 2 mg PO TID [facility] Last Admin: 12/16/18 18:37 Dose: 2 mg - Labs Labs: 12/15/18 12:00 12/15/18 12:00 - Constitutional Appears: Non-toxic, No Acute Distress - Head Exam Head Exam: ATRAUMATIC, NORMOCEPHALIC - Eye Exam Eye Exam: EOMI, PERRL. absent: Conjunctival injection, Nystagmus, Scleral icterus Pupil Exam: NORMAL ACCOMODATION, PERRL. absent: Irregular, Miosis, Mydriatic, Unequal - ENT Exam ENT Exam: Mucous Membranes Moist - Neck Exam Neck Exam: Full ROM - Respiratory Exam Respiratory Exam: Clear to Ausculation Bilateral, NORMAL BREATHING PATTERN. absent: Accessory Muscle Use, Rhonchi, Wheezes, Stridor - Cardiovascular Exam Cardiovascular Exam: +S1, +S2. absent: Murmur - GI/Abdominal Exam GI & Abdominal Exam: Soft, Normal Bowel Sounds. absent: Distended, Guarding, Rigid, Tenderness, Mass - Extremities Exam Extremities Exam: Normal Inspection. absent: Calf Tenderness, Pedal Edema - Back Exam Back Exam: NORMAL INSPECTION - Neurological Exam Neurological Exam: Alert, Awake, Oriented x3 - Psychiatric Exam Psychiatric exam: Normal Affect, Normal Mood - Skin Skin Exam: Dry, Normal Color, Warm Assessment and Plan - Assessment and Plan (Free Text) Assessment: This is a 58 year old female with PMH DM, HTN, obesity, osteoarthritis, is here for chronic back pain. GI consulted for nausea, vomitin. Nausea, vomiting 2/2 likely gastroparesis vs gastroenteritis vs esophagitis vs chronic constipation 2. Chronic constipation 2/2 IBS, opioid medication induced 3. JACINTO on CKD 4. History of hypothyroidism, gastroparesis, HTN 5. Acute exacerbation of chronic back pain - Recommend continuing zofran as needed for nausea - will give pureed diet. - if does not improve, consider EGD - Will start home Linzess. Will also start sennosides for constipation. Will monitor bowel movements. - Cr trending down, nephro on board. - c/w pain management as per primary team. - will monitor Discussed case with Dr Dumont. <Christina Dumont V - Last Filed: 12/17/18 21:04> Objective - Vital Signs/Intake and Output Vital Signs (last 24 hours): Temp Pulse Resp BP Pulse Ox 98.2 F 74 20 94/46 L 92 L 12/17/18 06:00 12/17/18 06:00 12/17/18 06:00 12/17/18 06:00 12/17/18 06:00 - Medications Medications: Current Medications Aspirin (Ecotrin) 81 mg PO DAILY [facility] Last Admin: 12/17/18 10:59 Dose: 81 mg Atorvastatin Calcium (Lipitor) 10 mg PO HS [facility] Last Admin: 12/16/18 21:38 Dose: 10 mg Enoxaparin Sodium (Lovenox) 30 mg SC DAILY [facility] Last Admin: 12/17/18 10:59 Dose: 30 mg Famotidine (Pepcid) 40 mg PO DAILY [facility] Last Admin: 12/17/18 10:59 Dose: 40 mg Home Med (Home Med) 1 unit PO 1400 [facility] Sodium Chloride (Sodium Chloride 0.9%) 1,000 mls @ 80 mls/hr IV .[id number] [facility] Last Admin: 12/17/18 04:01 Dose: 80 mls/hr Insulin Human Regular (Humulin R Low) 0 units SC ACHS [facility]; Protocol Last Admin: 12/17/18 20:25 Dose: Not Given Levalbuterol HCl (Xopenex) 1.25 mg IH [id number] PRN PRN Reason: Shortness of Breath Levothyroxine Sodium (Synthroid) 25 mcg PO ACB [facility] Last Admin: 12/17/18 08:36 Dose: 25 mcg Ondansetron HCl (Zofran Inj) 4 mg IVP Q4H PRN PRN Reason: Nausea/Vomiting Last Admin: 12/16/18 11:32 Dose: 4 mg Oxycodone HCl (Oxycodone Immediate Release Tab) 5 mg PO Q6H PRN PRN Reason: Pain, severe (8-10) Last Admin: 12/16/18 04:20 Dose: 5 mg Oxycodone/Acetaminophen (Percocet 5/325 Mg Tab) 1 tab PO TID PRN PRN Reason: Pain, moderate (4-7) Stop: 12/18/18 15:48 Last Admin: 12/17/18 18:04 Dose: 1 tab Pantoprazole Sodium (Protonix Ec Tab) 20 mg PO ACB [facility] Last Admin: 12/17/18 08:36 Dose: 20 mg Promethazine HCl/Dextromethorphan (Phenergan Dm Syrup) 5 ml PO Q6H PRN PRN Reason: Cough Sennosides (Senokot Tab) 8.6 mg PO DAILY [facility] Last Admin: 12/17/18 13:38 Dose: 8.6 mg Sitagliptin Phosphate (Januvia) 25 mg PO DAILY [facility] Last Admin: 12/17/18 10:59 Dose: 25 mg Sodium Bicarbonate (Sodium Bicarbonate Tab) 1,300 mg PO TID [facility] Last Admin: 12/17/18 17:59 Dose: 1,300 mg Tizanidine HCl (Zanaflex) 2 mg PO TID [facility] Last Admin: 12/17/18 17:59 Dose: 2 mg - Labs Labs: 12/15/18 12:00 12/17/18 07:00 Attending/Attestation - Attestation I have personally seen and examined this patient.: Yes I have fully participated in the care of the patient.: Yes I have reviewed all pertinent clinical information, including history, physical exam and plan: Yes Notes (Text): This patient was seen and evaluated along with the resident earlier. This is an addendum to the progress note dictated by the medical transcription supervisor. Patient complains of epigastric discomfort and nausea. History of gastroparesis. Diabetes mellitus. History of chronic constipation. Patient has been on Linzess for a long time. Discussed with the patient at length patient is agreed to have pured diet for a few days. Patient had an acute kidney injury. Increase p.o. intake Thank you Dr. Kendrick for allowing us to participate in the care of the patient we will continue to closely follow-up her care and suggest further recommendations based on the clinical course 12/17/18 21:02
[2018-12-17 07:48] LABS: CALCIUM 8.7 mg/dL (8.4-10.5)
[2018-12-17] MEDS: Pantoprazole 20 mg EC Tab PO SCH (08:36)
[2018-12-17] MEDS: Levothyroxine 25 MCG TAB PO SCH (08:36)
[2018-12-17] MEDS: Insulin Reg-LOW-Coverage SC SCH ×4 (08:48→22:05)
--- NOTE | 2018-12-17 09:46 | US ---
Date of service: 12/17/2018 HISTORY: pain COMPARISON: None. TECHNIQUE: Sonographic evaluation of the abdomen. FINDINGS: LIVER: Measures 15.6 cm. Patent portal vein. Portal venous flow: Hepatopetal. Unremarkable echogenicity of the liver parenchyma. No mass. No intrahepatic bile duct dilatation. GALLBLADDER: Status post cholecystectomy. No abnormality is seen in the gallbladder fossa. COMMON BILE DUCT: Measures 5.6 mm. No stones. No dilatation. PANCREAS: Obscured by overlying bowel gas. Non diagnostic assessment of the pancreas. RIGHT KIDNEY: Measures 5.5 x 10.6cm. Normal echogenicity. No calculus, mass, or hydronephrosis. LEFT KIDNEY: Measures 5.1 x 9.5cm. Normal echogenicity. No calculus, mass, or hydronephrosis. SPLEEN: Normal in size and contour. No mass. AORTA: Obscured by overlying bowel gas. Non diagnostic assessment of the abdominal aorta. IVC: Unremarkable. OTHER FINDINGS: None. IMPRESSION: No acute findings related to/ accounting for the clinical presentation. Limitations of the current examination: Nondiagnostic study of the pancreas and aorta obscured by overlying bowel gas.
[2018-12-17] MEDS ORDERED: Enoxaparin 40 mg Syringe SC SCH (10:00)
[2018-12-17] MEDS: Enoxaparin 30 mg Syringe SC SCH (10:59)
[2018-12-17] MEDS ORDERED: Promethazine DM 6.25 mg-15 mg/5 ml Syrup PO PRN ×2 (12:57→13:07)
[2018-12-17] MEDS ORDERED: Levalbuterol 1.25 MG/3 ML Inhal Soln UD IH PRN (12:58)
--- NOTE | 2018-12-17 13:12 | US ---
HISTORY: Leg pain and swelling. Evaluate for DVT PHYSICIAN(S): Bobby Johnston MD. TECHNIQUE: Duplex sonography and color-flow Doppler with graded compression were used to evaluate the deep venous systems of both lower extremities. FINDINGS: The visualized deep venous systems of both lower extremities are sonographically normal and compressible. Normal wave forms and augmentation are seen. There is no sonographic evidence for deep venous thrombosis in the visualized segments of both lower extremities. IMPRESSION: No sonographic evidence for deep venous thrombosis in the visualized segments of both lower extremities. Limited study. The tibial veins are not well seen due to body habitus and edema
--- NOTE | 2018-12-17 13:47 | CP.PCM.PN ---
Subjective - Date & Time of Evaluation Date of Evaluation: 12/17/18 Time of Evaluation: 13:42 - Subjective Subjective: Nephrology Consultation Note: Assessment: stable JACINTO likely hemodynamic, pre-renal and low Bp related Diabetic chronic Kidney Disease (E11.22) Chronic Kidney Disease (N18.3) Stage 3 without proteinuria (R80.9) stable Anemia (D64.9), obesity, knee OA Back pain Kidney stone Acidosis Hypotension ? etiology Plan No acute need for renal replacement therapy at this time. Maintain hemodynamics stable. Avoid hypotension. Patient not on ACEI/ARB due to recent JACINTO and low BP Monitor Input/Output, daily weights and renal function with basic metabolic panel continue with IVF Increased sodium bicarb back pain work up ongoing. unlikley to be renal related will check renin/leilani and cortisol to asses ? adrenal hypofunction if its cause for her bp Dose meds/antibiotics for reduced GFR. Avoid fleets enema/magnesium based laxatives. Avoid nephrotoxins/NSAIDs/ iodinated contrast (unless needed emerge ntly) Glycemic control Further work up/management as per primary team Thanks for allowing me to participate in care of your patient. Will follow patient with you. Please call if any Qs. had d/w team Dr Jeramy Zayas Office: [phone] ROS: c/o low back pain denies CP/SOB. no urine complaints except smell associated with it Physical Examination: General Appearance: Comfortable, in no acute respiratory distress, co-operative . obese Vitals reviewed and noted as below Head; Atraumatic, normocephalic ENT: no ulcers no thrush. Tongue is midline. Oropharynx: no rash or ulcers. EYES: Pupils are equal, round and reactive to light accommodation. Eye muscles and extraocular movement intact. Sclera is anicteric. Neck; supple no lymphadenopathy, no thyromegaly or bruit Lungs: Normal respiratory rate/effort. Breath sounds bilateral equal and clear Heart: Normal rate. s1s2 normal. No rub or gallop. Extremities: no pitting edema. No varicose veins Neurological: Patient is alert, awake and oriented to person, place and time. No focal deficit. Strength bilateral appropriate and equal Skin: Warm and dry. Normal turgor. No rash. Palpitation: Normal elasticity for age Abdomen: Abdomen is soft. Bowel sounds +. There is no abdominal tenderness, no guarding/rigidity no organomegaly Psych: normal insight and normal affect/mood MSK: Digits and nails normal, no deformity : kidney or bladder not palpable Labs/imaging reviewed. Past medical history, past surgical history, family history, social history, allergy reviewed and noted as below Family hx: no hx of CKD. Rest non-contributory UA no protein, SG >1.030 renal imaging left kidney 3 mm calculi non-obs Objective - Vital Signs/Intake and Output Vital Signs (last 24 hours): Temp Pulse Resp BP Pulse Ox 98.2 F 74 20 94/46 L 92 L 12/17/18 06:00 12/17/18 06:00 12/17/18 06:00 12/17/18 06:00 12/17/18 06:00 - Medications Medications: Current Medications Aspirin (Ecotrin) 81 mg PO DAILY [facility] Last Admin: 12/17/18 10:59 Dose: 81 mg Atorvastatin Calcium (Lipitor) 10 mg PO HS [facility] Last Admin: 12/16/18 21:38 Dose: 10 mg Enoxaparin Sodium (Lovenox) 30 mg SC DAILY [facility] Last Admin: 12/17/18 10:59 Dose: 30 mg Famotidine (Pepcid) 40 mg PO DAILY [facility] Last Admin: 12/17/18 10:59 Dose: 40 mg Home Med (Home Med) 1 unit PO 1400 [facility] Sodium Chloride (Sodium Chloride 0.9%) 1,000 mls @ 80 mls/hr IV .[id number] [facility] Last Admin: 12/17/18 04:01 Dose: 80 mls/hr Insulin Human Regular (Humulin R Low) 0 units SC ACHS [facility]; Protocol Last Admin: 12/17/18 08:48 Dose: Not Given Levalbuterol HCl (Xopenex) 1.25 mg IH [id number] PRN PRN Reason: Shortness of Breath Levothyroxine Sodium (Synthroid) 25 mcg PO ACB [facility] Last Admin: 12/17/18 08:36 Dose: 25 mcg Ondansetron HCl (Zofran Inj) 4 mg IVP Q4H PRN PRN Reason: Nausea/Vomiting Last Admin: 12/16/18 11:32 Dose: 4 mg Oxycodone HCl (Oxycodone Immediate Release Tab) 5 mg PO Q6H PRN PRN Reason: Pain, severe (8-10) Last Admin: 12/16/18 04:20 Dose: 5 mg Oxycodone/Acetaminophen (Percocet 5/325 Mg Tab) 1 tab PO TID PRN PRN Reason: Pain, moderate (4-7) Stop: 12/18/18 15:48 Last Admin: 12/17/18 03:55 Dose: 1 tab Pantoprazole Sodium (Protonix Ec Tab) 20 mg PO ACB [facility] Last Admin: 12/17/18 08:36 Dose: 20 mg Promethazine HCl/Dextromethorphan (Phenergan Dm Syrup) 5 ml PO Q6H PRN PRN Reason: Cough Sennosides (Senokot Tab) 8.6 mg PO DAILY [facility] Sitagliptin Phosphate (Januvia) 25 mg PO DAILY [facility] Last Admin: 12/17/18 10:59 Dose: 25 mg Sodium Bicarbonate (Sodium Bicarbonate Tab) 1,300 mg PO TID [facility] Tizanidine HCl (Zanaflex) 2 mg PO TID [facility] Last Admin: 12/17/18 10:59 Dose: 2 mg - Labs Labs: 12/15/18 12:00 12/17/18 07:00
[2018-12-17] MEDS ORDERED: Home Med 1 UNIT PO SCH ×2 (14:00)
--- NOTE | 2018-12-17 14:05 | MRI ---
Date of service: 12/17/2018 PROCEDURE: MR LUMBAR SPINE WITHOUT CONTRAST HISTORY: Back pain COMPARISON: None available. TECHNIQUE: Multiecho multiplanar sequences were performed through the lumbar spine without the use of intravenous contrast. FINDINGS: Normal lumbar lordosis. Vertebral body heights are preserved. Marrow signal unremarkable. Conus medullaris unremarkable at the level of L1 Paraspinal soft tissues are unremarkable. T12-L1: No disc herniation, spinal canal stenosis or neural foraminal narrowing. L1-2: No disc herniation, spinal canal stenosis or neural foraminal narrowing. L2-3: No disc herniation, spinal canal stenosis or neural foraminal narrowing. L3-4: No disc herniation, spinal canal stenosis or neural foraminal narrowing. L4-5: No disc herniation, spinal canal stenosis or neural foraminal narrowing. L5-S1: There is a small right lateral disc protrusion at L5-S1 extending into the neural foramen. OTHER FINDINGS: None. IMPRESSION: There is a small right lateral disc protrusion at L5-S1 extending into the neural foramen.
--- NOTE | 2018-12-17 14:18 | PN ---
DATE: 12/16/2018 SUBJECTIVE: The patient still complains of severe back pain. She also complained of left hip pain. She did also have some nausea and vomited today, on 12/15/2018. PHYSICAL EXAMINATION: VITAL SIGNS: Temperature 97.5, heart rate 64, blood pressure 92/49, respirations 20, saturations 95% on room air. HEAD AND NECK: Normal. No JVD. No thyromegaly. CHEST: Clear, bilateral. CARDIAC: First sound and second sound normal. No murmur, rub, or gallop. ABDOMEN: Obese. There is mild general tenderness in the abdomen. EXTREMITIES: No edema. NEUROLOGIC: Normal, except restricted low back movement in all directions. LABORATORY DATA: Laboratory studies ordered. Her blood sugar was running in 100. Basic metabolic panel was ordered for tomorrow. IMPRESSION AND PLAN: 1. Severe intractable back pain. Continue current physical therapy. Continue pain management and neurology consultations . The patient will get an magnetic resonance imaging of her lumbosacral area rehab. 2. Acute renal insufficiency, acute renal injury, acute kidney injury. We will get the renal consult, . Continue intravenous fluids for now. 3. Hypertension. She is off any blood pressure medications. We need to get her cortisol level in the morning. Etiology of the low blood pressure unclear. We will continue intravenous fluids for now. 4. Diabetes, hypercholesterolemia, hypothyroidism. Continue current medications and follow up closely. 5. Nausea and vomiting, etiology unclear. She did have mild gastrointestinal tenderness GI consult, Dr. Dumont gave her Zofran Pepcid 40 and follow up with GI on that case. Continue current management. We will repeat labs in the morning. Isac Kendrick MD
[2018-12-17] MEDS ORDERED: POLYETHYLENE GLYCOL 3350 17 GM/Dose PACKET PO SCH (18:00)
--- NOTE | 2018-12-17 19:10 | HP ---
DATE OF EXAM: 12/15/2018 CHIEF COMPLAINT: The patient came in. Main complaint is severe low back pain. HISTORY OF PRESENT ILLNESS: This is a 58-year-old female with multiple medical problems including diabetes, hypertension, obesity, obstructive sleep apnea, chronic back pain, with multiple degenerative disc disease in the lumbosacral and the neck area. The patient has history of renal insufficiency in the past and osteoarthritis of her knee, came in because of low back pain that seems getting worse, severe, cannot do much at home, could not get out of the bed, could not function at home. Pain is severe enough 10 out of 10, but . The patient came in because of severe intractable back pain and needs further management. She has no fever, no chills, no dysuria, no burning urinations, no other complaint. The patient also found to have blood pressure running in the 90s to 80s systolic. Also noted a creatinine is 2.5 which is new. PAST MEDICAL HISTORY: The patient had a history of insulin-dependent diabetes for years, she does have history of hypothyroidism, hypercholesterolemia, osteoarthritis, diabetes, acid reflux, chronic constipation, osteoporosis, and gouty arthritis. HOME MEDICATIONS: According to her, she takes oxycodone, Pravachol 40 mg, Synthroid 25 mcg, aspirin, Januvia 100 mg, Protonix 40 mg, methenamine hippurate, Linzess 290 mcg, vitamin D, bisoprolol, and allopurinol 100 mg once a day. ALLERGIES: SHE IS ALLERGIC TO APPLE. REVIEW OF SYSTEMS: She does have chronic back pain intermittently, getting worse; knee arthritis, difficulty ambulation, and no energy. She has difficulty also problem with vision, her vision is diminished. History of chronic headache, intermittently comes and goes. Constipation on and off. PHYSICAL EXAMINATION: For 12/15/2018 is as follows; VITAL SIGNS: Temperature is 97.5, heart rate 75, blood pressure 88/56, respirations 20, and saturation 98% on room air. HEAD AND NECK: Normal. No JVD. No thyromegaly. CHEST: Clear bilaterally. CARDIAC: First sound and second sound normal. No murmur, rub, or gallop. ABDOMEN: Obese and nontender. EXTREMITIES: No edema. NEUROLOGIC: The patient has positive straight leg raising test and she has tender lower lumbosacral area with decreased range of motion in all directions. LABORATORY DATA: She has white count 11, hemoglobin 12.3, hematocrit 40.8, and platelets 282. Chemistry on 12/15/2018 shows sodium 143, potassium 4.7, chloride 115, bicarb 15, BUN 59, creatinine 2.5, blood sugar 119, calcium 10, total bilirubin 0.3, AST normal, ALT normal, and alk phos is normal. Total protein 8.8, blood sugar is in 100 range. Also the patient had a urinalysis which was negative. The patient had a head CT which was negative for rear bleed and she also had electrocardiogram which was normal sinus rhythm with sinus arrhythmia. Normal EKG, normal QT. I do not see a chest x-ray. IMPRESSION AND PLAN 1. This is 58-year-old female with obesity and diabetes, came in with severe intractable back pain. She does have history of severe osteoarthritis of her back in the past and we will admit the patient for severe low intractable back pain. Continue pain medications. She is getting oxycodone p.r.n. We will get Neurology consultation, give her muscle relaxant and physical therapy. 2. Hypertension. We will continue IV fluid; we will get the pressure to a 100 range, above 90. 3. Acute renal insufficiency. Worsening of her kidney functions. Continue IV fluid. Get renal consult. 4. Diabetes and hypercholesterolemia. Continue insulin coverage. Continue Lipitor. Follow up clinically. Continue aspirin 81 mg daily and follow up clinically. Isac Kendrick MD
--- NOTE | 2018-12-17 22:45 | PN ---
DATE: 12/17/2018 SUBJECTIVE: The patient denies any chest pain or shortness of breath. PHYSICAL EXAMINATION: VITAL SIGNS: Blood pressure 94/46, heart rate 74, temperature 98.2, respirations 20. HEENT: Normocephalic. CHEST: Clear. HEART: S1, S2, regular. EXTREMITIES: Trace leg edema. LABORATORY DATA: Rheumatoid factor is negative. CASSIE profile is pending. Today's SMA-7: Sodium 142, potassium 5, chloride 121, CO2 of 16, glucose 94, BUN 49, creatinine 2.3. Venous Doppler lower extremity, no sonographic evidence for DVT in the visualized segments. Limited study. Tibial veins are not well visualized. Lumbar spinal canal MRI without contrast. There is small right lateral disk protrusion at L5-S1 extending into the neural foramen. ASSESSMENT: 1. Systemic hypertension. 2. Worsening renal insufficiency. 3. Morbid obesity. 4. Mild pulmonary hypertension. 5. Chronic back pain. 6. Small right lateral disk protrusion at L5-S1 extending into the neural foramen on the recent lumbar spine MRI without contrast. RECOMMENDATIONS: Continue aspirin 81 mg once a day, Januvia 25 mg once a day, Lipitor 10 mg once a day, Lovenox 30 mg subcutaneous once a day, Synthroid 25 mcg once a day. Shahid Hartman MD
[2018-12-18] MEDS: oxyCODONE 15 mg Immediate Release Tab PO PRN (01:53)
[2018-12-18 08:04] LABS: CALCIUM 8.9 mg/dL (8.4-10.5); URIC ACID 7.8 mg/dL (2.5-6.2)
[2018-12-18] MEDS: Oxycodone/Acetaminophen 5/325 mg Tab PO PRN (08:19)
[2018-12-18] MEDS: Pantoprazole 20 mg EC Tab PO SCH (08:19)
[2018-12-18] MEDS: Levothyroxine 25 MCG TAB PO SCH (08:20)
--- NOTE | 2018-12-18 08:22 | CP.PCM.PN ---
<Deisy Umana - Last Filed: 12/18/18 10:52> Subjective - Date & Time of Evaluation Date of Evaluation: 12/18/18 Time of Evaluation: 08:18 - Subjective Subjective: Deisy Umana, PGY2, GI Progress Note for Dr Dumont: Patient seen and examined at bedside. No acute events overnight. Patient reports constant, achy epigastric pain, rates it 7/10, nonradiating. Denies nausea, vomiting. Reports that her last meal was yesterday afternoon for lunch. However, patient did not have much of an appetite for dinner and skipped meal then. Patient states that she has some appetite this morning and will try pureed diet. Reports large BM yesterday afternoon. Reports ongoing back pain. Objective - Vital Signs/Intake and Output Vital Signs (last 24 hours): Temp Pulse Resp BP Pulse Ox 97.6 F 68 18 102/57 L 96 12/18/18 06:00 12/18/18 06:00 12/18/18 06:00 12/18/18 06:00 12/18/18 06:00 - Medications Medications: Current Medications Aspirin (Ecotrin) 81 mg PO DAILY [facility] Last Admin: 12/17/18 10:59 Dose: 81 mg Atorvastatin Calcium (Lipitor) 40 mg PO DIN TINO Enoxaparin Sodium (Lovenox) 30 mg SC DAILY [facility] Last Admin: 12/17/18 10:59 Dose: 30 mg Famotidine (Pepcid) 40 mg PO DAILY [facility] Last Admin: 12/17/18 10:59 Dose: 40 mg Home Med (Home Med) 1 unit PO 1400 [facility] Sodium Chloride (Sodium Chloride 0.9%) 1,000 mls @ 80 mls/hr IV .[id number] [facility] Last Admin: 12/17/18 19:45 Dose: 80 mls/hr Insulin Human Regular (Humulin R Low) 0 units SC [facility]; Protocol Last Admin: 12/17/18 22:05 Dose: Not Given Levalbuterol HCl (Xopenex) 1.25 mg IH [id number] PRN PRN Reason: Shortness of Breath Levothyroxine Sodium (Synthroid) 25 mcg PO ACB [facility] Last Admin: 12/17/18 08:36 Dose: 25 mcg Ondansetron HCl (Zofran Inj) 4 mg IVP Q4H PRN PRN Reason: Nausea/Vomiting Last Admin: 12/16/18 11:32 Dose: 4 mg Oxycodone HCl (Oxycodone Immediate Release Tab) 5 mg PO Q6H PRN PRN Reason: Pain, severe (8-10) Last Admin: 12/18/18 01:53 Dose: 5 mg Oxycodone/Acetaminophen (Percocet 5/325 Mg Tab) 1 tab PO TID PRN PRN Reason: Pain, moderate (4-7) Stop: 12/18/18 15:48 Last Admin: 12/17/18 18:04 Dose: 1 tab Pantoprazole Sodium (Protonix Ec Tab) 20 mg PO ACB [facility] Last Admin: 12/17/18 08:36 Dose: 20 mg Promethazine HCl/Dextromethorphan (Phenergan Dm Syrup) 5 ml PO Q6H PRN PRN Reason: Cough Sennosides (Senokot Tab) 8.6 mg PO DAILY [facility] Last Admin: 12/17/18 13:38 Dose: 8.6 mg Sitagliptin Phosphate (Januvia) 25 mg PO DAILY [facility] Last Admin: 12/17/18 10:59 Dose: 25 mg Sodium Bicarbonate (Sodium Bicarbonate Tab) 1,300 mg PO TID [facility] Last Admin: 12/17/18 17:59 Dose: 1,300 mg Tizanidine HCl (Zanaflex) 2 mg PO TID [facility] Last Admin: 12/17/18 17:59 Dose: 2 mg - Labs Labs: 12/15/18 12:00 12/18/18 07:00 - Additional Findings Additional findings: - Constitutional Appears: Non-toxic, No Acute Distress - Head Exam Head Exam: ATRAUMATIC, NORMOCEPHALIC - Eye Exam Eye Exam: EOMI, PERRL. absent: Conjunctival injection, Nystagmus, Scleral icterus Pupil Exam: NORMAL ACCOMODATION, PERRL. absent: Irregular, Miosis, Mydriatic, Unequal - ENT Exam ENT Exam: Mucous Membranes Moist - Neck Exam Neck Exam: Full ROM - Respiratory Exam Respiratory Exam: Clear to Ausculation Bilateral, NORMAL BREATHING PATTERN. absent: Accessory Muscle Use, Rhonchi, Wheezes, Stridor - Cardiovascular Exam Cardiovascular Exam: +S1, +S2. absent: Murmur - GI/Abdominal Exam GI & Abdominal Exam: Soft, Normal Bowel Sounds, + diffuse tenderness on deep palpation, more in epigastric region. absent: Distended, Guarding, Rigid, Mass - Extremities Exam Extremities Exam: Normal Inspection. absent: Calf Tenderness, Pedal Edema - Back Exam Back Exam: NORMAL INSPECTION - Neurological Exam Neurological Exam: Alert, Awake, Oriented x3 - Psychiatric Exam Psychiatric exam: Normal Affect, Normal Mood - Skin Skin Exam: Dry, Normal Color, Warm Assessment and Plan - Assessment and Plan (Free Text) Assessment: This is a 58 year old female with PMH DM, HTN, obesity, osteoarthritis, is here for chronic back pain. GI consulted for nausea, vomitin. Nausea, vomiting 2/2 likely gastroparesis vs esophagitis vs gastroenteritis vs chronic constipation 2. Chronic constipation 2/2 IBS, opioid medication induced 3. JACINTO on CKD 4. History of hypothyroidism, gastroparesis, HTN 5. Acute exacerbation of chronic back pain - Recommend continuing zofran as needed for nausea. - continue with pureed diet. - if does not improve, consider EGD - continue with home Linzess and sennosides for constipation. Will monitor bowel movements. - Cr trending down, nephro on board. - c/w pain management as per primary team. - will monitor Discussed case with Dr Dumont. <Christina Dumont V - Last Filed: 12/18/18 23:35> Objective - Vital Signs/Intake and Output Vital Signs (last 24 hours): Temp Pulse Resp BP Pulse Ox 98.5 F 81 20 85/52 L 95 12/18/18 22:42 12/18/18 22:42 12/18/18 22:42 12/18/18 22:42 12/18/18 22:42 - Medications Medications: Current Medications Aspirin (Ecotrin) 81 mg PO DAILY [facility] Last Admin: 12/18/18 10:16 Dose: 81 mg Atorvastatin Calcium (Lipitor) 40 mg PO DIN [facility] Last Admin: 12/18/18 17:48 Dose: 40 mg Cosyntropin (Cortrosyn) 0.25 mg IV ONCE ONE Stop: 12/19/18 07:01 Enoxaparin Sodium (Lovenox) 30 mg SC DAILY [facility] Last Admin: 12/18/18 10:13 Dose: 30 mg Famotidine (Pepcid) 20 mg PO HS [facility] Last Admin: 12/18/18 21:24 Dose: 20 mg Home Med (Home Med) 1 unit PO 1400 [facility] Last Admin: 12/18/18 13:31 Dose: 1 unit Sodium Chloride (Sodium Chloride 0.9%) 1,000 mls @ 80 mls/hr IV .[id number] [facility] Last Admin: 12/18/18 21:29 Dose: 80 mls/hr Insulin Human Regular (Humulin R Low) 0 units SC ACHS [facility]; Protocol Last Admin: 12/18/18 17:34 Dose: Not Given Levalbuterol HCl (Xopenex) 1.25 mg IH [id number] PRN PRN Reason: Shortness of Breath Levothyroxine Sodium (Synthroid) 25 mcg PO ACB [facility] Last Admin: 12/18/18 08:20 Dose: 25 mcg Ondansetron HCl (Zofran Inj) 4 mg IVP Q4H PRN PRN Reason: Nausea/Vomiting Last Admin: 12/16/18 11:32 Dose: 4 mg Oxycodone HCl (Oxycodone Immediate Release Tab) 10 mg PO Q6H PRN PRN Reason: Pain, severe (8-10) Pantoprazole Sodium (Protonix Ec Tab) 20 mg PO ACB [facility] Last Admin: 12/18/18 08:19 Dose: 20 mg Pregabalin (Lyrica) 50 mg PO BID [facility] Last Admin: 12/18/18 18:54 Dose: 50 mg Promethazine HCl/Dextromethorphan (Phenergan Dm Syrup) 5 ml PO Q6H PRN PRN Reason: Cough Sennosides (Senokot Tab) 8.6 mg PO DAILY [facility] Last Admin: 12/18/18 10:14 Dose: 8.6 mg Sitagliptin Phosphate (Januvia) 25 mg PO DAILY [facility] Last Admin: 12/18/18 10:15 Dose: 25 mg Sodium Bicarbonate (Sodium Bicarbonate Tab) 1,300 mg PO TID [facility] Last Admin: 12/18/18 20:08 Dose: Not Given Tizanidine HCl (Zanaflex) 2 mg PO TID [facility] Last Admin: 12/18/18 20:11 Dose: 2 mg - Labs Labs: 12/15/18 12:00 12/18/18 07:00 Attending/Attestation - Attestation I have personally seen and examined this patient.: Yes I have fully participated in the care of the patient.: Yes I have reviewed all pertinent clinical information, including history, physical exam and plan: Yes Notes (Text): This is an addendum to the GI progress report dictated by the medical director. The patient was seen and evaluated here earlier along with the resident. Patien t still complains of nausea. Acute kidney injury acute worsening of the renal function. Patient does have symptomatic reflux and failed weaning of PPI. History of gastroparesis partly contributed to his nausea,history of erosive esophagitis continue PPI Patient is on pured diet advised to continue that increase fluid intake Renal follow-up 12/18/18 23:32
[2018-12-18] MEDS: Insulin Reg-LOW-Coverage SC SCH ×4 (08:59→22:00)
[2018-12-18] MEDS: Enoxaparin 30 mg Syringe SC SCH (10:13)
--- NOTE | 2018-12-18 12:09 | CP.PCM.PN ---
Subjective - Date & Time of Evaluation Date of Evaluation: 12/18/18 Time of Evaluation: 12:09 - Subjective Subjective: Nephrology Consultation Note: Assessment: stable JACINTO likely hemodynamic, pre-renal and low Bp related Diabetic chronic Kidney Disease (E11.22) Chronic Kidney Disease (N18.3) Stage 3 without proteinuria (R80.9) stable Anemia (D64.9), obesity, knee OA Back pain Kidney stone Acidosis Hypotension ? etiology Plan No acute need for renal replacement therapy at this time. Maintain hemodynamics stable. Avoid hypotension. Patient not on ACEI/ARB due to recent JACINTO and low BP Monitor Input/Output, daily weights and renal function with basic metabolic panel continue with IVF Increased sodium bicarb back pain work up ongoing. unlikely to be renal related will check renin/leilani and cortisol to asses ? adrenal hypofunction if its cause for her bp. low cortisol level noted. will request endocrine eval Dose meds/antibiotics for reduced GFR. Avoid fleets enema/magnesium based laxatives. Avoid nephrotoxins/NSAIDs/ iodinated contrast (unless needed emergently) Glycemic control Further work up/management as per primary team Thanks for allowing me to participate in care of your patient. Will follow patient with you. Please call if any Qs. had d/w team Dr Jeramy Zayas Office: [phone] ROS: c/o low back pain denies CP/SOB. no urine complaints except smell associated with it Physical Examination: General Appearance: Comfortable, in no acute respiratory distress, co-operative . obese Vitals reviewed and noted as below Head; Atraumatic, normocephalic ENT: no ulcers no thrush. Tongue is midline. Oropharynx: no rash or ulcers. EYES: Pupils are equal, round and reactive to light accommodation. Eye muscles and extraocular movement intact. Sclera is anicteric. Neck; supple no lymphadenopathy, no thyromegaly or bruit Lungs: Normal respiratory rate/effort. Breath sounds bilateral equal and clear Heart: Normal rate. s1s2 normal. No rub or gallop. Extremities: no pitting edema. No varicose veins Neurological: Patient is alert, awake and oriented to person, place and time. No focal deficit. Strength bilateral appropriate and equal Skin: Warm and dry. Normal turgor. No rash. Palpitation: Normal elasticity for age Abdomen: Abdomen is soft. Bowel sounds +. There is no abdominal tenderness, no guarding/rigidity no organomegaly Psych: normal insight and normal affect/mood MSK: Digits and nails normal, no deformity : kidney or bladder not palpable Labs/imaging reviewed. Past medical history, past surgical history, family history, social history, allergy reviewed and noted as below Family hx: no hx of CKD. Rest non-contributory UA no protein, SG >1.030 renal imaging left kidney 3 mm calculi non-obs Objective - Vital Signs/Intake and Output Vital Signs (last 24 hours): Temp Pulse Resp BP Pulse Ox 97.6 F 68 18 102/57 L 96 12/18/18 06:00 12/18/18 06:00 12/18/18 06:00 12/18/18 06:00 12/18/18 06:00 - Medications Medications: Current Medications Aspirin (Ecotrin) 81 mg PO DAILY [facility] Last Admin: 12/18/18 10:16 Dose: 81 mg Atorvastatin Calcium (Lipitor) 40 mg PO DIN [facility] Enoxaparin Sodium (Lovenox) 30 mg SC DAILY [facility] Last Admin: 12/18/18 10:13 Dose: 30 mg Famotidine (Pepcid) 40 mg PO DAILY [facility] Last Admin: 12/18/18 10:16 Dose: 40 mg Home Med (Home Med) 1 unit PO 1400 [facility] Sodium Chloride (Sodium Chloride 0.9%) 1,000 mls @ 80 mls/hr IV .[id number] [facility] Last Admin: 12/17/18 19:45 Dose: 80 mls/hr Insulin Human Regular (Humulin R Low) 0 units SC ACHS [facility]; Protocol Last Admin: 12/18/18 11:57 Dose: Not Given Levalbuterol HCl (Xopenex) 1.25 mg IH [id number] PRN PRN Reason: Shortness of Breath Levothyroxine Sodium (Synthroid) 25 mcg PO ACB [facility] Last Admin: 12/18/18 08:20 Dose: 25 mcg Ondansetron HCl (Zofran Inj) 4 mg IVP Q4H PRN PRN Reason: Nausea/Vomiting Last Admin: 12/16/18 11:32 Dose: 4 mg Oxycodone HCl (Oxycodone Immediate Release Tab) 5 mg PO Q6H PRN PRN Reason: Pain, severe (8-10) Last Admin: 12/18/18 01:53 Dose: 5 mg Oxycodone/Acetaminophen (Percocet 5/325 Mg Tab) 1 tab PO TID PRN PRN Reason: Pain, moderate (4-7) Stop: 12/18/18 15:48 Last Admin: 12/18/18 08:19 Dose: 1 tab Pantoprazole Sodium (Protonix Ec Tab) 20 mg PO ACB [facility] Last Admin: 12/18/18 08:19 Dose: 20 mg Promethazine HCl/Dextromethorphan (Phenergan Dm Syrup) 5 ml PO Q6H PRN PRN Reason: Cough Sennosides (Senokot Tab) 8.6 mg PO DAILY [facility] Last Admin: 12/18/18 10:14 Dose: 8.6 mg Sitagliptin Phosphate (Januvia) 25 mg PO DAILY [facility] Last Admin: 12/18/18 10:15 Dose: 25 mg Sodium Bicarbonate (Sodium Bicarbonate Tab) 1,300 mg PO TID [facility] Last Admin: 12/17/18 17:59 Dose: 1,300 mg Tizanidine HCl (Zanaflex) 2 mg PO TID [facility] Last Admin: 12/18/18 10:23 Dose: 2 mg - Labs Labs: 12/15/18 12:00 12/18/18 07:00
[2018-12-18] MEDS: LINACLOTIDE 290 MCG PO SCH (13:31)
--- NOTE | 2018-12-18 13:40 | PN ---
DATE: 12/18/2018 SUBJECTIVE: The patient is stable. She is still complaining of significant low back pain. The patient still runs low blood pressures and still monitoring her kidney functions. PHYSICAL EXAMINATION: VITAL SIGNS: Temperature 98.1, her blood pressure runs at 94/46, respirations 20, saturating 97% on room air. HEAD AND NECK: Examination is normal. No JVD. No thyromegaly. CHEST: Clear bilateral. CARDIAC: First sound and second sound normal. No murmur, rub, or gallop. ABDOMEN: Soft, obese, nontender. EXTREMITIES: No edema. NEUROLOGIC: Normal. LABORATORY STUDY: She did have sed rate of 79. The patient also had blood sugar that runs in the 100 range. Her chemistry shows sodium 142, potassium 5, chloride 121, bicarb 16, BUN 49, creatinine 2.3, blood sugar 94, calcium 8.7. Cortisol level was done and it was low at 2. IMPRESSION AND PLAN: 1. Hypotension. We will continue IV fluid. We will discuss with Nephrology about hypoalbuminemia level possibly. Cortisol is 2, very low. We will monitor. Maybe the patient will get an Endocrine consult to evaluate her renal insufficiency. She is diabetic. 2. Acute renal failure, worsening of chronic renal insufficiency. Continue IV fluid. We will repeat chemistry in the morning. 3. Severe intractable low back pain. Continue current pain management and consider MRI of her lumbosacral. She had done with no contrast and we will probably need epidural injections depending on the result of the MRI. 4. The patient has high sedimentation rate. She did not have this before with her headache symptoms. She got a temporal artery biopsy, which according to her came back negative in the past. 5. Diabetes. Continue insulin coverage. 6. Hypothyroidism, hypercholesterolemia. Continue current medications for now. 7. The patient has some abdominal discomfort, pain and vomiting. At this time, continue Protonix, Pepcid and Zofran. 8. Follow up with Gastroenterology consult. 9. Continue physical therapy and follow up with other consultants. Isac Kendrick MD
[2018-12-18] MEDS ORDERED: oxyCODONE 5 mg Immediate Release Tab PO PRN (15:39)
--- NOTE | 2018-12-18 15:56 | PN ---
DATE: 12/18/2018 SUBJECTIVE: The patient denies any chest pain. She still complains of left leg pain. PHYSICAL EXAMINATION: VITAL SIGNS: Blood pressure 102/57, heart rate 68, temperature 97.6, and respiration 18. HEENT: Normocephalic. CHEST: Clear. HEART: S1 and S2 regular. EXTREMITIES: Trace leg edema. LABORATORY DATA: Today's SMA-7; sodium 143, potassium 5, chloride 118, CO2 of 19, glucose 88, BUN 46, creatinine 2.2. ASSESSMENT: 1. Hypertension and hyperlipidemia. 2. Worsening renal insufficiency. 3. Consider underlying gastroparesis. 4. Obesity. 5. Hypothyroidism. RECOMMENDATIONS: Continue current aspirin 81 mg once a day, Lipitor 20 mg once a day, subcutaneous Lovenox 30 mg once a day, Percocet 1 tablet three times a day p.r.n., Phenergan DM 5 mL every 6 hours, Synthroid 25 mg daily, and Xopenex inhaler. The patient may be considered for upper endoscopy. Shahid Hartman MD
--- NOTE | 2018-12-18 18:30 | CARD ---
APPROVED REPORT Date of service: 12/18/2018 EXAM: Two-dimensional and M-mode echocardiogram with Doppler and color Doppler. INDICATION Hypertension/HCVD 2D DIMENSIONS Left Atrium (2D)4.3 (1.6-4.0cm)IVSd0.8 (0.7-1.1cm) LVDd4.5 (3.9-5.9cm)PWd1.1 (0.7-1.1cm) LVDs3.2 (2.5-4.0cm)FS (%) 29.4 % LVEF (%)56.5 (>50%) M-Mode DIMENSIONS Aortic Root3.00 (2.2-3.7cm)Aortic Cusp Exc.1.90 (1.5-2.0cm) Aortic Valve AoV Peak Gvuunktb327.0cm/Tee Peak GR.7mmHg Mitral Valve MV E Cnuailge322.0cm/sMV A Anybbqhr62.3cm/sE/A ratio1.3 TDI Lateral E' Peak V11.90cm/sMedial E' Peak V10.50cm/sE/Lateral E'9.9 E/Medial E'11.2 Pulmonary Valve PV Peak Hdqpuluo72.7cm/sPV Peak Grad.1mmHg Tricuspid Valve TR Peak Bobkqnpl344mh/sRAP [id number] Peak Gr.28mmHg [id number] LEFT VENTRICLE The left ventricle is normal size. There is normal left ventricular wall thickness. The left ventricular function is normal. The left ventricular ejection fraction is within the normal range. There is normal LV segmental wall motion. The left ventricular diastolic function is normal. RIGHT VENTRICLE The right ventricle is normal size. There is normal right ventricular wall thickness. The right ventricular systolic function is normal. ATRIA The left atrium is borderline dilated. The right atrium is borderline dilated. AORTIC VALVE The aortic valve is normal in structure. No aortic regurgitation is present. There is no aortic valvular stenosis. MITRAL VALVE The mitral valve is normal in structure. There is no mitral valve regurgitation noted. There is no mitral valve stenosis. TRICUSPID VALVE There is mild tricuspid regurgitation. There is mild pulmonary hypertension. PULMONIC VALVE There is mild pulmonic valvular regurgitation. GREAT VESSELS The aortic root is normal in size. The IVC is normal in size and collapses >50% with inspiration. PERICARDIAL EFFUSION There is no pericardial effusion. <Conclusion> There is normal left ventricular wall thickness. The left ventricular function is normal. The left ventricular ejection fraction is within the normal range. There is normal LV segmental wall motion. The left ventricular diastolic function is normal. There is mild tricuspid regurgitation. There is mild pulmonary hypertension.
--- NOTE | 2018-12-18 19:12 | PN ---
DATE: 12/18/2018 NEUROLOGY FOLLOWUP CHIEF COMPLAINT: Follow up for low back pain. SUBJECTIVE: The patient still has low back pain and is on opioid therapy. MRI of the lumbosacral spine was reviewed and has small right lateral disk protrusion at L5-S1 extending to the neural foramen which can cause back pain as well. She is on Zanaflex and oxycodone. You could consider Lyrica 50 mg p.o. b.i.d. which could help with neuropathic relief and she will need outpatient epidural injection and outpatient physical therapy for low back pain. PAST MEDICAL HISTORY: History of type 2 diabetes mellitus, hypertension, obesity, osteoarthritis, history of chronic low back pain. REVIEW OF SYSTEMS: A 14-point review of systems is negative except in the HPI. FAMILY HISTORY: Noncontributory. MEDICATIONS: Reviewed by nurse per reconciliation sheet. ALLERGIES: NO KNOWN DRUG ALLERGIES. LABORATORY DATA: Sodium is 142, potassium 5.1, chloride 118, carbon dioxide 19, BUN of 42, creatinine 2.2, random glucose 88. PHYSICAL EXAMINATION: VITAL SIGNS: Temperature 97.9, pulse rate of 82, blood pressure 104/54, respiratory rate 16, oxygen saturation 100% on room air. GENERAL: The patient is sitting up in bed, in no acute distress. HEENT: Atraumatic and normocephalic. PERRLA. Extraocular muscles intact. NECK: Supple. No JVD. No adenopathy noted. LUNGS: Clear to auscultation. No adventitious sounds. HEART: S1, S2, normal rate and rhythm. No murmurs, rubs or gallops. ABDOMEN: Soft, nontender, and nondistended. Bowel sounds present. EXTREMITIES: No clubbing. No cyanosis. Peripheral pulses 2+ bilaterally. NEUROLOGIC: The patient is alert and oriented to person, place, and year. Speech is fluent without any errors. Cranial nerves II through XII intact. Motor exam: Moves all extremities equally. Toes are downgoing on the left. Sensory exam: Decreased light touch and pinprick up to the calves bilaterally. Decreased vibration of the toes. DTRs 2+ throughout and 1 at both knees and ankles. Coordination: [id number] intact. No dysmetria noted. Musculoskeletal: Lumbosacral is present. IMPRESSION: Chronic low back pain secondary to severe osteoarthritis superimposed on musculoskeletal in addition to her right small paracentral disk protrusion at L5-S1. At this time we recommend. 1. Could consider Lyrica 50 mg p.o. twice daily for neuropathic relief. 2. Physical therapy as an outpatient for lumbosacral stretching, therapeutic exercise, myofascial pain release technique, ultrasound therapy. 3. Outpatient pain management followup for possible epidural at L5-S1 area. 4. Continue with diabetic management 140 to 180. 5. Avoid hypotensive events. Thank you for this followup.. Ronak Garcia MD
[2018-12-18] MEDS: Sodium Chloride 0.9% 1,000 ML IV SCH (21:29)
--- NOTE | 2018-12-18 22:40 | CON ---
DATE: 12/18/2018 ENDOCRINOLOGY CONSULTATION LOCATION: In room 570. HISTORY OF PRESENT ILLNESS: This is a 58-year-old female with known history of diabetes, hypertension, and underlying morbid obesity, presenting here with severe lower back pain with no apparent relief from outpatient narcotic analgesic management and is being referred now for evaluation of abnormal cortisol levels as noted. PAST MEDICAL HISTORY: As mentioned above, history of type 2 diabetes, currently on Januvia taking at 100 mg daily; history of hypertension and dyslipidemia; history of hypothyroidism, on levothyroxine at 25 mcg daily; history of lumbar disk disease and severe osteoarthritis in both the lower back and knee areas with severe and chronic low back pain and knee pain with multiple intake of narcotic analgesics with no apparent relief as noted. FAMILY HISTORY: Positive for diabetes and hypertension. SOCIAL HISTORY: The patient has a supportive family. No known substance use. REVIEW OF SYSTEMS: Admits to generalized body weakness with episodic bouts of dizziness and lightheadedness worse on the day of admission. Also admits to bifrontal headaches with visual blurring as noted. No chest pains or palpitations. Oral intake has been variable, although the patient with dyspepsia and vague upper abdominal pain. Also admits to occasional nocturia as noted. PHYSICAL EXAMINATION: GENERAL: Average obese female in no apparent distress. VITAL SIGNS: Blood pressure of 144/80, pulse of 100 beats per minute and regular, temperature 98, respirations 20, height is 5 feet 2 inches, and weight is 230 pounds. HEENT: Head; normocephalic. Eyes anicteric with pink conjunctivae. Funduscopy not possible at this time. Ears, nose and throat otherwise normal. NECK: Supple. Thyroid gland is normal in size. No carotid bruits or cervical adenopathy. CARDIOPULMONARY: Some adynamic precordium. S1 and S2 is rapid and regular. LUNGS: Clear to auscultation. ABDOMEN: Obese and soft with positive bowel sounds. EXTREMITIES: No peripheral edema. Pulses +2 bilaterally. LABORATORY DATA: Chemistries showed a BUN of 43, sodium 143, potassium 5, chloride 118, CO2 is 19, glucose is 88, and creatinine is 2.2. Her serum cortisol level is 2 mcg/dL with an albumin level of 4. Initial blood pressure levels however were elevated as noted with subsequent lowering . ASSESSMENT: This is a 58-year-old female with acute renal failure on the background of chronic kidney disease and concomitant type 2 diabetes and hypertension with near optimal metabolic control, on oral hypoglycemic therapy as given and now is being referred for evaluation of abnormal serum cortisol levels as noted. The possibility always of underlying hypoadrenalism or adrenal insufficiency has to be excluded at this time especially with constitutional symptoms as noted. PLAN OF MANAGEMENT: We will obtain Cortrosyn stimulation test, which is the best confirmatory test for primary versus secondary adrenal insufficiency as noted. Detailed orders have been given for fasting cortisol level tomorrow morning at 5 o'clock followed by administration of Cortrosyn given as 250 mcg IV push as one dose at 7 a.m. followed post 1 hour with a cortisol level once again. We will obtain serial chemistries and supplement accordingly as needed. We will also obtain serial thyroid studies accordingly. Parul Acevedo MD
[2018-12-19] MEDS: oxyCODONE 10 mg Immediate Release Tab PO PRN ×2 (01:26→09:53)
[2018-12-19 08:46] LABS: ALB/GLOB RATIO 0.8 (1.1-1.8); ALBUMIN 2.9 g/dL (3.0-4.8); ALT/SGPT < 6 U/L (7-56); AST/SGOT 16 U/L (14-36); BLOOD UREA NITROGEN 35 mg/dL (7-21); GFR NON-AFRICAN AMERICAN 29
[2018-12-19] MEDS: Insulin Reg-LOW-Coverage SC SCH ×5 (09:44→23:12)
[2018-12-19] MEDS: Enoxaparin 30 mg Syringe SC SCH (09:53)
[2018-12-19] MEDS: Pantoprazole 20 mg EC Tab PO SCH (09:56)
--- NOTE | 2018-12-19 12:52 | CARD ---
APPROVED REPORT Date of service: 12/19/2018 EKG Measurement Heart [id number] <Conclusion> Sinus rhythm with marked sinus arrhythmia Otherwise normal ECG
--- NOTE | 2018-12-19 14:13 | CP.PCM.PN ---
Subjective - Date & Time of Evaluation Date of Evaluation: 12/19/18 Time of Evaluation: 14:12 - Subjective Subjective: Nephrology Consultation Note: Assessment: stable JACINTO likely hemodynamic, pre-renal and low Bp related Diabetic chronic Kidney Disease (E11.22) Chronic Kidney Disease (N18.3) Stage 3 without proteinuria (R80.9) stable Anemia (D64.9), obesity, knee OA Back pain Kidney stone Acidosis Hypotension ? etiology Plan No acute need for renal replacement therapy at this time. Maintain hemodynamics stable. Avoid hypotension. Patient not on ACEI/ARB due to recent JACINTO and low BP Monitor Input/Output, daily weights and renal function with basic metabolic panel discontinue with IVF c/w sodium bicarb back pain work up ongoing. unlikely to be renal related will check renin/leilani and cortisol to asses ? adrenal hypofunction if its cause for her bp. low cortisol level noted. seen by endocrine, had acth stim test Dose meds/antibiotics for reduced GFR. Avoid fleets enema/magnesium based lax atives. Avoid nephrotoxins/NSAIDs/ iodinated contrast (unless needed emergently) Glycemic control Further work up/management as per primary team Thanks for allowing me to participate in care of your patient. Will follow patient with you. Please call if any Qs. had d/w team Dr Jeramy Zayas Office: [phone] ROS: c/o low back pain denies CP/SOB. no urine complaints except smell associated with it Physical Examination: General Appearance: Comfortable, in no acute respiratory distress, co-operative . obese Vitals reviewed and noted as below Head; Atraumatic, normocephalic ENT: no ulcers no thrush. Tongue is midline. Oropharynx: no rash or ulcers. EYES: Pupils are equal, round and reactive to light accommodation. Eye muscles and extraocular movement intact. Sclera is anicteric. Neck; supple no lymphadenopathy, no thyromegaly or bruit Lungs: Normal respiratory rate/effort. Breath sounds bilateral equal and clear Heart: Normal rate. s1s2 normal. No rub or gallop. Extremities: no pitting edema. No varicose veins Neurological: Patient is alert, awake and oriented to person, place and time. No focal deficit. Strength bilateral appropriate and equal Skin: Warm and dry. Normal turgor. No rash. Palpitation: Normal elasticity for age Abdomen: Abdomen is soft. Bowel sounds +. There is no abdominal tenderness, no guarding/rigidity no organomegaly Psych: normal insight and normal affect/mood MSK: Digits and nails normal, no deformity : kidney or bladder not palpable Labs/imaging reviewed. Past medical history, past surgical history, family history, social history, allergy reviewed and noted as below Family hx: no hx of CKD. Rest non-contributory UA no protein, SG >1.030 renal imaging left kidney 3 mm calculi non-obs Objective - Vital Signs/Intake and Output Vital Signs (last 24 hours): Temp Pulse Resp BP Pulse Ox 98.3 F 73 18 128/57 L 97 12/19/18 06:00 12/19/18 06:00 12/19/18 06:00 12/19/18 06:00 12/19/18 06:00 Intake and Output: 12/19/18 12/19/18 06:59 18:59 Intake Total 120 Balance 120 - Medications Medications: Current Medications Aspirin (Ecotrin) 81 mg PO DAILY [facility] Last Admin: 12/19/18 09:53 Dose: 81 mg Atorvastatin Calcium (Lipitor) 40 mg PO DIN [facility] Last Admin: 12/18/18 17:48 Dose: 40 mg Enoxaparin Sodium (Lovenox) 30 mg SC DAILY [facility] Last Admin: 12/19/18 09:53 Dose: 30 mg Famotidine (Pepcid) 20 mg PO HS [facility] Last Admin: 12/18/18 21:24 Dose: 20 mg Home Med (Home Med) 1 unit PO 1400 [facility] Last Admin: 12/18/18 13:31 Dose: 1 unit Insulin Human Regular (Humulin R Low) 0 units SC ACHS [facility]; Protocol Last Admin: 12/19/18 11:28 Dose: Not Given Levalbuterol HCl (Xopenex) 1.25 mg IH [id number] PRN PRN Reason: Shortness of Breath Levothyroxine Sodium (Synthroid) 50 mcg PO ACB [facility] Ondansetron HCl (Zofran Inj) 4 mg IVP Q4H PRN PRN Reason: Nausea/Vomiting Last Admin: 12/16/18 11:32 Dose: 4 mg Oxycodone HCl (Oxycodone Immediate Release Tab) 10 mg PO Q6H PRN PRN Reason: Pain, severe (8-10) Last Admin: 12/19/18 09:53 Dose: 10 mg Pantoprazole Sodium (Protonix Ec Tab) 20 mg PO ACB [facility] Last Admin: 12/19/18 09:56 Dose: 20 mg Pregabalin (Lyrica) 50 mg PO BID [facility] Last Admin: 12/19/18 09:53 Dose: 50 mg Promethazine HCl/Dextromethorphan (Phenergan Dm Syrup) 5 ml PO Q6H PRN PRN Reason: Cough Sennosides (Senokot Tab) 8.6 mg PO DAILY [facility] Last Admin: 12/19/18 09:54 Dose: 8.6 mg Sitagliptin Phosphate (Januvia) 25 mg PO DAILY [facility] Last Admin: 12/19/18 09:53 Dose: 25 mg Sodium Bicarbonate (Sodium Bicarbonate Tab) 1,300 mg PO TID [facility] Last Admin: 12/19/18 09:54 Dose: 1,300 mg Tizanidine HCl (Zanaflex) 2 mg PO TID [facility] Last Admin: 12/19/18 09:54 Dose: 2 mg - Labs Labs: 12/15/18 12:00 12/19/18 06:45
[2018-12-19] MEDS: LINACLOTIDE 290 MCG PO SCH (14:39)
--- NOTE | 2018-12-19 15:52 | PN ---
DATE: 12/19/2018 ENDO FOLLOWUP NOTE LOCATION: Room 570. SUBJECTIVE: This is a 58-year-old female with recent acute renal insufficiency on the background of chronic kidney disease and is now being followed closely for metabolic management. She presented with initial low cortisol levels as noted, although she remains clinically and has also been stable hemodynamically with vital signs as noted. Her glucose. Her glucose levels have ranged from 92-100-107 mg/dL. Her bedtime glucose was 118 as noted. The chemistries today showed a BUN of 35, sodium 143, potassium 4.9, chloride 117, CO2 is 18, glucose is 81 and creatinine is 1.8. Her T4 is 10.3 with a TSH of 7.70. The cortisol levels done today following Cortrosyn stimulation tests are still pending at this time. ASSESSMENT This is a 58-year-old female with type 2 diabetes and near optimal metabolic control on the low-dose oral hypoglycemic therapy and is now being followed closely for metabolic management.. She also is clinically euthyroid, but biochemically has early hypothyroidism related to a subtherapeutic dose regimen as given. The possibility of hypoadrenalism or adrenal insufficiency is being brought in at this time and we are waiting the Cortrosyn stimulation test report as noted. PLAN OF MANAGEMENT: We will titrate and increase her levothyroxine to 50 mcg once daily in the morning as ordered. We will titrate incremental as indicated to optimize metabolic control. We will continue the Januvia given as 25 mg once daily in the morning as ordered. We will also consider the addition of cortisone replacement if indeed we can confirm the presence of primary and secondary hypoadrenalism or adrenal insufficiency. We will follow and advise accordingly. Parul Acevedo MD
--- NOTE | 2018-12-19 16:03 | NM ---
Date of service: 12/19/2018 COMPARISON: 03/05/2018 TECHNIQUE: 30.0 mCi technetium 99-m DTPA aerosol. 3.6 mCI technetium 99-m MAA administered intravenously. FINDINGS: VENTILATION COMPONENT: Normal. PERFUSION COMPONENT: Normal. IMPRESSION: Lowprobability ventilation perfusion scan for pulmonary embolism.
--- NOTE | 2018-12-19 18:03 | CP.PCM.PN ---
<Deisy Umana - Last Filed: 12/19/18 17:59> Subjective - Date & Time of Evaluation Date of Evaluation: 12/19/18 Time of Evaluation: 14:00 - Subjective Subjective: Deisy Umana PGY2, GI Progress Note for Dr Dumont: Patient seen and examined at bedside. No acute events overnight. Patient reports ongoing epigastric pain and decreased appetite. Patient reports only eating 10- 20% pureed diet. Reports ongoing back pain. Objective - Vital Signs/Intake and Output Vital Signs (last 24 hours): Temp Pulse Resp BP Pulse Ox 98.1 F 75 20 106/68 94 L 12/19/18 14:00 12/19/18 14:00 12/19/18 14:00 12/19/18 14:00 12/19/18 14:00 Intake and Output: 12/19/18 12/19/18 06:59 18:59 Intake Total 120 Balance 120 - Medications Medications: Current Medications Aspirin (Ecotrin) 81 mg PO DAILY [facility] Last Admin: 12/19/18 09:53 Dose: 81 mg Atorvastatin Calcium (Lipitor) 40 mg PO DIN [facility] Last Admin: 12/19/18 16:53 Dose: Not Given Enoxaparin Sodium (Lovenox) 30 mg SC DAILY [facility] Last Admin: 12/19/18 09:53 Dose: 30 mg Famotidine (Pepcid) 20 mg PO HS [facility] Last Admin: 12/18/18 21:24 Dose: 20 mg Home Med (Home Med) 1 unit PO 1400 [facility] Last Admin: 12/19/18 14:39 Dose: 1 unit Insulin Human Regular (Humulin R Low) 0 units SC ACHS [facility]; Protocol Last Admin: 12/19/18 16:52 Dose: Not Given Levalbuterol HCl (Xopenex) 1.25 mg IH [id number] PRN PRN Reason: Shortness of Breath Levothyroxine Sodium (Synthroid) 50 mcg PO ACB [facility] Ondansetron HCl (Zofran Inj) 4 mg IVP Q4H PRN PRN Reason: Nausea/Vomiting Last Admin: 12/16/18 11:32 Dose: 4 mg Oxycodone HCl (Oxycodone Immediate Release Tab) 10 mg PO Q6H PRN PRN Reason: Pain, severe (8-10) Last Admin: 12/19/18 09:53 Dose: 10 mg Pantoprazole Sodium (Protonix Ec Tab) 20 mg PO ACB [facility] Last Admin: 12/19/18 09:56 Dose: 20 mg Pregabalin (Lyrica) 50 mg PO BID [facility] Last Admin: 12/19/18 17:33 Dose: Not Given Promethazine HCl/Dextromethorphan (Phenergan Dm Syrup) 5 ml PO Q6H PRN PRN Reason: Cough Sennosides (Senokot Tab) 8.6 mg PO DAILY [facility] Last Admin: 12/19/18 09:54 Dose: 8.6 mg Sitagliptin Phosphate (Januvia) 25 mg PO DAILY [facility] Last Admin: 12/19/18 09:53 Dose: 25 mg Sodium Bicarbonate (Sodium Bicarbonate Tab) 1,300 mg PO TID [facility] Last Admin: 12/19/18 17:33 Dose: Not Given Tizanidine HCl (Zanaflex) 2 mg PO TID [facility] Last Admin: 12/19/18 17:33 Dose: Not Given - Labs Labs: 12/15/18 12:00 12/19/18 06:45 - Additional Findings Additional findings: - Constitutional Appears: Non-toxic, No Acute Distress - Head Exam Head Exam: ATRAUMATIC, NORMOCEPHALIC - Eye Exam Eye Exam: EOMI, PERRL. absent: Conjunctival injection, Nystagmus, Scleral icterus Pupil Exam: NORMAL ACCOMODATION, PERRL. absent: Irregular, Miosis, Mydriatic, Unequal - ENT Exam ENT Exam: Mucous Membranes Moist - Neck Exam Neck Exam: Full ROM - Respiratory Exam Respiratory Exam: Clear to Ausculation Bilateral, NORMAL BREATHING PATTERN. absent: Accessory Muscle Use, Rhonchi, Wheezes, Stridor - Cardiovascular Exam Cardiovascular Exam: +S1, +S2. absent: Murmur - GI/Abdominal Exam GI & Abdominal Exam: Soft, Normal Bowel Sounds, + diffuse tenderness on deep palpation, more in epigastric region. absent: Distended, Guarding, Rigid, Mass - Extremities Exam Extremities Exam: Normal Inspection. absent: Calf Tenderness, Pedal Edema - Back Exam Back Exam: NORMAL INSPECTION - Neurological Exam Neurological Exam: Alert, Awake, Oriented x3 - Psychiatric Exam Psychiatric exam: Normal Affect, Normal Mood - Skin Skin Exam: Dry, Normal Color, Warm Assessment and Plan - Assessment and Plan (Free Text) Assessment: This is a 58 year old female with PMH DM, HTN, obesity, osteoarthritis, is here for chronic back pain. GI consulted for nausea, vomitin. Nausea, vomiting 2/2 likely gastroparesis vs esophagitis vs gastroenteritis vs chronic constipation 2. Chronic constipation 2/2 IBS, opioid medication induced 3. JACINTO on CKD 4. History of hypothyroidism, gastroparesis, HTN 5. Acute exacerbation of chronic back pain 6. Adrenal insufficiency - Recommend continuing zofran as needed for nausea. - continue with pureed diet. - Will schedule patient for EGD tomorrow. NPO after midnight. - continue with home Linzess and sennosides for constipation. Will monitor bowel movements. - Cr trending down, nephro on board. - c/w pain management as per primary team. - will monitor Discussed case with Dr Dumont. <Christina Dumont V - Last Filed: 12/19/18 23:43> Objective - Vital Signs/Intake and Output Vital Signs (last 24 hours): Temp Pulse Resp BP Pulse Ox 98.5 F 82 20 107/71 95 12/19/18 22:00 12/19/18 22:00 12/19/18 22:00 12/19/18 22:00 12/19/18 22:00 Intake and Output: 12/19/18 12/20/18 18:59 06:59 Intake Total 120 240 Balance 120 240 - Medications Medications: Current Medications Aspirin (Ecotrin) 81 mg PO DAILY [facility] Last Admin: 12/19/18 09:53 Dose: 81 mg Atorvastatin Calcium (Lipitor) 40 mg PO DIN [facility] Last Admin: 12/19/18 16:53 Dose: Not Given Enoxaparin Sodium (Lovenox) 30 mg SC DAILY [facility] Last Admin: 12/19/18 09:53 Dose: 30 mg Famotidine (Pepcid) 20 mg PO HS [facility] Last Admin: 12/19/18 21:51 Dose: 20 mg Home Med (Home Med) 1 unit PO 1400 [facility] Last Admin: 12/19/18 14:39 Dose: 1 unit Insulin Human Regular (Humulin R Low) 0 units SC ACHS [facility]; Protocol Last Admin: 12/19/18 23:12 Dose: Not Given Levalbuterol HCl (Xopenex) 1.25 mg IH [id number] PRN PRN Reason: Shortness of Breath Levothyroxine Sodium (Synthroid) 50 mcg PO ACB [facility] Ondansetron HCl (Zofran Inj) 4 mg IVP Q4H PRN PRN Reason: Nausea/Vomiting Last Admin: 12/16/18 11:32 Dose: 4 mg Oxycodone HCl (Oxycodone Immediate Release Tab) 10 mg PO Q6H PRN PRN Reason: Pain, severe (8-10) Last Admin: 12/19/18 09:53 Dose: 10 mg Pantoprazole Sodium (Protonix Ec Tab) 20 mg PO ACB [facility] Last Admin: 12/19/18 09:56 Dose: 20 mg Pregabalin (Lyrica) 50 mg PO BID [facility] Last Admin: 12/19/18 20:10 Dose: 50 mg Promethazine HCl/Dextromethorphan (Phenergan Dm Syrup) 5 ml PO Q6H PRN PRN Reason: Cough Sennosides (Senokot Tab) 8.6 mg PO DAILY [facility] Last Admin: 12/19/18 09:54 Dose: 8.6 mg Sitagliptin Phosphate (Januvia) 25 mg PO DAILY [facility] Last Admin: 12/19/18 09:53 Dose: 25 mg Sodium Bicarbonate (Sodium Bicarbonate Tab) 1,300 mg PO TID [facility] Last Admin: 12/19/18 17:33 Dose: Not Given Tizanidine HCl (Zanaflex) 2 mg PO TID [facility] Last Admin: 12/19/18 21:54 Dose: 2 mg - Labs Labs: 12/15/18 12:00 12/19/18 06:45 Attending/Attestation - Attestation I have personally seen and examined this patient.: Yes I have fully participated in the care of the patient.: Yes I have reviewed all pertinent clinical information, including history, physical exam and plan: Yes Notes (Text): This is an addendum to the GI progress report dictated by the resident. Patient still remains symptomatic with nausea vomiting. History of esophageal ul cers/erosions in the past. Patient has been taking only H2 blockers that do not on a regular basis. She would benefit from the endoscopy to further evaluate to rule out esophageal ulceration ulcer disease in view of his persistent symptoms. Patient also has gastroparesis that also can contribute to her symptom 12/19/18 23:42
--- NOTE | 2018-12-19 22:10 | PN ---
DATE: 12/18/2018 SUBJECTIVE: Patient still complains of severe back pain. Patient has difficulty ambulation because of pain. She also had low blood pressure. No other complaints. No chest pain. No short of breath. PHYSICAL EXAMINATION VITAL SIGNS: Temperature is 98.5, heart rate 81, blood pressure 85/52, respirations 20, saturation 95% HEAD AND NECK: Normal. No JVD. No thyromegaly. CHEST: Clear bilateral. CARDIAC: First sound and second sound normal. No murmur, rub, or gallop. ABDOMEN: Obese and nontender. EXTREMITIES: No edema. NEUROLOGIC: Normal. LABORATORY DATA: On the ; cortisol level was 3.6, low and previously was 2. So, it is low cortisol level. Her sodium is 143, potassium 5, chloride 118, bicarb 19, BUN 43, creatinine 2.2, blood sugar 88. Uric acid 7.8. Calcium 8.9. Patient's CBC was stable. White count 11, hemoglobin 12.3, hematocrit 40.8, and platelets 288. IMPRESSION AND PLAN 1. low cortisol level r/o adrenal insufficiency. We will get consultation by Dr. Walton to rule out other etiology or associated endocrinopathy. Continue followup with the oim consultant about that. It could be possibly related to her low blood pressure. 2. Hypertension. Continue IV fluids with sodium carbonate, stable. Also runs below 90. We will continue follow up of that. 3. Severe intractable back pain. We will consult Dr. Mclean. We will follow up on that. MRI shows disc on one side and in the lumbosacral area. We will see pain management consults. 4. Diabetes. Continue insulin coverage. Continue Januvia. 5. Hypercholesterolemia. Continue Lipitor. Plan, continue current therapy. 6. Acute renal insufficiency chronic, seems to be getting worse. Continue IV fluids. Follow up with Dr. Jeramy Zayas. We will follow with other oim consultant. Continue current therapy. Isac Kendrick MD JACKIE
--- NOTE | 2018-12-19 23:02 | PN ---
DATE: 12/19/2018 SUBJECTIVE: The patient is experiencing nausea. She denies any shortness of breath. She did report chest pain at the time of doing echocardiographic study related to the pressure of the transducer. PHYSICAL EXAMINATION VITAL SIGNS: Blood pressure 128/57, heart rate 73, temperature 98.3, and respirations 18. HEENT: Normocephalic. CHEST: Clear. HEART: S1 and S2, regular. EXTREMITIES: Trace leg edema. LABORATORY DATA: Today's SMA-7; sodium 143, potassium 4.9, chloride 117, CO2 of 18, glucose 83, BUN 35, and creatinine 1.8. Echocardiographic study performed yesterday revealed normal left ventricular wall thickness and ejection fraction as well as normal segmental wall motion. Mild pulmonary hypertension. ASSESSMENT: 1. Gastroparesis. 2. Chronic renal insufficiency. 3. Small paracentral disc protrusion at L5-S1. RECOMMENDATIONS: Continue aspirin 81 mg once a day, Lipitor 20 mg once a day, Lovenox 30 mg once a day, Pepcid 20 mg at bedtime, Synthroid 50 mcg once a day. No further cardiac workup is indicated at this time. Shahid Hartman MD
--- NOTE | 2018-12-20 00:55 | PN ---
DATE: 12/19/2018 SUBJECTIVE: The patient is comfortable, no distress. Still complained of pain. Percocet 10 mg was given. The patient had the cosyntropin test or adrenal insufficiency testing and results are done. Otherwise, she complained of some chest discomfort. No other complaints there. PHYSICAL EXAMINATION: VITAL SIGNS: Here, temperature 98, heart rate 73, blood pressure 128/57, respirations 18, and saturation 97%. HEAD AND NECK: Normal. No JVD. No thyromegaly. CHEST: Clear bilateral. CARDIAC: First sound and second sound normal. No murmur, rub, or gallop. ABDOMEN: Soft, obese, nontender. EXTREMITIES: No edema. NEUROLOGIC: Normal. LABORATORY DATA: Sodium 143, potassium 4.9, chloride 117, bicarb 18, BUN 35, creatinine 1.8. Liver function test is normal. The patient also had a TSH 7.7. She also has cortisol a.m. sample after a cosyntropin test had been done and it was increased to 15.4 cortisol level. IMPRESSION AND PLAN: 1. Severe intractable back pain. Continue Percocet for now. We added Lyrica. The patient also getting Lyrica 50 mg two times daily plus Percocet 10 mg every 6 hours as needed. May benefit from epidural injections. Spoke with Dr. Mclean's office. He will be seeing the patient in the morning. 2. . low cortisol level improved . discussed dr izaguirre, [facility]. 3. Hypothyroidism. Thyroid-stimulating hormone is high. The patient currently started on Synthroid 50 mcg before breakfast. 4. Diabetes. Continue Januvia and insulin. 5. Hypercholesterolemia. 6. Obesity. PLAN: Continue current therapy. CURRENT MEDICATIONS: Aspirin 81 mg, insulin low algorithm, Januvia 25, Lipitor 40, Lovenox 30 subcu daily, Lyrica 50 b.i.d., oxycodone 10, Pepcid 20 every bedtime, she is getting promethazine DM, Protonix 20, Senokot for constipation, sodium bicarb IV fluid, Synthroid 50, Xopenex q.i.d., Zanaflex 2 mg t.i.d., Zofran 4 mg IV every 4 hours. The patient also had a V/Q scan, was low probability, and she had a venous Doppler of both lower extremities, was negative. Continue current therapy. Isac Kendrick MD JACKIE
[2018-12-20] MEDS: Pantoprazole 20 mg EC Tab PO SCH (07:30)
[2018-12-20] MEDS: Insulin Reg-LOW-Coverage SC SCH ×3 (07:30→16:30)
[2018-12-20] MEDS: Levothyroxine 25 MCG TAB PO SCH ×2 (07:39→11:38)
[2018-12-20] MEDS ORDERED: oxyCODONE 5 mg Immediate Release Tab PO PRN (08:50)
[2018-12-20 09:20] VITALS: TEMP 98
[2018-12-20] MEDS ORDERED: Propofol 10 mg/ml Inj (20 ML) ONE (09:34)
[2018-12-20] MEDS ORDERED: Morphine 2 mg/ml ISec IVP PRN (10:04)
[2018-12-20] MEDS ORDERED: Sodium Chloride 0.9% 1,000 ML IV SCH (10:15)
[2018-12-20 10:16] VITALS: RESP 12; O2SAT 99
[2018-12-20 10:33] VITALS: BP 117/64; PULSE 57
--- NOTE | 2018-12-20 11:35 | CP.PCM.PCO ---
Additional Comments - Additional Comments Additional Comments: D/W Dr. Mclean, will increase Zanaflex to 4mg qhs, c/w Lyrica and Oxycodone 5mg q8h PRN, no epidural injection for now and needs physical therapy as outpatient. D/W Dr. Acevedo, does not recommend steroids at this time as Cortrosyn Stimulation Test is normal. Pt is s/p EGD today which showed esophageal mucosal changes, gastritis and gastoparesis. GI recommendations noted. Discussed plan w/ Dr. Kendrick. Will continue to follow.
--- NOTE | 2018-12-20 12:36 | CON ---
DATE: 12/20/2018 REQUESTING PHYSICIAN: Isac Kendrick MD. CHIEF COMPLAINT: Low back pain and bilateral knee pain. HISTORY OF PRESENT ILLNESS: Mrs. Lomeli is a pleasant 58-year-old female who was admitted to [facility] for with severe low back pain, tingling and numbness to bilateral lower extremity. The patient stated that she has been complaining of chronic back pain over the years and also she has been having increasing neck pain as well, but her main issue was back pain. The patient is also complaining of bilateral knee pain, especially with walking for longer distance or going up or downstairs or getting up from sitting position. Her pain level on today's evaluation is 7/10. The patient was prescribed Lyrica and oxycodone and as per nurse the patient is not asking for oxycodone and able to manage with other medication. PAST MEDICAL HISTORY: The patient having history of insulin-dependant diabetes mellitus, hypothyroidism, hypercholesteremia, osteoarthritis, acid reflux, osteoporosis, gouty arthritis. HOME MEDICATION: Pravachol 40 mg, Synthroid 25 mcg, aspirin, Januvia, Protonix and methenamine, Linzess, Vitamin D, bisoprolol, allopurinol and oxycodone as needed. ALLERGIES: THE PATIENT IS ALLERGIC TO APPLE. REVIEW OF SYSTEM: A 14-point review of system is negative except what is mentioned in history of present illness. PHYSICAL EXAMINATION: GENERAL: She is lying down in bed, in no acute distress. VITAL SIGNS: She is afebrile. Vital sings stable. HEENT: Head is normocephalic and atraumatic. CARDIOVASCULAR: S1 and S2 is normal. LUNGS: Clear to auscultation bilaterally. ABDOMEN: Soft and nontender. Nondistended. NEUROMUSCULAR: She is alert, awake and oriented x3. Concentrates very well. Cranial nerves II through XII grossly intact. Coordination is grossly intact. Speech is normal. There is tenderness over spinous process of lumbar spine and bilateral lumbar paraspinal. Straight leg raising test is negative bilaterally. Sensation to light touch is intact in bilateral lower extremity. There is significant tenderness over bilateral greater trochanter, left worse than right. There is medial joint line tenderness bilateral knee with evidence of previous arthroscopic surgery of both knees. There is palpable crepitus bilateral knee and tenderness of bursa. RADIOLOGIC STUDIES: MRI of lumbar spine done on 12/17/2018, showed right lateral disc protrusion extending into neuroforamen with degenerative disc disease. IMPRESSION: Chronic low back pain secondary to lumbar degenerative disc disease and L5-S1 disc protrusion associated with radiculopathy. Bilateral knee osteoarthritis. RECOMMENDATIONS: 1. Lyrica 50 mg b.i.d. 2. Zanaflex 4 mg at bedtime. 3. Oxycodone 5 mg every 8 hours as needed for pain. 4. The patient was encouraged to do physical therapy. She stated that her last physical therapy course was 2-3 years ago. 5. Discussed with the patient treatment plan. At this point, the patient to stay on the medication and I encouraged physical therapy, if medication and physical therapy is not helping she is a good candidate for lumbar interlaminar steroid injection L5 S1, also discussed different options for knee osteoarthritis ranging from steroid injection, hyaluronic acid injection, PRP injection and genicular nerve block. The patient verbalized understanding and was instructed to followup as an outpatient with our practice if needed. Isac Mclean MD
[2018-12-20] MEDS: LINACLOTIDE 290 MCG PO SCH (13:35)
--- NOTE | 2018-12-20 13:50 | CP.PCM.PN ---
Subjective - Date & Time of Evaluation Date of Evaluation: 12/20/18 Time of Evaluation: 13:49 - Subjective Subjective: Nephrology Consultation Note: Assessment: stable JACINTO likely hemodynamic, pre-renal and low Bp related Diabetic chronic Kidney Disease (E11.22) Chronic Kidney Disease (N18.3) Stage 3 without proteinuria (R80.9) stable Anemia (D64.9), obesity, knee OA Back pain Kidney stone Acidosis Hypotension ? etiology Plan No acute need for renal replacement therapy at this time. Maintain hemodynamics stable. Avoid hypotension. Patient not on ACEI/ARB due to recent JACINTO and low BP Monitor Input/Output, daily weights and renal function with basic metabolic panel c/w sodium bicarb back pain work up ongoing. unlikely to be renal related pending renin/leilani seen by endocrine, had acth stim test Dose meds/antibiotics for reduced GFR. Avoid fleets enema/magnesium based laxatives. Avoid nephrotoxins/NSAIDs/ iodinated contrast (unless needed emergently) Glycemic control Further work up/management as per primary team pt stable for d/c from renal perspective when planned with outpt f/up Thanks for allowing me to participate in care of your patient. Will follow patient with you. Please call if any Qs. had d/w team Dr Jeramy Zayas Office: [phone] ROS: c/o low back pain denies CP/SOB. no urine complaints except smell associated with it egd showed gastritis and gastroparesis Physical Examination: General Appearance: Comfortable, in no acute respiratory distress, co-operative . obese Vitals reviewed and noted as below Head; Atraumatic, normocephalic ENT: no ulcers no thrush. Tongue is midline. Oropharynx: no rash or ulcers. EYES: Pupils are equal, round and reactive to light accommodation. Eye muscles and extraocular movement intact. Sclera is anicteric. Neck; supple no lymphadenopathy, no thyromegaly or bruit Lungs: Normal respiratory rate/effort. Breath sounds bilateral equal and clear Heart: Normal rate. s1s2 normal. No rub or gallop. Extremities: no pitting edema. No varicose veins Neurological: Patient is alert, awake and oriented to person, place and time. No focal deficit. Strength bilateral appropriate and equal Skin: Warm and dry. Normal turgor. No rash. Palpitation: Normal elasticity for age Abdomen: Abdomen is soft. Bowel sounds +. There is no abdominal tenderness, no guarding/rigidity no organomegaly Psych: normal insight and normal affect/mood MSK: Digits and nails normal, no deformity : kidney or bladder not palpable Labs/imaging reviewed. Past medical history, past surgical history, family history, social history, allergy reviewed and noted as below Family hx: no hx of CKD. Rest non-contributory UA no protein, SG >1.030 renal imaging left kidney 3 mm calculi non-obs Objective - Vital Signs/Intake and Output Vital Signs (last 24 hours): Temp Pulse Resp BP Pulse Ox 98 F 57 L 12 117/64 99 12/20/18 10:31 12/20/18 10:31 12/20/18 10:31 12/20/18 10:31 12/20/18 10:31 Intake and Output: 12/20/18 12/20/18 06:59 18:59 Intake Total 240 Balance 240 - Medications Medications: Current Medications Aspirin (Ecotrin) 81 mg PO DAILY [facility] Last Admin: 12/20/18 10:38 Dose: Not Given Atorvastatin Calcium (Lipitor) 40 mg PO DIN [facility] Last Admin: 12/19/18 16:53 Dose: Not Given Enoxaparin Sodium (Lovenox) 30 mg SC DAILY [facility] Last Admin: 12/19/18 09:53 Dose: 30 mg Famotidine (Pepcid) 20 mg PO HS [facility] Last Admin: 12/19/18 21:51 Dose: 20 mg Home Med (Home Med) 1 unit PO 1400 [facility] Last Admin: 12/20/18 13:35 Dose: 1 unit Insulin Human Regular (Humulin R Low) 0 units SC ACHS [facility]; Protocol Last Admin: 12/20/18 11:38 Dose: Not Given Levalbuterol HCl (Xopenex) 1.25 mg IH [id number] PRN PRN Reason: Shortness of Breath Levothyroxine Sodium (Synthroid) 50 mcg PO ACB [facility] Last Admin: 12/20/18 11:38 Dose: 50 mcg Morphine Sulfate (Morphine) 2 mg IVP Q4H PRN PRN Reason: Pain, moderate (4-7) Ondansetron HCl (Zofran Inj) 4 mg IVP Q4H PRN PRN Reason: Nausea/Vomiting Last Admin: 12/16/18 11:32 Dose: 4 mg Oxycodone HCl (Oxycodone Immediate Release Tab) 5 mg PO Q8H PRN PRN Reason: Pain, severe (8-10) Last Admin: 12/20/18 13:35 Dose: 5 mg Pantoprazole Sodium (Protonix Ec Tab) 20 mg PO ACB [facility] Last Admin: 12/20/18 07:30 Dose: Not Given Pregabalin (Lyrica) 50 mg PO BID [facility] Last Admin: 12/20/18 11:36 Dose: 50 mg Promethazine HCl/Dextromethorphan (Phenergan Dm Syrup) 5 ml PO Q6H PRN PRN Reason: Cough Sennosides (Senokot Tab) 8.6 mg PO DAILY [facility] Last Admin: 12/20/18 10:39 Dose: Not Given Sitagliptin Phosphate (Januvia) 25 mg PO DAILY [facility] Last Admin: 12/20/18 11:37 Dose: 25 mg Sodium Bicarbonate (Sodium Bicarbonate Tab) 1,300 mg PO TID [facility] Last Admin: 12/20/18 13:36 Dose: 1,300 mg Tizanidine HCl (Zanaflex) 4 mg PO [facility] - Labs Labs: 12/15/18 12:00 12/19/18 06:45
--- NOTE | 2018-12-20 14:37 | PN ---
DATE: 12/20/2018 SUBJECTIVE: The patient did report chest discomfort yesterday. D-dimer was performed and was elevated. Ventilation-perfusion scan was performed and revealed low probability for pulmonary embolus. The patient did undergo upper endoscopy today and the findings were consistent with diffuse mild inflammation characterized by congestion, edema, erythema, and friability. In the stomach, suspect gastroparesis due to absence of peristalsis. Normal duodenal examination. At the time, the patient is in her room. She denies any chest pain or shortness of breath. She complains of low back pain which she did have prior to her endoscopy and required morphine sulfate injection. PHYSICAL EXAMINATION: VITAL SIGNS: Blood pressure 117/64, heart rate 67, temperature 98, respirations 12. HEENT: Normocephalic. CHEST: Clear. HEART: S1 and S2 regular. EXTREMITIES: 1+ pitting edema. LABORATORY DATA: Today's blood sugar is 79. ASSESSMENT: 1. Atypical chest discomfort, one set of troponin yesterday was negative, and ventilation-perfusion scan was low probability. 2. Gastritis and gastroparesis. 3. Chronic insufficiency. 4. Hypertension and diabetes mellitus. 5. Small paracentral disk protrusion at L5-S1. RECOMMENDATIONS: Continue current aspirin 81 mg once a day, Januvia 25 mg once a day, Lipitor at 20 mg once a day, Lovenox was on hold for the endoscopy. Continue Pepcid 20 mg once a day, morphine sulfate 2 mg *------*every 4 hours p.r.n., Synthroid at 50 mcg once a day, and Zofran 4 mg *------* every 4 hours p.r.n. No further cardiac workup is indicated and the plan for the patient is to undergo epidural as an outpatient. Shahid Hartman MD
[2018-12-20 19:03] LABS: ALDO/PRA RATIO 4.5 Ratio (0.9-28.9)
--- NOTE | 2018-12-20 19:26 | PN ---
DATE: 12/20/2018 ENDOCRINOLOGY FOLLOWUP NOTE LOCATION: In room 570. SUBJECTIVE: This is a 58-year-old female with recent admission for generalized body weakness and supervening hypotension and is now improving clinically and hemodynamically as noted thereof. Her Cortrosyn stimulation test showed a baseline cortisol of 3.6 and a 1 hour 0.4 of 15.4 mcg/dL, which is actually normal excluding the possibility of underlying adrenal insufficiency. She remains clinically and biochemically euadrenal at this time. However, the albumin levels are 2.96 quite low, which may explain the low normal cortisol levels as noted. With the low albumin, we expect very low cortisol binding globulin, which will give a falsely low cortisol level accordingly. Her TSH is 7.70 with a T4 of 10.3 indicative of subclinical hypothyroidism as noted. So, at this time, we will titrate levothyroxine to 50 mcg once daily as ordered. We will obtain serial chemistries and supplement accordingly as needed. We will follow. Parul Acevedo MD
--- NOTE | 2018-12-22 00:26 | DS ---
HISTORY OF PRESENT ILLNESS: A 58-year-old female, came into the hospital with intractable back pain, and found to have some upper GI discomfort. She also was found to have low blood pressures and acute rise in her creatinine to 2.5. The patient was seen by Nephrology Consults and cortisone level found to be low, and Endocrine Consult saw the patient and cosyntropin test was done and it shows appropriate response with increase in cortisone level to about 17.5 which is cataphoric for normal response. She did well and her pain was improved with Percocet and seen by Pain Management. MRI was done and will be followed up as outpatient. is going to see the patient. She will get possibly some epidural injection as outpatient. Her blood sugar is running good. She has no chest pain. She did develop some epigastric discomfort, for which she had upper endoscopy which shows gastroparesis, mild gastritis, possible Palomares's esophagus, biopsy was taken of the lower part of the esophagus. She will follow up with Dr. Dumont as outpatient. The patient is otherwise stable. DISCHARGE PHYSICAL EXAMINATION: GENERAL: She seems better, looks better, and more comfortable. VITAL SIGNS: Temperature 98, heart rate 78, blood pressure 123/64, respiration 12, and saturating 99% on 2 liters. HEAD AND NECK: Normal. No JVD. No thyromegaly. CHEST: Clear bilaterally. CARDIAC: First sound and second sound normal. ABDOMEN: Soft and nontender. EXTREMITIES: No edema. NEUROLOGIC: Normal. LABORATORY DATA: Her chemistry; blood sugar running 84 and 80 without any insulin. The patient advised to stop her insulin at home and monitor her sugar only. DISCHARGE DIAGNOSES: 1. Severe intractable back pain secondary to degenerative disc disease, . 2. Gastroparesis, esophagitis, lower end or Palomares's esophagus. She will follow up with Dr. Dumont for result of the biopsy and will see in a week. 3. Low cortisone level, seems doing okay now. We will monitor her status and ACTH level was done. We will follow up on that; seems in normal range as per Dr. Walton. Continue that. 4. Hypothyroidism. The patient is getting Synthroid. We will increase her Synthroid from 25 mcg to 50 mcg daily. 5. Hypercholesterolemia. 6. Constipation. 7. Insomnia. PLAN: Continue Linzess. Continue Lipitor, Pepcid, Protonix 20 mg, Januvia 25 mg p.o. daily, Lyrica 50 mg b.i.d., oxycodone every 8 hours 5 mg p.r.n., Zanaflex 4 mg p.o. at bedtime, vitamin D once a week, and Linzess p.o. daily. The patient will also continue aspirin after meals, atorvastatin 40 mg at bedtime, and allopurinol 100 mg p.o. daily. Follow up with Dr. Zayas for her chronic renal failure. Isac Kendrick MD
== END 2018-12-20 18:55 | disposition home or self-care (01) | DRG 552 ==
LOC: ED 10:42 → ERH 13:50 → 5RSO 16:32 → OBSVTOIN 12-17 09:22
PROVIDERS: ADMIT Internal Medicine; ATTEND Internal Medicine
PROC: 0DB48ZX Excision of Esophagogastric Junction, Via Natural or Artificial Opening Endoscopic, Diagnostic (ICD-10-PCS; principal; 2018-12-20 08:30)
DX: M51.27 Other intervertebral disc displacement, lumbosacral region (principal); N17.9 Acute kidney failure, unspecified; E87.2 Acidosis; E27.49 Other adrenocortical insufficiency; E23.0 Hypopituitarism; Z68.41 Body mass index [BMI] 40.0-44.9, adult; E11.43 Type 2 diabetes mellitus with diabetic autonomic (poly)neuropathy; K31.84 Gastroparesis; E11.42 Type 2 diabetes mellitus with diabetic polyneuropathy; I12.9 Hypertensive chronic kidney disease with stage 1 through stage 4 chronic kidney disease, or unspecified chronic kidney disease; N18.3 Chronic kidney disease, stage 3 (moderate); E11.22 Type 2 diabetes mellitus with diabetic chronic kidney disease; K29.70 Gastritis, unspecified, without bleeding; K21.0 Gastro-esophageal reflux disease with esophagitis; E66.01 Morbid (severe) obesity due to excess calories; M47.9 Spondylosis, unspecified; E78.00 Pure hypercholesterolemia, unspecified; N20.0 Calculus of kidney; G89.29 Other chronic pain; E86.1 Hypovolemia; I95.9 Hypotension, unspecified; I27.20 Pulmonary hypertension, unspecified; G47.33 Obstructive sleep apnea (adult) (pediatric); E03.9 Hypothyroidism, unspecified; K58.1 Irritable bowel syndrome with constipation; M17.0 Bilateral primary osteoarthritis of knee; D64.9 Anemia, unspecified; Z79.82 Long term (current) use of aspirin; Z79.890 Hormone replacement therapy; Z79.899 Other long term (current) drug therapy; Z79.84 Long term (current) use of oral hypoglycemic drugs

== ENCOUNTER 2018-12-23 19:52 | Emergency (ER) | payer MEDICARE, MEDICAID ==
[2018-12-23 20:01] VITALS: BMI 39.4
[2018-12-23 20:11] VITALS: RESP 18; TEMP 98.9
--- NOTE | 2018-12-23 20:18 | ED PDOC ---
Arrival/HPI - General Chief Complaint: GI Problem Time Seen by Provider: 12/23/18 20:09 - History of Present Illness Narrative History of Present Illness (Text): 58 y/o F p/w constipation x 2 days. Reports hard stool. Denies vomiting. Patient notes that she was admitted in this hospital in the past few days and was on morphine for intractible back pain and kidney stones. Patient denies fever, chills, chest pain, dyspnea, dysuria. Past Medical History - Infectious Disease Hx of Infectious Diseases: None - Tetanus Immunization Tetanus Immunization: Unknown - Reproductive Menopause: Yes - Cardiac Hx Hypertension: Yes - Pulmonary Hx Respiratory Disorders: No - Neurological Hx Neurological Disorder: No - HEENT Other/Comment: retinal disease - Renal Hx Renal Disorder: Yes Other/Comment: chronic renal insufficiency - Endocrine/Metabolic Hx Diabetes Mellitus Type 2: Yes - Hematological/Oncological Hx Blood Transfusions: No Hx Blood Transfusion Reaction: No - Integumentary Hx Dermatological Disorder: No - Musculoskeletal/Rheumatological Hx Arthritis: Yes - Gastrointestinal Hx Gastrointestinal Disorders: Yes - Genitourinary/Gynecological Hx Genitourinary Disorders: Yes Hx Urinary Tract Infection: Yes Other/Comment: hysterectomy - Psychiatric Hx Anxiety: Yes Hx Substance Use: No - Surgical History Other/Comment: hysterectomy - Anesthesia Hx Anesthesia Reactions: Yes (PALPITATIONS) Hx Malignant Hyperthermia: No - Suicidal Assessment Feels Threatened In Home Enviroment: No Family/Social History Family/Social History: No Known Family HX Smoking Status: Never Smoked Hx Alcohol Use: No Hx Substance Use: No Hx Substance Use Treatment: No Allergies/Home Meds Allergies/Adverse Reactions: Allergies apple Allergy (Verified 03/05/18 22:06) ITCHING/NASAL,THROAT CONGESTION Home Medications: Home Meds Medication Instructions Recorded Confirmed Ergocalciferol (Vitamin D2) 50,000 unit PO QWK 04/29/17 12/23/18 [Vitamin D2] Linaclotide [Linzess] 290 mcg PO DAILY 04/29/17 12/23/18 Review of Systems - Physician Review All systems were reviewed & negative as marked: Yes - Review of Systems Constitutional: absent: Fevers Respiratory: absent: SOB Physical Exam - Physical Exam Narrative Physical Exam (Text): Gen: NAD Head: NC/AT Eyes: PERRL ENT: MMM Neck: Supple Chest: No tenderness CV: Regular rate Lungs: CTA b/l Abd: Soft, NT Extremities: No deformity Skin: No rash Neuro: Alert Vital Signs Temp Pulse Resp BP Pulse Ox 12/23/18 20:10 98.9 F 94 H 18 117/64 97 Medical Decision Making ED Course and Treatment: Most likely opiate induced constipation. Rule out obstruction with CT. Add laxative medications and f/u PMD. 12/23/18 22:26 CT Abdomen and Pelvis without IV contrast CLINICAL HISTORY: R/O OBSTRUCTION TECHNIQUE: Axial computed tomography images of the abdomen and pelvis without intravenous contrast. 1179.35 mGy-cm CONTRAST: Without COMPARISON: None provided. FINDINGS: LUNG BASES: The lung bases appear clear. No pleural effusions are seen. LIVER: Unremarkable. GALLBLADDER AND BILE DUCTS: Status post cholecystectomy. No biliary ductal dilatation is evident. PANCREAS: Unremarkable. SPLEEN: Unremarkable. ADRENAL GLANDS: Unremarkable. KIDNEYS, URETERS, AND BLADDER: The kidneys appear within normal limits. There is no hydronephrosis or hydroureter. No urinary calculi are seen. The urinary bladder appeared normal in size and configuration. STOMACH AND BOWEL: A small hiatal hernia is identified. Unremarkable appearance of the stomach and bowel. No evidence of bowel obstruction. No evidence suggesting enteritis or colitis. APPENDIX: No evidence of acute appendicitis on CT examination. PERITONEUM: No free fluid. No free air. LYMPH NODES: No lymphadenopathy is evident. REPRODUCTIVE: Not visualized. Status post hysterectomy. VASCULATURE: No evidence of abdominal aortic aneurysm. Minor atherosclerotic vascular plaquing is present. BONES: No aggressive appearing osseous lesion. No acute osseous pathology evident. IMPRESSION: 1. A small hiatal hernia is identified. No evidence of bowel obstruction. 2. Status post hysterectomy. - RAD Interpretation Radiology Orders: 12/23/18 20:15 ABD & PELVIS W/O PO OR IV CONT [CT] Stat Disposition/Present on Arrival - Present on Arrival Any Indicators Present on Arrival: No History of DVT/PE: No History of Uncontrolled Diabetes: No Urinary Catheter: No History of Decub. Ulcer: No History Surgical Site Infection Following: None - Disposition Have Diagnosis and Disposition been Completed?: Yes Diagnosis: Constipation Disposition: HOME/ ROUTINE Disposition Time: 22:32 Patient Plan: Discharge Patient Problems: Current Active Problems Problem Status Onset Constipation Acute Condition: GOOD Discharge Instructions (ExitCare): Constipation in Adults Prescriptions: Docusate [Colace] 100 mg PO BID #30 cap Polyethylene Glycol 3350 [Miralax] 17 gm PO DAILY #238 gm Referrals: Isac Kendrick MD [Staff Provider] - Follow up with primary Forms: [email or web address] ([place])
[2018-12-24 02:43] VITALS: BP 110/68; PULSE 83; O2SAT 98
--- NOTE | 2018-12-24 12:26 | CT ---
Date of service: 12/23/2018 PROCEDURE: CT Abdomen and Pelvis without intravenous contrast HISTORY: constipated, r/o obstruction COMPARISON: 04/29/2017 TECHNIQUE: Without contrast.. Contrast dose: 0 Radiation dose: Total exam DLP = 1179.35 mGy-cm. This CT exam was performed using one or more of the following dose reduction techniques: Automated exposure control, adjustment of the mA and/or kV according to patient size, and/or use of iterative reconstruction technique. FINDINGS: LOWER THORAX: Small hiatal hernia. No infiltrate. LIVER: Unremarkable. No gross lesion or ductal dilatation. GALLBLADDER AND BILE DUCTS: Cholecystectomy PANCREAS: Unremarkable. No gross lesion or ductal dilatation. SPLEEN: Unremarkable. ADRENALS: Unremarkable. No mass. KIDNEYS AND URETERS: Unremarkable. No hydronephrosis. No solid mass. VASCULATURE: Unremarkable. No aortic aneurysm. There is minimal atherosclerotic calcification of the abdominal aorta. BOWEL: Unremarkable. No obstruction. No gross mural thickening. APPENDIX: Unremarkable. Normal appendix. PERITONEUM: Unremarkable. No free fluid. No free air. LYMPH NODES: Unremarkable. No enlarged lymph nodes. BLADDER: Unremarkable. REPRODUCTIVE: Status post hysterectomy. BONES: No acute fracture. OTHER FINDINGS: None. IMPRESSION: Small hiatal hernia. Status post hysterectomy. Otherwise unremarkable examination. The preliminary findings for this examination were reported by [facility] at 10:13 p.m. on 12/23/2018. There is concurrence of this report with the preliminary findings. Of 0 no I have
== END 2018-12-23 22:34 | disposition home or self-care (01) ==
LOC: ED 19:52
DX: K59.00 Constipation, unspecified (principal); I10 Essential (primary) hypertension